=== PATIENT | male | born 1955 | race Hispanic/Latino ===

== ENCOUNTER 2016-12-19 10:06 | Inpatient (IN) | payer OTHER ==
[2016-12-19] MEDS ORDERED: Sodium Chloride 0.9% 1,000 ML IV STA ×2 (10:55→11:09)
--- NOTE | 2016-12-19 10:55 | ED PDOC ---
Arrival/HPI - General Historian: Patient - History of Present Illness Time/Duration: < month Symptom Onset: Gradual Symptom Course: Worsening Quality: Other (described as a numbness type of pain) Severity Level: 10 <Chencho Ruiz - Last Filed: 12/19/16 12:30> <Fan Kessler - Last Filed: 12/19/16 12:40> - General Chief Complaint: Lower Extremity Problem/Injury Time Seen by Provider: 12/19/16 10:24 - History of Present Illness Narrative History of Present Illness (Text): 12/19/16 10:48 This is a 60 year old with PMHx CAD s/p CABG and stents, DM, HTN who presents complaining of right first toe pain. Patient states that it began about 2 weeks ago where it started off as a blister before developing into an ulcer, and he sought treatment. Patient could not specify whether the provider he saw was a PCP or a nondestructive tester. Patient was prescribed 7 days of Augmentin 875 BID and failed outpatient treatment. Patient states that the pain feels like a numbness that is 10/10 and non-radiating. Patient states that he believes it got worse because he has been walking on it. Patient denies fever, chills, chest pain, dyspnea, abdominal pain, dysuria. PMD: Dr. Cam (Chencho Ruiz) Past Medical History - Infectious Disease Hx of Infectious Diseases: None - Tetanus Immunization Tetanus Immunization: Up to Date - Cardiac Hx Hypertension: Yes Hx Pacemaker: No - Pulmonary Hx Respiratory Disorders: Yes Hx Sleep Apnea: Yes - Neurological Hx Paralysis: No - HEENT Hx HEENT Disorder: No - Renal Hx Renal Disorder: No - Endocrine/Metabolic Hx Endocrine Disorders: Yes Hx Diabetes Mellitus Type 2: Yes - Hematological/Oncological Hx Blood Transfusions: No (UNKNOWN- ) Hx Blood Transfusion Reaction: No - Integumentary Hx Dermatological Disorder: No - Musculoskeletal/Rheumatological Hx Musculoskeletal Disorders: Yes (HAND) - Gastrointestinal Hx Gastrointestinal Disorders: No - Genitourinary/Gynecological Other/Comment: R mastectomy at age14 - Psychiatric Hx Emotional Abuse: No Hx Physical Abuse: No Hx Substance Use: No (DENIED PASR ABUSE) - Surgical History Hx Appendectomy: Yes Hx Coronary Stent: Yes (x7) Hx Musculoskeletal Surgery: Yes Hx Open Heart Surgery: Yes (Bypass x 5) Hx Tonsillectomy: Yes Other/Comment: Heart Stents x 7 - Anesthesia Hx Anesthesia Reactions: No Hx Malignant Hyperthermia: No - Suicidal Assessment Feels Threatened In Home Enviroment: No <Chencho Ruiz - Last Filed: 12/19/16 12:30> Family/Social History Smoking Status: Never Smoked Hx Alcohol Use: Yes Frequency of alcohol use: Socially Hx Substance Use: No (DENIED PASR ABUSE) Hx Substance Use Treatment: No <Chencho Ruiz - Last Filed: 12/19/16 12:30> Family/Social History: No Known Family HX <Sukhwinder Kesslero Brant - Last Filed: 12/19/16 12:40> Allergies/Home Meds <Chencho Ruiz - Last Filed: 12/19/16 12:30> <Sukhwinder Kesslero Brant - Last Filed: 12/19/16 12:40> Allergies/Adverse Reactions: Allergies No Known Allergies Allergy (Verified 12/19/16 10:17) Home Medications: Home Meds Medication Instructions Recorded Confirmed Unobtainable 12/19/16 12/19/16 Review of Systems - Physician Review All systems were reviewed & negative as marked: Yes - Review of Systems Constitutional: Normal. absent: Fevers Eyes: Normal ENT: Normal Respiratory: Normal. absent: SOB Cardiovascular: Normal. absent: Chest Pain Gastrointestinal: Normal. absent: Abdominal Pain Genitourinary Male: Normal. absent: Dysuria Musculoskeletal: Other (right first toe pain) Skin: Ulcer (right first toe) Neurological: Normal Endocrine: Normal Hemo/Lymphatic: Normal Psychiatric: Normal <Chencho Ruiz - Last Filed: 12/19/16 12:30> Physical Exam Vital Signs Reviewed: Yes Temperature: Afebrile Blood Pressure: Normal Pulse: Regular Respiratory Rate: Normal Appearance: Positive for: Comfortable Pain Distress: None Mental Status: Positive for: Alert and Oriented X 3 - Systems Exam Head: Present: Atraumatic, Normocephalic Pupils: Present: PERRL Extroacular Muscles: Present: EOMI Conjunctiva: Present: Normal Mouth: Present: Moist Mucous Membranes Neck: Present: Normal Range of Motion Respiratory/Chest: Present: Clear to Auscultation, Good Air Exchange. No: Accessory Muscle Use Cardiovascular: Present: Regular Rate and Rhythm, Normal S1, S2 Abdomen: Present: Distention, Normal Bowel Sounds. No: Tenderness Upper Extremity: Present: Normal Inspection, NORMAL PULSES Lower Extremity: Present: Other (right first toe is warm to the touch. Ulcer on the underside of the first right toe not actively draining.). No: CALF TENDERNESS, NORMAL PULSES (diminished pulses bilaterally) Skin: Present: Warm, Dry. No: Rashes Psychiatric: Present: Alert, Oriented x 3 <Chencho Ruiz - Last Filed: 12/19/16 12:30> Medical Decision Making - Lab Interpretations I have reviewed the lab results: Yes <Chencho Ruiz - Last Filed: 12/19/16 12:30> <Fan Kessler - Last Filed: 12/19/16 12:40> ED Course and Treatment: 12/19/16 11:02 CBC, CMP, VBG with shock, Blood cultures, NS 2L bolus 12/19/16 11:02 Patient discovered with fingerstick glucose 500, so VBG with shock and NS ordered. Spoken with podiatry resident who stated that the Xray images were suspicious of a destructive process. Spoken with Dr. Cam at 12:25 who agreed for admission. (Chencho Ruiz) 12/19/16 12:15 60 yo male presents with toe pain. No fever. Glucose found to be elevated. Labs reviewed. No DKA. Glucose improving. Podiatry consulted. Vancomycin IV and Rocephin IV ordered for tx of Osteo. Signed out to Dr. Garcia to f/u glucose and admit to Dr. Cam. (Fan Kessler) - Lab Interpretations Lab Results: 12/19/16 10:55 12/19/16 10:55 Lab Results 12/19/16 12:33: POC Glucose (mg/dL) 319 H 12/19/16 10:55: pO2 79 H, VBG pH 7.34, VBG pCO2 46.0, VBG HCO3 24.8, VBG Total CO2 26.2, VBG O2 Sat (Calc) 97.2 H, VBG Base Excess -1.3 L, VBG Potassium 5.1, Sodium 129.0 L, Chloride 93.0 L, Glucose 706 H*, Lactate 2.7 H, FiO2 21.0, Venous Blood Potassium 5.1 12/19/16 10:55: Sodium 131 L, Chloride 94 L, Potassium 5.1 H, Carbon Dioxide 23 , Anion Gap 19, BUN 52 H, Creatinine 1.9 H, Est GFR ( Amer) 44, Est GFR ( Non-Af Amer) 36, Random Glucose 611 H* D, Calcium 9.2, Total Bilirubin 0.4, AST 23, ALT 26, Alkaline Phosphatase 96, Total Protein 7.6, Albumin 3.9, Globulin 3.7, Albumin/Globulin Ratio 1.1 12/19/16 10:55: WBC 11.8 H D, RBC 3.87, Hgb 11.5 L, Hct 34.5 L, MCV 89.1, MCH 29.7, MCHC 33.3, RDW 12.6, Plt Count 266, MPV 9.8, Gran % 74.8 H, Lymph % (Auto ) 17.1 L, Kane % (Auto) 6.3 H, Eos % (Auto) 1.4 L, Baso % (Auto) 0.4, Gran # 8.85 H, Lymph # 2.0, Kane # 0.8 H, Eos # 0.2, Baso # 0.05 12/19/16 10:43: POC Glucose (mg/dL) > 500 H* - RAD Interpretation Radiology Orders: 12/19/16 10:43 FOOT RIGHT 3 VIEWS ROUTINE [RAD] Stat - Medication Orders Current Medication Orders: Vancomycin HCl (Vancomycin 1gm) 1 gm in 250 mls @ 167 mls/hr IVPB STAT STA PRN Reason: Protocol Stop: 12/19/16 12:39 Last Admin: 12/19/16 11:15 Dose: 167 mls/hr Ceftriaxone Sodium (Rocephin 2 Gm Ivpb) 2 gm in 100 mls @ 100 mls/hr IVPB STAT STA PRN Reason: Protocol Stop: 12/19/16 12:46 Sodium Chloride (Sodium Chloride 0.9%) 1,000 mls @ 100 mls/hr IV .Q10H LA Insulin Human Regular (Humulin R Med) 0 units SC ACHS LA PRN Reason: Protocol Insulin Lispro Protam/Lispro Human (Humalog Mix 75/25) 10 units SC ACBD LA Discontinued Medications Sodium Chloride (Sodium Chloride 0.9%) 1,000 mls @ 999 mls/hr IV .Q1H1M STA Stop: 12/19/16 11:55 Last Admin: 12/19/16 11:14 Dose: 999 mls/hr Sodium Chloride (Sodium Chloride 0.9%) 1,000 mls @ 999 mls/hr IV .Q1H1M STA Stop: 12/19/16 12:09 Last Admin: 12/19/16 11:45 Dose: 999 mls/hr Insulin Human Regular (Humulin R) 10 units IV STAT STA Stop: 12/19/16 11:27 Last Admin: 12/19/16 11:46 Dose: 10 units Disposition/Present on Arrival - Present on Arrival Any Indicators Present on Arrival: No History of DVT/PE: No History of Uncontrolled Diabetes: No Urinary Catheter: No History of Decub. Ulcer: No History Surgical Site Infection Following: None - Disposition Have Diagnosis and Disposition been Completed?: Yes Disposition Time: 12:25 <Chencho Ruiz - Last Filed: 12/19/16 12:30> <Fan Kessler - Last Filed: 12/19/16 12:40> - Disposition Diagnosis: Diabetic foot ulcer, Hyperglycemia Disposition: HOSPITALIZED Patient Problems: Current Active Problems Problem Status Onset Diabetic foot ulcer Acute Hyperglycemia Acute Condition: FAIR Referrals: Roberto Hung MD [Primary Care Provider] - Follow up with primary Forms: [employer] ([place] Citizen)
[2016-12-19 11:00] LABS: VENOUS BLOOD GAS BASE EXCESS -1.3 mmol/L (0.0-2.0); VENOUS BLOOD PH 7.34 (7.32-7.43)
[2016-12-19 11:01] LABS: BASO # 0.05 K/mm3 (0.0-2.0); BASO % 0.4 % (0.0-3.0); EOS # 0.2 (0.0-0.7); EOS % 1.4 % (1.5-5.0); GRAN # 8.85 (1.4-6.5); GRAN % 74.8 % (50.0-68.0); HEMATOCRIT 34.5 % (42.0-52.0); LYMPH % 17.1 % (22.0-35.0); MEAN CELL VOLUME 89.1 fl (80.0-105.0); MEAN CORPUSCULAR HEMOGLOBIN 29.7 pg (25.0-35.0); MEAN CORPUSCULAR HGB CONC 33.3 g/dl (31.0-37.0); MEAN PLATELET VOLUME 9.8 fl (7.0-11.0); MONO # 0.8 (0.1-0.6); MONO % 6.3 % (1.0-6.0); RED CELL DISTRIBUTION WIDTH 12.6 % (11.5-14.5); WHITE BLOOD COUNT 11.8 10^3/ul (4.5-11.0)
[2016-12-19] MEDS ORDERED: Vancomycin 1gm in NS 250ml 1 GM/250 ML BAG IVPB STA (11:10)
[2016-12-19 11:12] LABS: ALB/GLOB RATIO 1.1 (1.1-1.8); BILIRUBIN,TOTAL 0.4 mg/dL (0.2-1.3); CALCIUM 9.2 mg/dL (8.4-10.5); POTASSIUM 5.1 mmol/L (3.6-5.0); TOTAL PROTEIN 7.6 g/dL (5.8-8.3)
[2016-12-19] MEDS ORDERED: Insulin Regular 1 UNITS/0.01 ML ML IV STA (11:26)
[2016-12-19] MEDS ORDERED: cefTRIAXone 2 GM IN NS 2 GM/100 ML BAG IVPB STA (11:47)
--- NOTE | 2016-12-19 11:58 | CP.PCM.CON ---
History of Present Illness - History of Present Illness History of Present Illness: Podiatry Consult Note - Dr. Wesley 60 year old male patient PMHx DM, HTN, CAD seen in ED for right great toe wound. Patient states the wound developed about 2 weeks ago, and relates that saw Dr. Zamora at an urgent care facility for treatment. Patient states he was prescribed 7 days of Augmentin twice a day, and has since finished the prescription. Patient has also been doing daily epsom salt soaks and daily applications of Neosporin to wound. Patient denies any pain to his right great toe, but believes his wound has been getting worse. Patient also complains of a small wound on the distal tip of his left great toe that he has had for 2 weeks as well. Patient denies any pain to his left great toe wound. Patient denies N/V /F/D/C/SOB/calf pain. No other pedal complaints at this time. PMH: DM, HTN, CAD PSH: CABG, Appendectomy, carpal tunnel release, removal of tumor FH: unknown SH: denies ETOH, denies tobacco use Meds: see med list All: NKDA Review of Systems - Review of Systems All systems: reviewed and no additional remarkable complaints except (as per HPI ) Past Patient History - Infectious Disease Hx of Infectious Diseases: None - Tetanus Immunizations Tetanus Immunization: Up to Date - Past Social History Smoking Status: Never Smoked - CARDIAC Hx Hypertension: Yes Hx Pacemaker: No - PULMONARY Hx Respiratory Disorders: Yes Hx Sleep Apnea: Yes - NEUROLOGICAL Hx Paralysis: No - HEENT Hx HEENT Problems: No - RENAL Hx Chronic Kidney Disease: No - ENDOCRINE/METABOLIC Hx Endocrine Disorders: Yes Hx Diabetes Mellitus Type 2: Yes - HEMATOLOGICAL/ONCOLOGICAL Hx Blood Transfusions: No (UNKNOWN- ) Hx Blood Transfusion Reaction: No - INTEGUMENTARY Hx Dermatological Problems: No - MUSCULOSKELETAL/RHEUMATOLOGICAL Hx Musculoskeletal Disorders: Yes (HAND) - GASTROINTESTINAL Hx Gastrointestinal Disorders: No - GENITOURINARY/GYNECOLOGICAL Other/Comment: R mastectomy at age14 - PSYCHIATRIC Hx Emotional Abuse: No Hx Physical Abuse: No Hx Substance Use: No (DENIED PASR ABUSE) - SURGICAL HISTORY Hx Appendectomy: Yes Hx Coronary Stent: Yes (x7) Hx Musculoskeletal Surgery: Yes Hx Open Heart Surgery: Yes (Bypass x 5) Hx Tonsillectomy: Yes Other/Comment: Heart Stents x 7 - ANESTHESIA Hx Anesthesia Reactions: No Hx Malignant Hyperthermia: No Meds Allergies/Adverse Reactions: Allergies Allergy/AdvReac Type Severity Reaction Status Date / Time No Known Allergies Allergy Verified 12/19/16 20:00 - Medications Medications: Current Medications Sodium Chloride (Sodium Chloride 0.9%) 1,000 mls @ 999 mls/hr IV .Q1H1M STA Stop: 12/19/16 11:55 Last Admin: 12/19/16 11:14 Dose: 999 mls/hr Sodium Chloride (Sodium Chloride 0.9%) 1,000 mls @ 999 mls/hr IV .Q1H1M STA Stop: 12/19/16 12:09 Last Admin: 12/19/16 11:45 Dose: 999 mls/hr Vancomycin HCl (Vancomycin 1gm) 1 gm in 250 mls @ 167 mls/hr IVPB STAT STA PRN Reason: Protocol Stop: 12/19/16 12:39 Last Admin: 12/19/16 11:15 Dose: 167 mls/hr Ceftriaxone Sodium (Rocephin 2 Gm Ivpb) 2 gm in 100 mls @ 100 mls/hr IVPB STAT STA PRN Reason: Protocol Stop: 12/19/16 12:46 Physical Exam - Constitutional Appears: Well, Non-toxic, No Acute Distress - Extremities Exam Additional comments: VASC: DP pulse palpable 2/4 b/l. PT pulse weakly palpable 1/4 b/l. CFT <3 seconds to digits x10. TG warm to warm b/l. Non-pitting edema noted to bilateral LE. Increase in warmth to right hallux. NEURO: Gross sensation absent bilaterally. DERM: Ulceration noted to plantar aspect of right hallux measuring approximately 1.5 x 1.3 x 0.3cm - ulcer is noted to have a mixed fibrogranular base with hyperkeratotic rim and malodor. No drainage or purulence noted. (-) probe to bone. Serous blister noted to distal tuft of right hallux. Erythema noted to right hallux extending proximally to the 1st MPJ. Superficial ulceration noted to plantar aspect of left hallux measuring approximately 0.3 x 0.2 x 0.1 cm with granular base - no drainage, purulence, fluctuance, malodor noted to left ulceration. (-)probe to bone ORTHO: Pain on palpation noted to right hallux plantar ulceration. Right foot XR: cortical destruction noted to the distomedial aspect of hallucal distal phalanx - Neurological Exam Neurological exam: Alert, Oriented x3 - Psychiatric Exam Psychiatric exam: Normal Affect, Normal Mood Results - Vital Signs Recent Vital Signs: Last Vital Signs Temp 98.2 F 12/19/16 10:10 Pulse 71 12/19/16 10:10 Resp 16 12/19/16 10:10 BP 112/71 12/19/16 10:10 Pulse Ox 95 12/19/16 10:10 - Labs Result Diagrams: 12/20/16 06:54 12/20/16 06:54 Labs: Laboratory Results - last 24 hr 12/19/16 12/19/16 12/19/16 10:43 10:55 10:55 WBC 11.8 H D RBC 3.87 Hgb 11.5 L Hct 34.5 L MCV 89.1 MCH 29.7 MCHC 33.3 RDW 12.6 Plt Count 266 MPV 9.8 Gran % 74.8 H Lymph % (Auto) 17.1 L Rowan % (Auto) 6.3 H Eos % (Auto) 1.4 L Baso % (Auto) 0.4 Gran # 8.85 H Lymph # 2.0 Rowan # 0.8 H Eos # 0.2 Baso # 0.05 pO2 VBG pH VBG pCO2 VBG HCO3 VBG Total CO2 VBG O2 Sat (Calc) VBG Base Excess VBG Potassium Sodium 131 L Chloride 94 L Glucose Lactate FiO2 Potassium 5.1 H Carbon Dioxide 23 Anion Gap 19 BUN 52 H Creatinine 1.9 H Est GFR ( Amer) 44 Est GFR (Non-Af Amer) 36 POC Glucose (mg/dL) > 500 H* Random Glucose 611 H* D Calcium 9.2 Total Bilirubin 0.4 AST 23 ALT 26 Alkaline Phosphatase 96 Total Protein 7.6 Albumin 3.9 Globulin 3.7 Albumin/Globulin Ratio 1.1 Venous Blood Potassium 12/19/16 10:55 WBC RBC Hgb Hct MCV MCH MCHC RDW Plt Count MPV Gran % Lymph % (Auto) Rowan % (Auto) Eos % (Auto) Baso % (Auto) Gran # Lymph # Rowan # Eos # Baso # pO2 79 H VBG pH 7.34 VBG pCO2 46.0 VBG HCO3 24.8 VBG Total CO2 26.2 VBG O2 Sat (Calc) 97.2 H VBG Base Excess -1.3 L VBG Potassium 5.1 Sodium 129.0 L Chloride 93.0 L Glucose 706 H* Lactate 2.7 H FiO2 21.0 Potassium Carbon Dioxide Anion Gap BUN Creatinine Est GFR ( Amer) Est GFR (Non-Af Amer) POC Glucose (mg/dL) Random Glucose Calcium Total Bilirubin AST ALT Alkaline Phosphatase Total Protein Albumin Globulin Albumin/Globulin Ratio Venous Blood Potassium 5.1 Assessment & Plan - Assessment and Plan (Free Text) Assessment: 60 year old male PMHx DM, HTN with right hallux ulceration, cellulitis, and distal phalanx osteomyelitis Plan: Patient seen and evaluated in ED Discussed with Chart, vitals, labs reviewed = afebrile, WBC 11.8, glucose 611, ESR 110 Right foot XR reviewed: Findings concerning for osteomyelitis in the tip of the distal phalanx of great toe, cellulitis and ulceration in great toe Bacitracin applied to right hallux ulceration and dressed with DSD Serous blister lanced and dressed with bacitracin and DSD Wound culture taken Silvadene ordered Surgical shoe ordered Recommend admission for osteomyelitis Podiatry will continue to follow while in house
[2016-12-19] MEDS: Sodium Chloride 0.9% 1,000 ML IV SCH ×2 (13:01→23:00)
--- NOTE | 2016-12-19 13:11 | RAD ---
PROCEDURE: Right Foot Radiographs. HISTORY: right first toe ulcer. r/o osteomyelitis COMPARISON: 12/31/2014 FINDINGS: BONES: There is cortical erosion in the tuft of the distal phalanx of the great toe. Bone alignment and mineralization are normal. JOINTS: Normal. SOFT TISSUES: There is soft tissue swelling and ulceration of the tip of the great toe. OTHER FINDINGS: None. IMPRESSION: Findings are concerning for osteomyelitis in the tip of the distal phalanx of the great toe, cellulitis and ulceration in the great toe.
[2016-12-19] MEDS: Insulin Reg-MEDIUM-Coverage SC SCH ×2 (15:30→22:38)
--- NOTE | 2016-12-19 15:51 | CP.PCM.CON ---
History of Present Illness - History of Present Illness History of Present Illness: 60 year old male with PMH of HTN, CAD S/P CABG, S/P appendectomy, S/P carpal tunnel release, obesity with BMI 32 developed a right hallux wound about 2 weeks ago. He was given Augmentin and topical antibiotic ointment for 7 days, but he continued to walk which worsened his wound. He has some discharge from it. He denies walking barefoot on soil, no animal contacts, no soaking feet in water. He also denies fever or chills, no nausea or vomiting, no chest pain, no SOB, no abdominal pain, no diarrhea, no dysuria, no cough or colds. Foot xray is suggestive of osteomyelitis. Infectious diseases consult is requested to further evaluate and manage. Review of Systems - Review of Systems All systems: reviewed and no additional remarkable complaints except (as per HPI ) Past Patient History - Infectious Disease Hx of Infectious Diseases: None - Tetanus Immunizations Tetanus Immunization: Up to Date - Past Social History Smoking Status: Never Smoked - CARDIAC Hx Hypertension: Yes Hx Pacemaker: No - PULMONARY Hx Respiratory Disorders: Yes Hx Sleep Apnea: Yes - NEUROLOGICAL Hx Paralysis: No - HEENT Hx HEENT Problems: No - RENAL Hx Chronic Kidney Disease: No - ENDOCRINE/METABOLIC Hx Endocrine Disorders: Yes Hx Diabetes Mellitus Type 2: Yes - HEMATOLOGICAL/ONCOLOGICAL Hx Blood Transfusions: No (UNKNOWN- ) Hx Blood Transfusion Reaction: No - INTEGUMENTARY Hx Dermatological Problems: No - MUSCULOSKELETAL/RHEUMATOLOGICAL Hx Musculoskeletal Disorders: Yes (HAND) - GASTROINTESTINAL Hx Gastrointestinal Disorders: No - GENITOURINARY/GYNECOLOGICAL Other/Comment: R mastectomy at age14 - PSYCHIATRIC Hx Emotional Abuse: No Hx Physical Abuse: No Hx Substance Use: No (DENIED PASR ABUSE) - SURGICAL HISTORY Hx Appendectomy: Yes Hx Coronary Stent: Yes (x7) Hx Musculoskeletal Surgery: Yes Hx Open Heart Surgery: Yes (Bypass x 5) Hx Tonsillectomy: Yes Other/Comment: Heart Stents x 7 - ANESTHESIA Hx Anesthesia Reactions: No Hx Malignant Hyperthermia: No Meds Allergies/Adverse Reactions: Allergies Allergy/AdvReac Type Severity Reaction Status Date / Time No Known Allergies Allergy Verified 12/19/16 10:17 - Medications Medications: Current Medications Sodium Chloride (Sodium Chloride 0.9%) 1,000 mls @ 100 mls/hr IV .Q10H LA Last Admin: 12/19/16 13:01 Dose: 100 mls/hr Doxycycline Hyclate 100 mg/ (Sodium Chloride) 100 mls @ 100 mls/hr IVPB Q12 LA PRN Reason: Protocol Ampicillin Sodium/Sulbactam (Sodium 3 gm/ Sodium Chloride) 100 mls @ 200 mls/ hr IVPB Q6 LA PRN Reason: Protocol Insulin Human Regular (Humulin R Med) 0 units SC ACHS LA PRN Reason: Protocol Insulin Lispro Protam/Lispro Human (Humalog Mix 75/25) 10 units SC ACBD LA Silver Sulfadiazine (Silvadene 1% 25 Gm) 0 gm TP DAILY LA Physical Exam - Constitutional Appears: Non-toxic, No Acute Distress - Head Exam Head Exam: NORMAL INSPECTION - ENT Exam ENT Exam: Mucous Membranes Moist - Neck Exam Neck exam: Negative for: Lymphadenopathy, Meningismus - Respiratory Exam Respiratory Exam: Decreased Breath Sounds - Cardiovascular Exam Cardiovascular Exam: +S1, +S2 - GI/Abdominal Exam GI & Abdominal Exam: Soft. absent: Tenderness - Extremities Exam Additional comments: right foot with dressings in place Results - Vital Signs Recent Vital Signs: Last Vital Signs Temp 98.2 F 12/19/16 10:10 Pulse 69 12/19/16 13:24 Resp 16 12/19/16 13:24 BP 126/74 12/19/16 13:24 Pulse Ox 98 12/19/16 13:24 - Labs Result Diagrams: 12/19/16 10:55 12/19/16 10:55 Labs: Laboratory Results - last 24 hr 12/19/16 12:33 POC Glucose (mg/dL) 319 H Assessment & Plan - Assessment and Plan (Free Text) Plan: Assessment Sepsis due to infected right hallux infected wound with associated probable osteomyelitis HTN CAD S/P CABG S/P appendectomy S/P carpal tunnel release obesity with BMI 32 Plan Started patient on Doxycycline and Unasyn pending blood cx, wound cx, further plans of Podiatry will monitor clinically
[2016-12-19] MEDS ORDERED: Insulin Lispro (humaLOG) MIX 75/25(10 ml) SC SCH (16:30)
[2016-12-19] MEDS: Ampicillin/Sulbactam 3 GM in Sodium Chloride 0.9% 100 ML IVPB SCH (17:54)
[2016-12-19 20:42] VITALS: BMI 32.2
[2016-12-19] MEDS ORDERED: Pneumococcal 23-Valent Vaccine IM ONE (20:42)
[2016-12-19 21:47] LABS: VENOUS BLOOD GAS BASE EXCESS 1.7 mmol/L (0.0-2.0); VENOUS BLOOD PH 7.41 (7.32-7.43)
[2016-12-20] MEDS: Ampicillin/Sulbactam 3 GM in Sodium Chloride 0.9% 100 ML IVPB SCH ×2 (01:00→06:26)
[2016-12-20] MEDS ORDERED: Silver Sulfadiazine 1% Cream (25 gm) TP SCH (07:00)
[2016-12-20 07:03] LABS: MEAN CELL VOLUME 88.6 fl (80.0-105.0); MEAN CORPUSCULAR HEMOGLOBIN 29.4 pg (25.0-35.0); MEAN CORPUSCULAR HGB CONC 33.1 g/dl (31.0-37.0); MEAN PLATELET VOLUME 9.6 fl (7.0-11.0); RED CELL DISTRIBUTION WIDTH 12.4 % (11.5-14.5); WHITE BLOOD COUNT 10.8 10^3/ul (4.5-11.0)
[2016-12-20 08:06] LABS: ALB/GLOB RATIO 0.9 (1.1-1.8); ALKALINE PHOSPHATASE 94 U/L (38-126); ALT/SGPT 21 U/L (7-56); AST/SGOT 22 U/L (17-59); BILIRUBIN,TOTAL 0.3 mg/dL (0.2-1.3); BLOOD UREA NITROGEN 39 mg/dL (7-21); CALCIUM 8.8 mg/dL (8.4-10.5); CARBON DIOXIDE 26 mmol/L (21-33); CHLORIDE 104 mmol/L (98-107); GFR AFRICAN-AMERICAN > 60; MAGNESIUM 2.2 mg/dL (1.7-2.2); PHOSPHOROUS 3.3 mg/dL (2.5-4.5); POTASSIUM 5.3 mmol/L (3.6-5.0); SODIUM 140 mmol/L (132-148); TOTAL PROTEIN 7.4 g/dL (5.8-8.3)
[2016-12-20 08:31] LABS: GLUCOSE,RANDOM 391 mg/dL (70-110)
[2016-12-20] MEDS ORDERED: Insulin Detemir 100 units/ml Vial (Levemir) SC SCH ×2 (08:45→22:00)
[2016-12-20] MEDS ORDERED: Insulin Regular 1 UNITS/0.01 ML ML SC SCH ×2 (08:45→11:54)
[2016-12-20] MEDS: Pantoprazole 40 mg EC Tab PO SCH (10:42)
[2016-12-20] MEDS: Insulin Regular 1 UNITS/0.01 ML ML SC SCH ×2 (12:18→17:00)
--- NOTE | 2016-12-20 14:04 | CP.PCM.PN ---
Subjective - Date & Time of Evaluation Date of Evaluation: 12/20/16 Time of Evaluation: 12:35 - Subjective Subjective: No new complaints, no fevers. Objective - Vital Signs/Intake and Output Vital Signs (last 24 hours): Temp Pulse Resp BP Pulse Ox 98.2 F 63 20 144/70 95 12/20/16 08:00 12/20/16 08:00 12/20/16 08:00 12/20/16 08:00 12/20/16 08:00 Intake and Output: 12/20/16 12/20/16 06:59 18:59 Intake Total 1080 660 Output Total 2250 1000 Balance -1170 -340 - Medications Medications: Current Medications Atorvastatin Calcium (Lipitor) 80 mg PO HS LA Carvedilol (Coreg) 25 mg PO DAILY LA Furosemide (Lasix) 40 mg PO DAILY LA Sodium Chloride (Sodium Chloride 0.9%) 1,000 mls @ 100 mls/hr IV .Q10H LA Last Admin: 12/19/16 23:00 Dose: 100 mls/hr Doxycycline Hyclate 100 mg/ (Sodium Chloride) 100 mls @ 100 mls/hr IVPB Q12 LA PRN Reason: Protocol Last Admin: 12/19/16 22:37 Dose: 100 mls/hr Ampicillin Sodium/Sulbactam (Sodium 3 gm/ Sodium Chloride) 100 mls @ 200 mls/ hr IVPB Q6 LA PRN Reason: Protocol Last Admin: 12/20/16 06:26 Dose: 200 mls/hr Insulin Detemir (Levemir) 40 unit SC ACB LA Insulin Detemir (Levemir) 50 unit SC HS LA Insulin Human Regular (Humulin R) 40 units SC ACB LA Insulin Human Regular (Humulin R) 32 units SC ACL LA Insulin Human Regular (Humulin R) 40 units SC ACD LA Isosorbide Mononitrate (Imdur Er) 30 mg PO DAILY LA Pantoprazole Sodium (Protonix Ec Tab) 40 mg PO DAILY [facility] Silver Sulfadiazine (Silvadene 1% 25 Gm) 0 gm TP DAILY LA Spironolactone (Aldactone) 50 mg PO DAILY LA - Labs Labs: 12/20/16 06:54 12/20/16 06:54 - Constitutional Appears: Non-toxic, No Acute Distress - Head Exam Head Exam: NORMAL INSPECTION - ENT Exam ENT Exam: Mucous Membranes Moist - Neck Exam Neck Exam: absent: Lymphadenopathy, Meningismus - Respiratory Exam Respiratory Exam: Decreased Breath Sounds - Cardiovascular Exam Cardiovascular Exam: +S1, +S2 - GI/Abdominal Exam GI & Abdominal Exam: Soft. absent: Tenderness Assessment and Plan - Assessment and Plan (Free Text) Plan: Assessment Sepsis due to infected right hallux infected wound with associated probable osteomyelitis HTN CAD S/P CABG S/P appendectomy S/P carpal tunnel release obesity with BMI 32 Plan continue Doxycycline and Unasyn day 2 pending final blood cx (negative x 1 day) , wound cx results; follow up further plans of Podiatry will continue to monitor clinically
--- NOTE | 2016-12-20 14:32 | CP.PCM.PN ---
<Brock Galvez - Last Filed: 12/20/16 14:33> Subjective - Date & Time of Evaluation Date of Evaluation: 12/20/16 Time of Evaluation: 14:31 - Subjective Subjective: Podiatry Progress Note - Dr. Carrero 60 year old male patient PMHx DM, HTN, CAD seen at bedside with attending, Dr. Carrero, for right great toe ulceration. Patient seen resting comfortably, AAOx3 and NAD. Patient denies any acute events overnight. Patient denies any pain to his right foot. Per nursing, patient has not been compliant about wearing surgical shoe when ambulating. Patient denies N/V/F/D/C/SOB/calf pain. No other pedal complaints at this time. Objective - Vital Signs/Intake and Output Vital Signs (last 24 hours): Temp Pulse Resp BP Pulse Ox 98.2 F 94 H 20 158/77 H 95 12/20/16 08:00 12/20/16 10:41 12/20/16 08:00 12/20/16 10:41 12/20/16 08:00 Intake and Output: 12/20/16 12/20/16 06:59 18:59 Intake Total 1080 660 Output Total 2250 1000 Balance -1170 -340 - Medications Medications: Current Medications Atorvastatin Calcium (Lipitor) 80 mg PO [facility] Carvedilol (Coreg) 25 mg PO DAILY [facility] Last Admin: 12/20/16 10:41 Dose: 25 mg Furosemide (Lasix) 40 mg PO DAILY [facility] Last Admin: 12/20/16 10:41 Dose: 40 mg Sodium Chloride (Sodium Chloride 0.9%) 1,000 mls @ 100 mls/hr IV .Q10H [facility] Last Admin: 12/19/16 23:00 Dose: 100 mls/hr Doxycycline Hyclate 100 mg/ (Sodium Chloride) 100 mls @ 100 mls/hr IVPB Q12 [place] PRN Reason: Protocol Last Admin: 12/19/16 22:37 Dose: 100 mls/hr Ampicillin Sodium/Sulbactam (Sodium 3 gm/ Sodium Chloride) 100 mls @ 200 mls/ hr IVPB Q6 [place] PRN Reason: Protocol Last Admin: 12/20/16 06:26 Dose: 200 mls/hr Insulin Detemir (Levemir) 50 unit SC [facility] Insulin Detemir (Levemir) 20 unit SC ACB [facility] Insulin Human Regular (Humulin R) 32 units SC ACL [facility] Last Admin: 12/20/16 12:18 Dose: 32 units Insulin Human Regular (Humulin R) 40 units SC ACD [facility] Isosorbide Mononitrate (Imdur Er) 30 mg PO DAILY [facility] Last Admin: 12/20/16 10:42 Dose: 30 mg Pantoprazole Sodium (Protonix Ec Tab) 40 mg PO DAILY [facility] Last Admin: 12/20/16 10:42 Dose: 40 mg Silver Sulfadiazine (Silvadene 1% 25 Gm) 0 gm TP DAILY [facility] Spironolactone (Aldactone) 50 mg PO DAILY [facility] Last Admin: 12/20/16 10:52 Dose: 50 mg - Labs Labs: 12/20/16 06:54 12/20/16 06:54 - Constitutional Appears: Well, Non-toxic, No Acute Distress - Extremities Exam Additional comments: VASC: DP pulse palpable 2/4 b/l. PT pulse weakly palpable 1/4 b/l. CFT <3 seconds to digits x10. TG warm to warm b/l. Non-pitting edema noted to bilateral LE. Increase in warmth to right hallux. NEURO: Gross sensation absent bilaterally. DERM: Ulceration noted to plantar aspect of right hallux measuring approximately 1.5 x 1.3 x 0.3cm - ulcer is noted to have a mixed fibrogranular base with hyperkeratotic rim and malodor. No drainage or purulence noted. (-) probe to bone. Serous blister noted to distal tuft of right hallux - lanced at previous visit - no fluid expressed this visit. Erythema noted to right hallux extending proximally to the 1st MPJ. Superficial ulceration noted to plantar aspect of left hallux measuring approximately 0.3 x 0.2 x 0.1 cm with granular base - no drainage, purulence, fluctuance, malodor noted to left ulceration. (-) probe to bone ORTHO: No pain on palpation noted to right hallux plantar ulceration. 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 Carrero Chart, vitals, labs reviewed = afebrile, WBC trending downwards @ 10.8 ( yesterday 12/19/16 @ 11.8), glucose 389, ESR 12/19/16 110 RLE MRI ordered F/U right hallux ulcer wound culture results Silvadene applied to ulceration and right hallux dressed with DSD Patient to wear surgical shoes at all times when ambulating Per ID, patient was started on Doxycycline and Unasyn (day 2)pending final blood cx and wound cx results Podiatry will continue to follow patient while in house <Sonido Carrero - Last Filed: 12/21/16 11:34> Objective - Vital Signs/Intake and Output Vital Signs (last 24 hours): Temp Pulse Resp BP Pulse Ox 97.8 F 67 20 147/72 92 L 12/21/16 08:49 12/21/16 10:42 12/21/16 08:49 12/21/16 10:42 12/21/16 08:49 Intake and Output: 12/21/16 12/21/16 06:59 18:59 Intake Total 1200 Output Total 2600 Balance -1400 - Medications Medications: Current Medications Atorvastatin Calcium (Lipitor) 80 mg PO HS [facility] Last Admin: 12/20/16 22:35 Dose: 80 mg Carvedilol (Coreg) 25 mg PO DAILY [facility] Last Admin: 12/21/16 10:42 Dose: 25 mg Furosemide (Lasix) 40 mg PO DAILY [facility] Last Admin: 12/21/16 10:42 Dose: 40 mg Doxycycline Hyclate 100 mg/ (Sodium Chloride) 100 mls @ 100 mls/hr IVPB Q12 [place] PRN Reason: Protocol Last Admin: 12/21/16 10:43 Dose: 100 mls/hr Ampicillin Sodium/Sulbactam (Sodium 3 gm/ Sodium Chloride) 100 mls @ 200 mls/ hr IVPB Q6 [place] PRN Reason: Protocol Last Admin: 12/21/16 05:33 Dose: 200 mls/hr Insulin Detemir (Levemir) 50 unit SC HS [facility] Last Admin: 12/20/16 22:35 Dose: 25 unit Insulin Detemir (Levemir) 20 unit SC ACB [facility] Last Admin: 12/21/16 08:50 Dose: 20 unit Insulin Human Regular (Humulin R) 32 units SC ACL [facility] Last Admin: 12/20/16 12:18 Dose: 32 units Insulin Human Regular (Humulin R) 40 units SC ACD [facility] Last Admin: 12/20/16 17:00 Dose: 40 units Isosorbide Mononitrate (Imdur Er) 30 mg PO DAILY [facility] Last Admin: 12/21/16 10:43 Dose: 30 mg Pantoprazole Sodium (Protonix Ec Tab) 40 mg PO DAILY [facility] Last Admin: 12/21/16 10:43 Dose: 40 mg Silver Sulfadiazine (Silvadene 1% 25 Gm) 0 gm TP DAILY [facility] Spironolactone (Aldactone) 50 mg PO DAILY [facility] Last Admin: 12/21/16 10:42 Dose: 50 mg - Labs Labs: 12/21/16 06:30 12/21/16 06:30 Attending/Attestation - Attestation I have personally seen and examined this patient.: Yes I have fully participated in the care of the patient.: Yes I have reviewed all pertinent clinical information, including history, physical exam and plan: Yes
[2016-12-20] MEDS ORDERED: Sodium Chloride 0.9% 1,000 ML IV SCH (20:10)
[2016-12-21] MEDS: Ampicillin/Sulbactam 3 GM in Sodium Chloride 0.9% 100 ML IVPB SCH ×4 (00:49→18:40)
--- NOTE | 2016-12-21 05:29 | HP ---
CHIEF COMPLAINT AND HISTORY OF PRESENT ILLNESS: This is a 60-year-old male who is coming into the emergency room after he started noticing a ulcer that was forming on the right toe. He has a past medical history of diabetes type 2, hypertension, coronary artery disease. 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 He had gone to an urgent care center where he was given oral antibiotics. He had a 7-day course of Augmentin that he took and finished, but his ulcer did not improve. He was also treating his ulcer with Epsom salt and Neosporin. The patient says that his wound has been getting worse, so he came into the hospital for further evaluation. He has no complaints of any fevers or chills. No nausea, no vomiting. No dysuria, frequency, no nocturia, no abdominal pain, no back pain, no weakness in the arms or legs. REVIEW OF SYSTEMS: All of the review of systems are within normal limits except as mentioned. ALLERGIES: NO KNOWN DRUG ALLERGIES. HOME MEDICATIONS: The medication list has been reviewed. PAST MEDICAL HISTORY: 1. Diabetes type 2. 2. Hypertension. 3. Coronary artery disease, status post CABG. PAST SURGICAL HISTORY: 1. CABG. 2. Appendectomy. 3. Carpel tunnel release. FAMILY HISTORY: Father at 86 of old age. Mother at 54, she had diabetes and hypertension. SOCIAL HISTORY: The patient did have a history of smoking, but quit many years ago. He drinks socially. PHYSICAL EXAMINATION: VITAL SIGNS: Temperature is 98.2, pulse is 63, blood pressure 144/70, respirations 20, O2 saturation 95%. Height is 5 feet, 11 inches. Weight is 231 pounds. BMI is 32.2. GENERAL: The patient lying in bed, uncomfortable, and in no acute distress. HEENT: Atraumatic and normocephalic. Anicteric sclerae. Moist mucosa. [place] conjunctivae. No oral lesions. NECK: No JVD, anterior and posterior adenopathy, thyromegaly, or bruits. CARDIOVASCULAR: S1 and S2 regular. No murmur, rubs, or gallop. LUNGS: Clear to auscultation bilaterally. No wheezes, rales, or rhonchi. ABDOMEN: Bowel sounds are positive. Soft, nontender and nondistended. No hepatosplenomegaly. No rebound and no guarding EXTREMITIES: In the right toe there is 1.5 x 1.3 cm ulcer. There is odor coming from the toe. There is no purulent discharge. He also has superficial ulcer in the left toe, it is about 0.5 cm in diameter. NEUROLOGIC: No facial asymmetry. Tongue is midline. No uvula deviation. Power is 5/5 upper extremity and lower extremity. Sensation intact in upper extremity and lower extremity. PSYCHIATRIC: She is awake, alert and oriented x3. No anxiety or depression. She has normal affect. GENITOURINARY: No CVA tenderness. VASCULAR: 2+ pulses in the carotid pulses and pedal pulses. SKIN: No erythema or nodules SPINE: Shows normal curvature. EXTREMITIES: No cyanosis and clubbing, no edema. Right foot x-ray, there are signs concerning for osteomyelitis in the tip of the distal great toe. LABORATORY DATA: White count of 11.8, hemoglobin 11.5. Chemistry shows a glucose of 611 with a potassium of 5.1, sodium is 131, creatinine is 1.9. ASSESSMENT: 1. Diabetes type 2, uncontrolled with hyperkalemia. 2. Hyponatremia. 3. Acute kidney injury. 4. Hypertension. 5. Coronary artery disease, status post coronary artery bypass graft. 6. Obese with a BMI of 32. 7. Dyslipidemia. 8. R toe ulcer with probable [place] PLAN: The patient is going to be admitted to the hospital. He is going to need surgical evaluation by podiatry. I did review the podiatry note. The patient is also seen by infectious disease. He is going to be on antibiotics. He is on doxycycline for antibiotic. The patient is on Coreg for his coronary artery disease. He is also on Aldactone. He is on his insulin regimen for his diabetes. This has been adjusted according to what is formulated in the hospital. The patient is on IV fluids. I will decrease the patient's rate of his IV fluids. He had elevated glucose and probably had osmotic diuresis. The patient is on ampicillin/sulbactam for his antibiotics as well. has been ordered by podiatry. I appreciate their input. I have also asked Dr. Barriga from infectious disease to follow along. The patient is going to have repeat blood work tomorrow. We will continue to follow closely. Zain Cam MD [facility] # [id number] [place]
[2016-12-21 07:04] LABS: HEMATOCRIT 37.6 % (42.0-52.0); MEAN CELL VOLUME 89.3 fl (80.0-105.0); MEAN CORPUSCULAR HEMOGLOBIN 29.2 pg (25.0-35.0); MEAN CORPUSCULAR HGB CONC 32.7 g/dl (31.0-37.0); MEAN PLATELET VOLUME 9.5 fl (7.0-11.0); RED CELL DISTRIBUTION WIDTH 12.6 % (11.5-14.5)
[2016-12-21 07:31] LABS: ALKALINE PHOSPHATASE 90 U/L (38-126); ALT/SGPT 20 U/L (7-56); AST/SGOT 28 U/L (17-59); BILIRUBIN,TOTAL 0.3 mg/dL (0.2-1.3); BLOOD UREA NITROGEN 31 mg/dL (7-21); CARBON DIOXIDE 26 mmol/L (21-33); CHLORIDE 104 mmol/L (98-107); GFR AFRICAN-AMERICAN > 60; GLUCOSE,RANDOM 187 mg/dL (70-110); PHOSPHOROUS 3.3 mg/dL (2.5-4.5); POTASSIUM 4.4 mmol/L (3.6-5.0); SODIUM 141 mmol/L (132-148); TOTAL PROTEIN 7.7 g/dL (5.8-8.3)
[2016-12-21] MEDS: Insulin Detemir 100 units/ml Vial (Levemir) SC SCH ×2 (08:50→21:55)
--- NOTE | 2016-12-21 10:00 | PN ---
SUBJECTIVE: The patient has no complaints of any chest pain, no shortness of breath, no headache, no dizziness. PHYSICAL EXAMINATION: VITAL SIGNS: Temperature is 97.8, pulse of 63, blood pressure is 135/86 and respirations 20. GENERAL: The patient is lying in bed, flat, comfortable. HEENT: No oral lesion. Anicteric sclerae. Moist mucosa. NECK: No JVD, adenopathy, or thyromegaly. CARDIOVASCULAR: S1 and S2, regular. No murmurs, rubs, or gallops. LUNGS: Clear to auscultation bilaterally. No wheeze, rales, or rhonchi. ABDOMEN: Bowel sounds are positive, soft, nontender and nondistended. EXTREMITIES: No cyanosis, clubbing or edema. Right foot has dressing in place. ASSESSMENT: 1. Right toe ulcer with probable osteomyelitis. 2. Diabetes type 2, uncontrolled. 3. Hyponatremia. 4. Acute kidney injury. 5. Hyperkalemia. 6. Hypertension. 7. Coronary artery disease, status post coronary artery bypass graft. 8. Obese with a BMI of 32. 9. Dyslipidemia. PLAN: The patient is currently on Aldactone. He is going to continue with carvedilol. He is on doxycycline for antibiotics for his ulcer. He is on insulin regimen for his diabetes. The patient's sugar is better controlled. His last fingerstick last night was 165. His hemoglobin A1c is 16.4. He is uncontrolled on his diabetes. The patient is on Lipitor for dyslipidemia. He is on Protonix daily, he is going to continue with. He has been on IV fluids, I will discontinue his IV fluids at this point. His hyperkalemia was not most likely secondary to uncontrolled diabetes. Now, his diabetes is better, it continues to stay improved. I am waiting for MRI to be done. Zain Cam MD
[2016-12-21] MEDS: Pantoprazole 40 mg EC Tab PO SCH (10:43)
--- NOTE | 2016-12-21 11:25 | CP.PCM.PN ---
Subjective - Date & Time of Evaluation Date of Evaluation: 12/21/16 Time of Evaluation: 10:44 - Subjective Subjective: Podiatry Progress Note - Dr. Wesley 60 year old male patient PMHx DM, HTN, CAD seen at bedside for right great to ulceration. Patient seen resting in bed comfortably, AAOx3 and NAD. Patient denies any acute events overnight. Patient still denies any pain to his right foot. Patient has been ambulating in surgical shoe. Patient denies N/V/F/D/C/SOB /calf pain. No other pedal complaints at this time. Objective - Vital Signs/Intake and Output Vital Signs (last 24 hours): Temp Pulse Resp BP Pulse Ox 97.8 F 67 20 147/72 92 L 12/21/16 08:49 12/21/16 08:49 12/21/16 08:49 12/21/16 08:49 12/21/16 08:49 Intake and Output: 12/21/16 12/21/16 06:59 18:59 Intake Total 1200 Output Total 2600 Balance -1400 - Medications Medications: Current Medications Atorvastatin Calcium (Lipitor) 80 mg PO HS [facility] Last Admin: 12/20/16 22:35 Dose: 80 mg Carvedilol (Coreg) 25 mg PO DAILY [facility] Last Admin: 12/20/16 10:41 Dose: 25 mg Furosemide (Lasix) 40 mg PO DAILY [facility] Last Admin: 12/20/16 10:41 Dose: 40 mg Doxycycline Hyclate 100 mg/ (Sodium Chloride) 100 mls @ 100 mls/hr IVPB Q12 [place] PRN Reason: Protocol Last Admin: 12/20/16 22:35 Dose: 100 mls/hr Ampicillin Sodium/Sulbactam (Sodium 3 gm/ Sodium Chloride) 100 mls @ 200 mls/ hr IVPB Q6 [place] PRN Reason: Protocol Last Admin: 12/21/16 05:33 Dose: 200 mls/hr Insulin Detemir (Levemir) 50 unit SC HS [facility] Last Admin: 12/20/16 22:35 Dose: 25 unit Insulin Detemir (Levemir) 20 unit SC ACB [facility] Last Admin: 12/21/16 08:50 Dose: 20 unit Insulin Human Regular (Humulin R) 32 units SC ACL [facility] Last Admin: 12/20/16 12:18 Dose: 32 units Insulin Human Regular (Humulin R) 40 units SC ACD [facility] Last Admin: 12/20/16 17:00 Dose: 40 units Isosorbide Mononitrate (Imdur Er) 30 mg PO DAILY [facility] Last Admin: 12/20/16 10:42 Dose: 30 mg Pantoprazole Sodium (Protonix Ec Tab) 40 mg PO DAILY [facility] Last Admin: 12/20/16 10:42 Dose: 40 mg Silver Sulfadiazine (Silvadene 1% 25 Gm) 0 gm TP DAILY [facility] Spironolactone (Aldactone) 50 mg PO DAILY [facility] Last Admin: 12/20/16 10:52 Dose: 50 mg - Labs Labs: 12/21/16 06:30 12/21/16 06:30 - Constitutional Appears: Well, Non-toxic, No Acute Distress - Extremities Exam Additional comments: VASC: DP pulse palpable 2/4 b/l. PT pulse weakly palpable 1/4 b/l. CFT <3 seconds to digits x10. TG warm to warm b/l. Non-pitting edema noted to bilateral LE. Increase in warmth to right hallux. NEURO: Gross sensation absent bilaterally. DERM: Ulceration noted to plantar aspect of right hallux measuring approximately 1.5 x 1.3 x 0.3cm - ulcer is noted to have a mixed fibrogranular base with hyperkeratotic rim and malodor. No drainage or purulence noted. (-) probe to bone. Serous blister noted to distal tuft of right hallux - lanced at previous visit - serous drainaged expressed this visit. Erythema noted to right hallux extending proximally to the 1st MPJ. Superficial ulceration noted to plantar aspect of left hallux measuring approximately 0.3 x 0.2 x 0.1 cm with granular base - no drainage, purulence, fluctuance, malodor noted to left ulceration. (-)probe to bone ORTHO: No pain on palpation noted to right hallux plantar ulceration. 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 Wesley Chart, vitals, labs reviewed = afebrile, WBC increased @ 12.0 (trending upwards since yesterday, 12/20 @ 10.8), ESR 12/19 110, A1c 16.4 Serous blister deroofed Silvadene applied to wounds and right hallux dressed with DSD Dr. Gilberto Hung consulted for PICC line insertion Dr. Vel Puri consulted for evaluation for HBO therapy - A1c, CXR, EKG ordered Physical Therapy consulted - forefoot wedge shoe ordered; ambulation training for weight bearing in wedge shoe F/U Right hallux ulcer wound culture pending; awaiting report F/U RLE MRI Continue IV abx per ID - Doxycycline and Unsayn (day 3); pending final blood cx and wound cx Podiatry will continue to follow patient while in house
[2016-12-21] MEDS: Insulin Regular 1 UNITS/0.01 ML ML SC SCH ×2 (11:51→17:27)
--- NOTE | 2016-12-21 14:58 | CP.PCM.PN ---
Subjective - Date & Time of Evaluation Date of Evaluation: 12/21/16 Time of Evaluation: 12:25 - Subjective Subjective: Comfortable, no fevers. Objective - Vital Signs/Intake and Output Vital Signs (last 24 hours): Temp Pulse Resp BP Pulse Ox 97.8 F 67 20 147/72 92 L 12/21/16 08:49 12/21/16 08:49 12/21/16 08:49 12/21/16 08:49 12/21/16 08:49 Intake and Output: 12/21/16 12/21/16 06:59 18:59 Intake Total 1200 Output Total 2600 Balance -1400 - Medications Medications: Current Medications Atorvastatin Calcium (Lipitor) 80 mg PO HS [facility] Last Admin: 12/20/16 22:35 Dose: 80 mg Carvedilol (Coreg) 25 mg PO DAILY [facility] Last Admin: 12/20/16 10:41 Dose: 25 mg Furosemide (Lasix) 40 mg PO DAILY [facility] Last Admin: 12/20/16 10:41 Dose: 40 mg Doxycycline Hyclate 100 mg/ (Sodium Chloride) 100 mls @ 100 mls/hr IVPB Q12 [facility] PRN Reason: Protocol Last Admin: 12/20/16 22:35 Dose: 100 mls/hr Ampicillin Sodium/Sulbactam (Sodium 3 gm/ Sodium Chloride) 100 mls @ 200 mls/ hr IVPB Q6 [place] PRN Reason: Protocol Last Admin: 12/21/16 05:33 Dose: 200 mls/hr Insulin Detemir (Levemir) 50 unit SC HS [facility] Last Admin: 12/20/16 22:35 Dose: 25 unit Insulin Detemir (Levemir) 20 unit SC ACB [facility] Last Admin: 12/21/16 08:50 Dose: 20 unit Insulin Human Regular (Humulin R) 32 units SC ACL [facility] Last Admin: 12/20/16 12:18 Dose: 32 units Insulin Human Regular (Humulin R) 40 units SC ACD [facility] Last Admin: 12/20/16 17:00 Dose: 40 units Isosorbide Mononitrate (Imdur Er) 30 mg PO DAILY [facility] Last Admin: 12/20/16 10:42 Dose: 30 mg Pantoprazole Sodium (Protonix Ec Tab) 40 mg PO DAILY [facility] Last Admin: 12/20/16 10:42 Dose: 40 mg Silver Sulfadiazine (Silvadene 1% 25 Gm) 0 gm TP DAILY [facility] Spironolactone (Aldactone) 50 mg PO DAILY [facility] Last Admin: 12/20/16 10:52 Dose: 50 mg - Labs Labs: 12/21/16 06:30 12/21/16 06:30 - Constitutional Appears: Non-toxic, No Acute Distress - Head Exam Head Exam: NORMAL INSPECTION - ENT Exam ENT Exam: Mucous Membranes Moist - Neck Exam Neck Exam: absent: Meningismus - Respiratory Exam Respiratory Exam: Decreased Breath Sounds - Cardiovascular Exam Cardiovascular Exam: +S1, +S2 - GI/Abdominal Exam GI & Abdominal Exam: Soft. absent: Tenderness Assessment and Plan - Assessment and Plan (Free Text) Plan: Assessment Sepsis due to infected right hallux infected wound with associated probable osteomyelitis, now growing coagulase negative staph and gram negative bacilli HTN CAD S/P CABG S/P appendectomy S/P carpal tunnel release obesity with BMI 32 Plan continue Doxycycline and Unasyn day 3 pending identification and sensitivities of the bacteria in the wound; blood cx are negative follow up further plans of Podiatry will continue to monitor clinically
--- NOTE | 2016-12-21 16:20 | RAD ---
HISTORY: medical clearance COMPARISON: 08/29/2014 TECHNIQUE: Chest PA and lateral FINDINGS: LUNGS: No active pulmonary disease. PLEURA: No significant pleural effusion identified. No pneumothorax apparent. CARDIOVASCULAR: Cardiomegaly unchanged. Status post sternotomy. The 2 most cephalad sternotomy cerclage wires are discontinuous as above. OSSEOUS STRUCTURES: Sternotomy minimal mid thoracic spondylosis VISUALIZED UPPER ABDOMEN: Normal. OTHER FINDINGS: None. IMPRESSION: No active disease. No interval pathology noted
[2016-12-21] MEDS ORDERED: Gadodiamide 287 MG/ML VIAL (20ML) IV ONE (16:25)
--- NOTE | 2016-12-21 20:28 | MRI ---
EXAM: MR Right Lower Extremity Without and With Intravenous Contrast, Foot EXAM DATE/TIME: 12/21/2016 4:00 PM CLINICAL HISTORY: The patient age is 60 years old and is male; Condition or disease; Other: Non healing wound; Patient HX: ? Osteo big toe; Additional info: R/O osteomyelitis right hallux Facility exam id and description: Mri footwwort foot w/ w/o contrast right TECHNIQUE: Multiplanar magnetic resonance images of the right foot without and with intravenous contrast. CONTRAST: 20 mL of OMNISCAN administered intravenously. COMPARISON: DX - FOOT RIGHT 3 VIEWS ROUTINE 12/19/2016 11:05:08 AM FINDINGS: This study concentrates on the mid to forefoot. LIGAMENTS: Medial collateral: No visible acute tear. Lateral collateral: No visible acute tear. Lisfranc: No visualized acute tear. TENDONS: Flexor: No visualized acute tear. Extensor: No visualized acute tear. Muscles: Muscle edema is identified, suggestive of myositis. Fluid: There is a minimal first MTP joint fusion. Sinus tarsi: Edema and fluid are seen within the sinus tarsi. Plantar fascia: No visualized acute tear. The plantar fascia is incompletely visualized. Bones/joints: Minimal edema is identified involving the talar neck and calcaneus, which is nonspecific. Infection cannot be excluded. There is dorsal spurring at the talonavicular joint. Hypertrophic arthropathy is visualized involving the first MTP joint. Mild degenerative changes are noted at the calcaneocuboid joint. Cystic change is identified within the bone marrow adjacent to the first MTP joint, secondary to arthropathy. Soft tissues: There is soft tissue swelling of the visualized right foot, most significant dorsally, suggestive of cellulitis. Edema is identified within the distal first phalanx, consistent with osteomyelitis in the appropriate clinical setting. Foci of hypointensity are identified within the adjacent soft tissues, suggestive of gas. IMPRESSION: 1. There is soft tissue swelling of the visualized right foot, most significant dorsally, suggestive of cellulitis. 2. Edema is identified within the distal first phalanx, consistent with osteomyelitis in the appropriate clinical setting. Foci of hypointensity are identified within the adjacent soft tissues, suggestive of gas. 3. Minimal edema is identified involving the talar neck and calcaneus, which is nonspecific. Infection cannot be excluded. 4. Degenerative change/arthropathy is noted above. 5. Muscle edema is identified, suggestive of myositis. 6. Additional findings described above.
--- NOTE | 2016-12-21 23:03 | CARD ---
APPROVED REPORT EKG Measurement Heart [id number] <Conclusion> Sinus rhythm with 1st degree AV block Left axis deviation Septal infarct, age undetermined ST & T wave abnormality, consider lateral ischemia Abnormal ECG
[2016-12-22] MEDS: Ampicillin/Sulbactam 3 GM in Sodium Chloride 0.9% 100 ML IVPB SCH ×2 (00:02→05:35)
--- NOTE | 2016-12-22 06:59 | CP.PCM.PN ---
Subjective - Date & Time of Evaluation Date of Evaluation: 12/22/16 Time of Evaluation: 06:55 - Subjective Subjective: Pt has very poor veins,needs iv access. Objective - Vital Signs/Intake and Output Vital Signs (last 24 hours): Temp Pulse Resp BP Pulse Ox 98.3 F 69 18 151/86 H 92 L 12/21/16 16:00 12/21/16 16:00 12/21/16 16:00 12/21/16 16:00 12/21/16 16:00 Intake and Output: 12/21/16 12/22/16 18:59 06:59 Intake Total 420 1120 Output Total 700 900 Balance -280 220 - Medications Medications: Current Medications Atorvastatin Calcium (Lipitor) 80 mg PO HS [facility] Last Admin: 12/21/16 21:55 Dose: 80 mg Carvedilol (Coreg) 25 mg PO DAILY [facility] Last Admin: 12/21/16 10:42 Dose: 25 mg Furosemide (Lasix) 40 mg PO DAILY [facility] Last Admin: 12/21/16 10:42 Dose: 40 mg Doxycycline Hyclate 100 mg/ (Sodium Chloride) 100 mls @ 100 mls/hr IVPB Q12 [facility] PRN Reason: Protocol Last Admin: 12/21/16 21:55 Dose: 100 mls/hr Ampicillin Sodium/Sulbactam (Sodium 3 gm/ Sodium Chloride) 100 mls @ 200 mls/ hr IVPB Q6 [facility] PRN Reason: Protocol Last Admin: 12/22/16 05:35 Dose: 200 mls/hr Insulin Detemir (Levemir) 20 unit SC ACB [facility] Last Admin: 12/21/16 08:50 Dose: 20 unit Insulin Detemir (Levemir) 25 unit SC HS [facility] Last Admin: 12/21/16 21:55 Dose: 25 unit Insulin Human Regular (Humulin R) 32 units SC ACL [facility] Last Admin: 12/21/16 11:51 Dose: 32 units Insulin Human Regular (Humulin R) 40 units SC ACD [facility] Last Admin: 12/21/16 17:27 Dose: 40 units Isosorbide Mononitrate (Imdur Er) 30 mg PO DAILY [facility] Last Admin: 12/21/16 10:43 Dose: 30 mg Pantoprazole Sodium (Protonix Ec Tab) 40 mg PO DAILY [facility] Last Admin: 12/21/16 10:43 Dose: 40 mg Silver Sulfadiazine (Silvadene 1% 25 Gm) 0 gm TP DAILY [facility] Spironolactone (Aldactone) 50 mg PO DAILY [facility] Last Admin: 12/21/16 10:42 Dose: 50 mg - Labs Labs: 12/21/16 06:30 12/21/16 06:30 - Constitutional Appears: No Acute Distress Assessment and Plan - Assessment and Plan (Free Text) Assessment: Poor venous access Plan: Hep lock inserted in the R antecubital region. # 22 angiocath used.
[2016-12-22] MEDS: Insulin Detemir 100 units/ml Vial (Levemir) SC SCH ×2 (09:18→22:39)
[2016-12-22] MEDS ORDERED: Collagenase 250 Units/gm Ointment(30 gm) TOP SCH (10:00)
--- NOTE | 2016-12-22 10:02 | PN ---
DATE: 12/22/2016 SUBJECTIVE: He is comfortable in bed in no acute distress. Right foot pain is controlled with current medications. He had MRI done yesterday, which showed osteomyelitis of the distal phalanx. He is currently on IV antibiotics as per ID. REVIEW OF SYSTEMS: As per HPI. Rest of 12-point review of systems reviewed and negative. PHYSICAL EXAMINATION: GENERAL: Comfortable in bed in no acute distress. VITAL SIGNS: Temperature 98.7, heart rate 70 per minute, blood pressure 135/80, and respiratory rate 18 per minute. HEENT: Normal. Pallor positive. NECK: No lymphadenopathy. CHEST: Air entry present and equal bilaterally. No added sound. CARDIOVASCULAR: S1 and S2 normal. No murmur. No gallop. ABDOMEN: Soft and nontender. No hepatosplenomegaly. EXTREMITIES: No edema. Right foot in dressing. LABORATORY DATA: White count 12,000, hemoglobin 12.3, hematocrit 37.6, and platelet count is 71. Glucose 125 and A1c is 16.4. ASSESSMENT: 1. Osteomyelitis. 2. Uncontrolled diabetes mellitus. Hemoglobin A1c 16.4. 3. Hyponatremia. 4. Acute kidney injury. 5. Chronic anemia, multifactorial likely related to chronic disease and dyserythropoiesis. 6. Morbid obesity. 7. Coronary artery disease. 8. Status post bypass surgery. 9. Dyslipidemia. PLAN: Currently on antibiotic doxycycline as per ID. Also on Zosyn. Also on Augmentin. We will await ID recommendation based on MRI results of osteomyelitis. We will continue cardiac medication Coreg 25 mg daily. Continue Lasix 40 mg daily. Continue insulin and Imdur. We will do iron studies, B12, and folate. Cintia Randolph MD [facility]
[2016-12-22] MEDS: Pantoprazole 40 mg EC Tab PO SCH (10:12)
--- NOTE | 2016-12-22 11:19 | CON ---
For hyperbaric oxygen by Dr. Wesley, for clearance. HISTORY OF PRESENT ILLNESS: He is a 60-year-old man with a history of a blister forming on his right first toe about 2 weeks before he got to the emergency room, saw the field account manager. He was given Augmentin on the outpatient. Numbness began, he did not get better, came to the ER. PAST MEDICAL HISTORY: He has a past medical history of CAD, status post CABG with stents; diabetes; hypertension; sleep apnea. He has disorders of his hands. PAST SURGICAL HISTORY: He had a right mastectomy at age 14. He had an appendectomy, coronary stents x7; bypass, five-vessel; tonsillectomy. He had musculoskeletal surgery. SOCIAL HISTORY: Never smoked, drinks alcohol. No drugs. ALLERGIES: NO KNOWN DRUG ALLERGIES. MEDICATIONS: He is on insulin, spironolactone, Coreg, Crestor, Imdur, Lasix, Levemir, pantoprazole. REVIEW OF SYSTEMS: On review of systems, no acute vision or hearing changes. No shortness of breath. No cough. No chest pain. No palpitations. No abdominal pain, nausea, vomiting, constipation, diarrhea. No problems urinating. He has right first toe pain with an ulcer, this started to come up within the past 2 to 3 weeks. No sweating. No anxiety. No depression. PHYSICAL EXAMINATION: VITAL SIGNS: 98 temp; 76 pulse; 166/97, 151/86 blood pressure; 20 respiratory rate; 96% O2 sat on room air. GENERAL: He is alert and oriented x3. Pleasant, comfortable. No acute distress. His right foot is bandaged. HEENT: His head is atraumatic, normocephalic. Extraocular muscles are intact. Pupils equal and reactive to light. Throat is moist. NECK: Supple. Thyroid midline. No palpable or appreciable lymphadenopathy. HEART: Regular rate. Normal S1 and S2. LUNGS: Decreased breath sounds bilaterally, but clear to auscultation. ABDOMEN: Soft, nontender. Positive bowel sounds. Obese. No guarding. No rebound. No CVA tenderness. EXTREMITIES: Have no edema. Right first toe is bandaged, there is an ulcer there. Otherwise, his skin for the most part is intact. DIAGNOSTIC DATA: He had multiple tests. He has a 12 white count, 12.3 hemoglobin, 37.6 hematocrit with 271 platelets. The pH is 7.4, O2 is 88.5. Last blood sugar is 96. He has 141 sodium, potassium 4.4, BUN 31, creatinine 1.2, GFR is greater than 60, calcium is 9. Phosphorus 3.3. Magnesium 2. Total bilirubin is 0.3, AST is 28, ALT is 29, alk phos 90, total protein is 7.7, albumin is 3.8. He has had an x-ray of the foot and it showed findings that are concerning for osteomyelitis of the tip of the distal phalanx of the great toe, cellulitis and ulceration in the great toe is present. He had a chest x-ray, no active disease. He had an EKG, sinus rhythm with first-degree AV block, left axis deviation and septal infarct, age undetermined. I also checked his ears, his tympanic membranes were visualized with mild wax in the canals, they were okay. After evaluation, discussion, physical exam, reviewing his x-rays, EKG, labs, medications, he is medically optimized and cleared for hyperbaric oxygen and hopefully, he does well, for his right first toe osteomyelitis. Vel Puri DO
[2016-12-22] MEDS: cefTRIAXone 1 gm 1 GM/100 ML BAG IVPB SCH (11:39)
--- NOTE | 2016-12-22 12:39 | CP.PCM.PN ---
Subjective - Date & Time of Evaluation Date of Evaluation: 12/22/16 Time of Evaluation: 11:36 - Subjective Subjective: Podiatry Progress Note - Dr. Wesley 61 year old male patient PMHx DM, HTN, CAD seen for right hallux ulceration. Patient seen out of bed and walking in surgical shoe, AAOx3 and NAD. Patient denies any acute events overnight. Patient denies any pain to his right great toe. Patient denies N/V/F/D/C/SOB/calf pain. No other pedal complaints at this time. Objective - Vital Signs/Intake and Output Vital Signs (last 24 hours): Temp Pulse Resp BP Pulse Ox 98 F 76 20 166/97 H 96 12/22/16 08:25 12/22/16 10:15 12/22/16 08:25 12/22/16 10:15 12/22/16 08:25 Intake and Output: 12/22/16 12/22/16 06:59 18:59 Intake Total 1120 Output Total 900 Balance 220 - Medications Medications: Current Medications Atorvastatin Calcium (Lipitor) 80 mg PO HS [facility] Last Admin: 12/21/16 21:55 Dose: 80 mg Carvedilol (Coreg) 25 mg PO DAILY [facility] Last Admin: 12/22/16 10:15 Dose: 25 mg Collagenase (Santyl) 0 gm TOP DAILY [facility] Furosemide (Lasix) 40 mg PO DAILY [facility] Last Admin: 12/22/16 10:13 Dose: 40 mg Doxycycline Hyclate 100 mg/ (Sodium Chloride) 100 mls @ 100 mls/hr IVPB Q12 [facility] PRN Reason: Protocol Last Admin: 12/22/16 10:12 Dose: 100 mls/hr Ceftriaxone Sodium (Rocephin 1 Gram Ivpb) 1 gm in 100 mls @ 100 mls/hr IVPB DAILY [facility] PRN Reason: Protocol Last Admin: 12/22/16 11:39 Dose: 100 mls/hr Insulin Detemir (Levemir) 20 unit SC ACB [facility] Last Admin: 12/22/16 09:18 Dose: Not Given Insulin Detemir (Levemir) 25 unit SC HS [facility] Last Admin: 12/21/16 21:55 Dose: 25 unit Insulin Human Regular (Humulin R) 32 units SC ACL [facility] Last Admin: 12/21/16 11:51 Dose: 32 units Insulin Human Regular (Humulin R) 40 units SC ACD [facility] Last Admin: 12/21/16 17:27 Dose: 40 units Isosorbide Mononitrate (Imdur Er) 30 mg PO DAILY [facility] Last Admin: 12/22/16 10:14 Dose: 30 mg Pantoprazole Sodium (Protonix Ec Tab) 40 mg PO DAILY [facility] Last Admin: 12/22/16 10:12 Dose: 40 mg Silver Sulfadiazine (Silvadene 1% 25 Gm) 0 gm TP DAILY [facility] Spironolactone (Aldactone) 50 mg PO DAILY [facility] Last Admin: 12/22/16 10:15 Dose: 50 mg - Labs Labs: 12/21/16 06:30 12/21/16 06:30 - Constitutional Appears: Well, Non-toxic, No Acute Distress - Extremities Exam Additional comments: VASC: DP pulse palpable 2/4 b/l. PT pulse weakly palpable 1/4 b/l. CFT <3 seconds to digits x10. TG warm to warm b/l. Non-pitting edema noted to bilateral LE. Increase in warmth to right hallux. NEURO: Gross sensation absent bilaterally. DERM: Ulceration noted to plantar aspect of right hallux measuring approximately 1.5 x 1.3 x 0.3cm - ulcer is noted to have a mixed fibrogranular base with hyperkeratotic rim and malodor. No drainage or purulence noted. (-) probe to bone. Previous serous blister noted to distal tuft of right hallux - deroofed during yesterday's visit - appears to have a mixed necrotic and granular base, and communicates with plantar hallux ulceration. Erythema noted to right hallux extending proximally to the 1st MPJ. Superficial ulceration noted to plantar aspect of left hallux measuring approximately 0.3 x 0.2 x 0.1 cm with granular base - no drainage, purulence, fluctuance, malodor noted to left ulceration. (-)probe to bone ORTHO: No pain on palpation noted to right hallux plantar ulceration. - Neurological Exam Neurological Exam: Alert, Awake, Oriented x3 - Psychiatric Exam Psychiatric exam: Normal Affect, Normal Mood Assessment and Plan - Assessment and Plan (Free Text) Assessment: 60 year old male PMHx DM, HTN with right hallux ulceration, cellulitis, and probable distal phalanx osteomyelitis Plan: Patient seen and evaluated at bedside with attending, Dr. Wesley Chart, vitals, labs reviewed = afebrile Silvadene applied to right hallux and dressed with optifoam - Santyl ordered for area of necrotic tissue. Begin tomorrow Santyl + Optifoam dressing changes to right hallux RLE MRI reviewed: - Soft tissue swelling dorsally, suggetive of cellulitis - Edema within distal 1st phalanx consistent with osteomyelitis. Foci of hypointensity identified within adjacent of soft itssue Per ID, continue Doxycycline and Unasyn day 4 pending wound cx - recs are appreciated Right hallux wound culture final report reviewed; morg morganii and coagulase neg staph Per Dr. Puri, patient is medically optimized and cleared for hyperbaric oxygen therapy HBO therapy ordered, patient to receive daily treatments while in house starting today Patient to receive PICC s/p HBO therapy Awaiting physical therapy consultation for forefoot wedge shoe and ambulation training Podiatry will continue to follow patient while in house
[2016-12-22] MEDS: Insulin Regular 1 UNITS/0.01 ML ML SC SCH ×2 (13:44→17:59)
--- NOTE | 2016-12-22 13:45 | CP.PCM.PN ---
Subjective - Date & Time of Evaluation Date of Evaluation: 12/22/16 Time of Evaluation: 12:15 - Subjective Subjective: Comfortable, afebrile, not in distress. Objective - Vital Signs/Intake and Output Vital Signs (last 24 hours): Temp Pulse Resp BP Pulse Ox 98 F 76 20 166/97 H 96 12/22/16 08:25 12/22/16 10:15 12/22/16 08:25 12/22/16 10:15 12/22/16 08:25 Intake and Output: 12/22/16 12/22/16 06:59 18:59 Intake Total 1120 Output Total 900 Balance 220 - Medications Medications: Current Medications Atorvastatin Calcium (Lipitor) 80 mg PO HS [facility] Last Admin: 12/21/16 21:55 Dose: 80 mg Carvedilol (Coreg) 25 mg PO DAILY [facility] Last Admin: 12/22/16 10:15 Dose: 25 mg Collagenase (Santyl) 0 gm TOP DAILY [facility] Furosemide (Lasix) 40 mg PO DAILY [facility] Last Admin: 12/22/16 10:13 Dose: 40 mg Doxycycline Hyclate 100 mg/ (Sodium Chloride) 100 mls @ 100 mls/hr IVPB Q12 [facility] PRN Reason: Protocol Last Admin: 12/22/16 10:12 Dose: 100 mls/hr Ceftriaxone Sodium (Rocephin 1 Gram Ivpb) 1 gm in 100 mls @ 100 mls/hr IVPB DAILY [facility] PRN Reason: Protocol Insulin Detemir (Levemir) 20 unit SC ACB [facility] Last Admin: 12/22/16 09:18 Dose: Not Given Insulin Detemir (Levemir) 25 unit SC HS [facility] Last Admin: 12/21/16 21:55 Dose: 25 unit Insulin Human Regular (Humulin R) 32 units SC ACL [facility] Last Admin: 12/21/16 11:51 Dose: 32 units Insulin Human Regular (Humulin R) 40 units SC ACD [facility] Last Admin: 12/21/16 17:27 Dose: 40 units Isosorbide Mononitrate (Imdur Er) 30 mg PO DAILY [facility] Last Admin: 12/22/16 10:14 Dose: 30 mg Pantoprazole Sodium (Protonix Ec Tab) 40 mg PO DAILY [facility] Last Admin: 12/22/16 10:12 Dose: 40 mg Silver Sulfadiazine (Silvadene 1% 25 Gm) 0 gm TP DAILY [facility] Spironolactone (Aldactone) 50 mg PO DAILY [facility] Last Admin: 12/22/16 10:15 Dose: 50 mg - Labs Labs: 12/21/16 06:30 12/21/16 06:30 - Constitutional Appears: Non-toxic, No Acute Distress - Head Exam Head Exam: NORMAL INSPECTION - Respiratory Exam Respiratory Exam: Decreased Breath Sounds - Cardiovascular Exam Cardiovascular Exam: +S1, +S2 - GI/Abdominal Exam GI & Abdominal Exam: Soft. absent: Tenderness - Extremities Exam Additional comments: right foot with dressings in place Assessment and Plan - Assessment and Plan (Free Text) Plan: Assessment Sepsis due to infected right hallux infected wound with associated probable osteomyelitis, now growing coagulase negative staph and Morganella HTN CAD S/P CABG S/P appendectomy S/P carpal tunnel release obesity with BMI 32 Plan continue Doxycycline and changed Unasyn to Rocephin day 4; blood cx are negative ; Coagulase negative staph in the wound is probably a contaminant - will need at least 4-6 weeks of antibiotics for osteomyelitis, with weekly ESR, CRP, CBC, CMP - reviewed MRI of the foot showing osteomyelitis of the distal phalanx of the 1st toe on the right follow up further plans of Podiatry will continue to monitor clinically
[2016-12-22 21:34] VITALS: O2SAT 95
[2016-12-23] MEDS: Insulin Detemir 100 units/ml Vial (Levemir) SC SCH (08:43)
[2016-12-23 08:48] VITALS: RESP 18; TEMP 98
[2016-12-23] MEDS: cefTRIAXone 1 gm 1 GM/100 ML BAG IVPB SCH (10:28)
[2016-12-23 10:32] VITALS: BP 175/101; PULSE 90
[2016-12-23] MEDS: Pantoprazole 40 mg EC Tab PO SCH (10:32)
[2016-12-23] MEDS: Insulin Regular 1 UNITS/0.01 ML ML SC SCH (12:36)
--- NOTE | 2016-12-23 13:37 | CP.PCM.PN ---
Subjective - Date & Time of Evaluation Date of Evaluation: 12/23/16 Time of Evaluation: 12:30 - Subjective Subjective: Comfortable in bed, less pain in the right foot, no fevers overnight. Objective - Vital Signs/Intake and Output Vital Signs (last 24 hours): Temp Pulse Resp BP Pulse Ox 98.0 F 83 18 145/85 95 12/23/16 08:00 12/23/16 08:00 12/23/16 08:00 12/23/16 08:00 12/23/16 08:00 Intake and Output: 12/23/16 12/23/16 06:59 18:59 Intake Total 240 Output Total 650 Balance -410 - Medications Medications: Current Medications Atorvastatin Calcium (Lipitor) 80 mg PO HS [facility] Last Admin: 12/22/16 22:27 Dose: 80 mg Carvedilol (Coreg) 25 mg PO DAILY [facility] Last Admin: 12/22/16 10:15 Dose: 25 mg Collagenase (Santyl) 0 gm TOP DAILY [facility] Furosemide (Lasix) 40 mg PO DAILY [facility] Last Admin: 12/22/16 10:13 Dose: 40 mg Doxycycline Hyclate 100 mg/ (Sodium Chloride) 100 mls @ 100 mls/hr IVPB Q12 [facility] PRN Reason: Protocol Last Admin: 12/22/16 22:28 Dose: 100 mls/hr Ceftriaxone Sodium (Rocephin 1 Gram Ivpb) 1 gm in 100 mls @ 100 mls/hr IVPB DAILY [facility] PRN Reason: Protocol Last Admin: 12/22/16 11:39 Dose: 100 mls/hr Insulin Detemir (Levemir) 20 unit SC ACB [facility] Last Admin: 12/23/16 08:43 Dose: Not Given Insulin Detemir (Levemir) 25 unit SC HS [facility] Last Admin: 12/22/16 22:39 Dose: Not Given Insulin Human Regular (Humulin R) 32 units SC ACL [facility] Last Admin: 12/22/16 13:44 Dose: Not Given Insulin Human Regular (Humulin R) 40 units SC ACD [facility] Last Admin: 12/22/16 17:59 Dose: 40 units Isosorbide Mononitrate (Imdur Er) 30 mg PO DAILY [facility] Last Admin: 12/22/16 10:14 Dose: 30 mg Lorazepam (Ativan) 1 mg PO Q6 PRN; Protocol PRN Reason: Anxiety Last Admin: 12/23/16 07:30 Dose: 1 mg Pantoprazole Sodium (Protonix Ec Tab) 40 mg PO DAILY [facility] Last Admin: 12/22/16 10:12 Dose: 40 mg Silver Sulfadiazine (Silvadene 1% 25 Gm) 0 gm TP DAILY [facility] Spironolactone (Aldactone) 50 mg PO DAILY [facility] Last Admin: 12/22/16 10:15 Dose: 50 mg - Labs Labs: 12/21/16 06:30 12/21/16 06:30 - Constitutional Appears: Non-toxic, No Acute Distress - Head Exam Head Exam: NORMAL INSPECTION - ENT Exam ENT Exam: Mucous Membranes Moist - Neck Exam Neck Exam: absent: Lymphadenopathy, Meningismus - Respiratory Exam Respiratory Exam: Decreased Breath Sounds - Cardiovascular Exam Cardiovascular Exam: +S1, +S2 - GI/Abdominal Exam GI & Abdominal Exam: Soft. absent: Tenderness - Extremities Exam Additional comments: right foot with dressings in place Assessment and Plan - Assessment and Plan (Free Text) Plan: Assessment Sepsis due to infected right hallux infected wound with associated probable osteomyelitis, now growing coagulase negative staph (probably a contaminant ) and Morganella HTN CAD S/P CABG S/P appendectomy S/P carpal tunnel release obesity with BMI 32 Plan continue Rocephin day 5; blood cx are negative; Coagulase negative staph in the wound is probably a contaminant - will need at least 4-6 weeks of antibiotics for osteomyelitis, with weekly ESR, CRP, CBC, CMP - reviewed MRI of the foot showing osteomyelitis of the distal phalanx of the 1st toe on the right patient to follow up with Podiatry as an outpatient
--- NOTE | 2016-12-23 14:56 | CP.PCM.PN ---
<Brock Galvez - Last Filed: 12/23/16 14:52> Subjective - Date & Time of Evaluation Date of Evaluation: 12/23/16 Time of Evaluation: 14:52 - Subjective Subjective: Podiatry Progress Note - Dr. Carrero 61 year old male patient PMHx DM, HTN, CAD seen at bedside for right hallux ulceration. Patient seen resting comfortably, AAOx3 and NAD. Patient denies any acute events overnight. Patient denies any pain to his right great toe. Patient states she has been undergoing HBO therapy without any issues. Patient denies N/ V/F/D/C/SOB/calf pain. No other pedal complaints at this time. Objective - Vital Signs/Intake and Output Vital Signs (last 24 hours): Temp Pulse Resp BP Pulse Ox 98.0 F 90 18 175/101 H 95 12/23/16 08:00 12/23/16 10:29 12/23/16 08:00 12/23/16 10:30 12/23/16 08:00 Intake and Output: 12/23/16 12/23/16 06:59 18:59 Intake Total 240 Output Total 650 Balance -410 - Medications Medications: Current Medications Atorvastatin Calcium (Lipitor) 80 mg PO HS [facility] Last Admin: 12/22/16 22:27 Dose: 80 mg Carvedilol (Coreg) 25 mg PO DAILY [facility] Last Admin: 12/23/16 10:29 Dose: 25 mg Collagenase (Santyl) 0 gm TOP [facility] Last Admin: 12/23/16 13:59 Dose: Not Given Furosemide (Lasix) 40 mg PO DAILY [facility] Last Admin: 12/23/16 10:30 Dose: 40 mg Ceftriaxone Sodium (Rocephin 1 Gram Ivpb) 1 gm in 100 mls @ 100 mls/hr IVPB [facility] PRN Reason: Protocol Last Admin: 12/23/16 10:28 Dose: 100 mls/hr Insulin Detemir (Levemir) 20 unit SC ACB [facility] Last Admin: 12/23/16 08:43 Dose: Not Given Insulin Detemir (Levemir) 25 unit SC HS [facility] Last Admin: 12/22/16 22:39 Dose: Not Given Insulin Human Regular (Humulin R) 32 units SC ACL [facility] Last Admin: 12/23/16 12:36 Dose: 32 units Insulin Human Regular (Humulin R) 40 units SC ACD [facility] Last Admin: 12/22/16 17:59 Dose: 40 units Isosorbide Mononitrate (Imdur Er) 30 mg PO DAILY [facility] Last Admin: 12/23/16 10:29 Dose: 30 mg Lorazepam (Ativan) 1 mg PO Q6 PRN; Protocol PRN Reason: Anxiety Last Admin: 12/23/16 07:30 Dose: 1 mg Pantoprazole Sodium (Protonix Ec Tab) 40 mg PO [facility]ILY [facility] Last Admin: 12/23/16 10:32 Dose: 40 mg Silver Sulfadiazine (Silvadene 1% 25 Gm) 0 gm TP [facility] Spironolactone (Aldactone) 50 mg PO DAILY [facility] Last Admin: 12/23/16 11:24 Dose: 50 mg - Labs Labs: 12/21/16 06:30 12/21/16 06:30 - Constitutional Appears: Well, Non-toxic, No Acute Distress - Extremities Exam Additional comments: VASC: DP pulse palpable 2/4 b/l. PT pulse weakly palpable 1/4 b/l. CFT <3 seconds to digits x10. TG warm to warm b/l. Non-pitting edema noted to bilateral LE. Increase in warmth to right hallux. NEURO: Gross sensation absent bilaterally. DERM: Ulceration noted to plantar aspect of right hallux measuring approximately 1.5 x 1.3 x 0.3cm - ulcer is noted to have a mixed fibrogranular base with hyperkeratotic rim and malodor. No drainage or purulence noted. (-) probe to bone. Previous serous blister noted to distal tuft of right hallux appears to have a mixed necrotic and granular base, and communicates with plantar hallux ulceration. Erythema noted to right hallux extending proximally to the 1st MPJ. Superficial ulceration noted to plantar aspect of left hallux measuring approximately 0.3 x 0.2 x 0.1 cm with granular base - no drainage, purulence, fluctuance, malodor noted to left ulceration. (-)probe to bone ORTHO: No pain on palpation noted to right hallux plantar ulceration. - Neurological Exam Neurological Exam: Alert, Awake, Oriented x3 - Psychiatric Exam Psychiatric exam: Normal Affect, Normal Mood Assessment and Plan - Assessment and Plan (Free Text) Assessment: 60 year old male PMHx DM, HTN with right hallux ulceration, cellulitis, and probable distal phalanx osteomyelitis Plan: Patient seen and evaluated at bedside Discussed with attending, Dr. Carrero Chart, vitals, labs reviewed = afebrile Santyl applied to right hallux and dressed with optifoam Per ID, continue Rocephin day 5; will need at least 4-6 weeks of abx for osteomyelitis Continue HBO therapy while in house Patient to receive PICC s/p HBO therapy Awaiting physical therapy consultation for forefoot wedge shoe and ambulation training Podiatry will continue to follow patient while in house <Sonido Carrero - Last Filed: 12/24/16 08:22> Objective - Vital Signs/Intake and Output Vital Signs (last 24 hours): Temp Pulse Resp BP Pulse Ox 98.0 F 90 18 175/101 H 95 12/23/16 08:00 12/23/16 10:29 12/23/16 08:00 12/23/16 10:30 12/23/16 08:00 - Medications Medications: Current Medications Atorvastatin Calcium (Lipitor) 80 mg PO HS [facility] Last Admin: 12/22/16 22:27 Dose: 80 mg Carvedilol (Coreg) 25 mg PO DAILY [facility] Last Admin: 12/23/16 10:29 Dose: 25 mg Collagenase (Santyl) 0 gm TOP [facility] Last Admin: 12/23/16 13:59 Dose: Not Given Furosemide (Lasix) 40 mg PO [facility]ILY [facility] Last Admin: 12/23/16 10:30 Dose: 40 mg Ceftriaxone Sodium (Rocephin 1 Gram Ivpb) 1 gm in 100 mls @ 100 mls/hr IVPB [facility] PRN Reason: Protocol Last Admin: 12/23/16 10:28 Dose: 100 mls/hr Insulin Detemir (Levemir) 20 unit SC ACB [facility] Last Admin: 12/23/16 08:43 Dose: Not Given Insulin Detemir (Levemir) 25 unit SC HS [facility] Last Admin: 12/22/16 22:39 Dose: Not Given Insulin Human Regular (Humulin R) 32 units SC ACL [facility] Last Admin: 12/23/16 12:36 Dose: 32 units Insulin Human Regular (Humulin R) 40 units SC ACD [facility] Last Admin: 12/22/16 17:59 Dose: 40 units Isosorbide Mononitrate (Imdur Er) 30 mg PO DAILY [facility] Last Admin: 12/23/16 10:29 Dose: 30 mg Lorazepam (Ativan) 1 mg PO Q6 PRN; Protocol PRN Reason: Anxiety Last Admin: 12/23/16 07:30 Dose: 1 mg Pantoprazole Sodium (Protonix Ec Tab) 40 mg PO [facility]ILY [facility] Last Admin: 12/23/16 10:32 Dose: 40 mg Silver Sulfadiazine (Silvadene 1% 25 Gm) 0 gm TP [facility] Spironolactone (Aldactone) 50 mg PO DAILY [facility] Last Admin: 12/23/16 11:24 Dose: 50 mg - Labs Labs: 12/21/16 06:30 12/21/16 06:30 Attending/Attestation - Attestation I have personally seen and examined this patient.: Yes I have fully participated in the care of the patient.: Yes I have reviewed all pertinent clinical information, including history, physical exam and plan: Yes
--- NOTE | 2016-12-24 23:24 | CP.PCM.DIS ---
Provider - Provider Date of Admission: 12/19/16 12:27 Attending physician: Zain Cam MD Primary care physician: Roberto Hung MD Time Spent in preparation of Discharge (in minutes): 60 Hospital Course - Lab Results Lab Results: Micro Results 12/19/16 23:08 Toe Gram Stain - Final 12/19/16 23:08 Toe Wound Culture - Final Morg Morganii Ss Morganii Coagulase Neg Staphylococcus Most Recent Lab Values WBC 12.0 10^3/ul (4.5-11.0) H 12/21/16 06:30 RBC 4.21 10^6/uL (3.5-6.1) 12/21/16 06:30 Hgb 12.3 g/dL (14.0-18.0) L 12/21/16 06:30 Hct 37.6 % (42.0-52.0) L 12/21/16 06:30 MCV 89.3 fl (80.0-105.0) 12/21/16 06:30 MCH 29.2 pg (25.0-35.0) 12/21/16 06:30 MCHC 32.7 g/dl (31.0-37.0) 12/21/16 06:30 RDW 12.6 % (11.5-14.5) 12/21/16 06:30 Plt Count 271 10^3/uL (120.0-450.0) 12/21/16 06:30 MPV 9.5 fl (7.0-11.0) 12/21/16 06:30 Gran % 74.8 % (50.0-68.0) H 12/19/16 10:55 Lymph % (Auto) 17.1 % (22.0-35.0) L 12/19/16 10:55 [place] % (Auto) 6.3 % (1.0-6.0) H 12/19/16 10:55 Eos % (Auto) 1.4 % (1.5-5.0) L 12/19/16 10:55 Baso % (Auto) 0.4 % (0.0-3.0) 12/19/16 10:55 Gran # 8.85 (1.4-6.5) H 12/19/16 10:55 Lymph # 2.0 (1.2-3.4) 12/19/16 10:55 [place] # 0.8 (0.1-0.6) H 12/19/16 10:55 Eos # 0.2 (0.0-0.7) 12/19/16 10:55 Baso # 0.05 K/mm3 (0.0-2.0) 12/19/16 10:55 ESR 110 mm/hr (0.00-15.0) H 12/19/16 12:23 pO2 44 mm/Hg (30-55) 12/19/16 21:43 VBG pH 7.41 (7.32-7.43) 12/19/16 21:43 VBG pCO2 42.0 (40-60) 12/19/16 21:43 VBG HCO3 26.6 mmol/l (21-28) 12/19/16 21:43 VBG Total CO2 27.9 mmol.L (22-28) 12/19/16 21:43 VBG O2 Sat (Calc) 88.5 % (40-65) H 12/19/16 21:43 VBG Base Excess 1.7 mmol/L (0.0-2.0) 12/19/16 21:43 VBG Potassium 4.3 mmol/L (3.6-5.2) 12/19/16 21:43 Sodium 133.0 mmol/L (132-148) 12/19/16 21:43 Chloride 102.0 mmol/L (98-107) 12/19/16 21:43 Glucose 379 mg/dl (75-110) H 12/19/16 21:43 Lactate 0.8 mmol/L (0.7-2.1) 12/19/16 21:43 FiO2 21.0 % 12/19/16 21:43 Sodium 141 mmol/L (132-148) 12/21/16 06:30 Potassium 4.4 mmol/L (3.6-5.0) 12/21/16 06:30 Chloride 104 mmol/L (98-107) 12/21/16 06:30 Carbon Dioxide 26 mmol/L (21-33) 12/21/16 06:30 Anion Gap 15 (10-20) 12/21/16 06:30 BUN 31 mg/dL (7-21) H 12/21/16 06:30 Creatinine 1.2 mg/dL (0.5-1.4) 12/21/16 06:30 Est GFR ( Amer) > 60 12/21/16 06:30 Est GFR (Non-Af Amer) > 60 12/21/16 06:30 POC Glucose (mg/dL) 316 mg/dL (65-110) H 12/23/16 11:44 Random Glucose 187 mg/dL (70-110) H 12/21/16 06:30 Hemoglobin A1c 16.4 % (4.2-6.5) H 12/21/16 12:19 Calcium 9.0 mg/dL (8.4-10.5) 12/21/16 06:30 Phosphorus 3.3 mg/dL (2.5-4.5) 12/21/16 06:30 Magnesium 2.0 mg/dL (1.7-2.2) 12/21/16 06:30 Total Bilirubin 0.3 mg/dL (0.2-1.3) 12/21/16 06:30 AST 28 U/L (17-59) 12/21/16 06:30 ALT 20 U/L (7-56) 12/21/16 06:30 Alkaline Phosphatase 90 U/L (38-126) 12/21/16 06:30 Total Protein 7.7 g/dL (5.8-8.3) 12/21/16 06:30 Albumin 3.8 g/dL (3.0-4.8) 12/21/16 06:30 Globulin 3.9 gm/dL 12/21/16 06:30 Albumin/Globulin Ratio 1.0 (1.1-1.8) L 12/21/16 06:30 Venous Blood Potassium 4.3 mmol/L (3.6-5.2) 12/19/16 21:43 - Hospital Course Hospital Course: DATE: 12/23/2016 1. Osteomyelitis, right toe. 2. Uncontrolled diabetes mellitus. Hemoglobin A1c 16.4. 3. Hyponatremia. 4. Acute kidney injury. 5. Chronic anemia, multifactorial likely related to chronic disease and dyserythropoiesis. 6. Morbid obesity. 7. Coronary artery disease. 8. Status post bypass surgery. 9. Dyslipidemia. HOSPITAL COURSE : admitted with pain right toe. Right foot pain is controlled with current medications. MRI showed osteomyelitis of the distal phalanx. treated with IV antibiotics. DM II uncontrolled. PICC line placed. REVIEW OF SYSTEMS: As per HPI. Rest of 12-point review of systems reviewed and negative. PHYSICAL EXAMINATION: GENERAL: Comfortable in bed in no acute distress. VITAL SIGNS: Temperature 98.7, heart rate 70 per minute, blood pressure 135/80, and respiratory rate 18 per minute. HEENT: Normal. Pallor positive. NECK: No lymphadenopathy. CHEST: Air entry present and equal bilaterally. No added sound. CARDIOVASCULAR: S1 and S2 normal. No murmur. No gallop. ABDOMEN: Soft and nontender. No hepatosplenomegaly. EXTREMITIES: No edema. Right foot in dressing. LABORATORY DATA: White count 12,000, hemoglobin 12.3, hematocrit 37.6, and platelet count is 71. Glucose 125 and A1c is 16.4. PLAN: ceftrioxone 1 gm daily in oncology infusion room for 4 weeks as per ID. continue home meds. condition on discharge : stable. Dispo : discharge home. FU : Dr. Cam in 1 week. - Date & Time of H&P Date of H&P: 12/23/16 Time of H&P: 15:00 Discharge Exam - Head Exam Head Exam: NORMAL INSPECTION Discharge Plan - Follow Up Plan Condition: FAIR Disposition: HOME/ ROUTINE Instructions: Pneumococcal Vaccine for Adults (GEN), How to Check Your Blood Sugar (GEN), Peripherally Inserted Central Catheters and Midline Catheters (GEN) , Basic Carbohydrate Counting (DC), Acute Wound Care (DC), Fall Prevention (DC) Additional Instructions: Instructed to follow up with DR. Wesley in wound care center on Monday. Instructed to call the doctor if your symptom worsen . If you notive any redness or swelling in foot or pain not relieve.
== END 2016-12-23 15:30 | disposition home or self-care (01) | DRG 872 ==
LOC: ED 10:06 → ERH 12:27 → 5RSO 13:36
PROVIDERS: ADMIT Internal Medicine Nephrology; ATTEND Internal Medicine Nephrology
DX: A41.9 Sepsis, unspecified organism (principal); N17.9 Acute kidney failure, unspecified; M86.8X7 Other osteomyelitis, ankle and foot; E11.69 Type 2 diabetes mellitus with other specified complication; E87.1 Hypo-osmolality and hyponatremia; E11.621 Type 2 diabetes mellitus with foot ulcer; L97.519 Non-pressure chronic ulcer of other part of right foot with unspecified severity; E11.65 Type 2 diabetes mellitus with hyperglycemia; D63.8 Anemia in other chronic diseases classified elsewhere; L03.031 Cellulitis of right toe; I25.10 Atherosclerotic heart disease of native coronary artery without angina pectoris; I10 Essential (primary) hypertension; E87.5 Hyperkalemia; E78.5 Hyperlipidemia, unspecified; E66.01 Morbid (severe) obesity due to excess calories; Z68.32 Body mass index [BMI] 32.0-32.9, adult; Z79.4 Long term (current) use of insulin; Z87.891 Personal history of nicotine dependence; Z95.5 Presence of coronary angioplasty implant and graft; Z95.1 Presence of aortocoronary bypass graft

== ENCOUNTER 2017-01-18 06:59 | Day surgery (SDC) | payer OTHER ==
[2017-01-18 08:32] VITALS: BMI 32.2
[2017-01-18] MEDS ORDERED: Propofol 10 mg/ml Inj (20 ML) ONE (09:25)
[2017-01-18] MEDS ORDERED: Midazolam 2 MG/2 ML VIAL ONE (09:25)
[2017-01-18] MEDS ORDERED: Lactated Ringer's 1,000 ML IV SCH (10:45)
[2017-01-18 10:52] VITALS: TEMP 97.7
[2017-01-18 11:51] VITALS: RESP 20
[2017-01-18 14:51] VITALS: BP 164/74; PULSE 60; O2SAT 95
--- NOTE | 2017-01-18 17:58 | OP ---
PROCEDURE DATE: 01/18/2017 PREOPERATIVE DIAGNOSIS: Otitis media with effusion. POSTOPERATIVE DIAGNOSIS: Otitis media with effusion. PROCEDURE: Bilateral tympanostomy with insertion of Kennedy Grommet tubes. SURGEON: Jeff Chong DO. TYPE OF ANESTHESIA: General via LMA. ESTIMATED BLOOD LOSS: Minimal. OPERATIVE PROCEDURE: This is a 61-year-old white male who is undergoing hyperbaric treatments and developed otitis media with effusion bilaterally and could not tolerate further treatments. The patient was taken to the operating room, prepped in routine fashion, underwent anesthesia via LMA intubation. The patient's right external auditory canal was examined with the use of the operating microscope and cerumen was debrided from the ear canal. Myringotomy incision was made in the anteroinferior quadrant in radial fashion. Kennedy Grommet ventilation tube was inserted through followed by Ciprodex drops. The same procedure was then carried out on the contralateral side with small hemostasis controlled with use of topical adrenaline. The patient tolerated the procedure well, was taken from the operating room to the recovery room in stable condition. Jeff Chong DO
== END 2017-01-18 15:00 | disposition home or self-care (01) ==
LOC: SDS 06:59
PROVIDERS: ATTEND Otolaryngology
DX: H65.493 Other chronic nonsuppurative otitis media, bilateral (principal); I25.10 Atherosclerotic heart disease of native coronary artery without angina pectoris; I10 Essential (primary) hypertension; I25.2 Old myocardial infarction
CPT/HCPCS: 69436; 82948; J0171; J1885; J2250; J2405; J2704; J3010; J7120 ×2

== ENCOUNTER 2017-05-19 04:15 | Inpatient (IN) | payer OTHER ==
[2017-05-19 04:16] VITALS: BMI 32.1
--- NOTE | 2017-05-19 04:28 | ED PDOC ---
Arrival/HPI - General Time Seen by Provider: 05/19/17 04:25 Historian: Patient - History of Present Illness Narrative History of Present Illness (Text): 05/19/17 04:25 A 61 year old male, whose past medical history includes CAD s/p CABG and stents , DM, HTN, presents to the emergency department s/p a fall obtaining a laceration to his left eye. The patient states that he was walking his dog this morning when he began to feel weak and fell. The patient denies fevers, chills, LOC, headache, chest pain, shortness of breath, dyspnea on exertion, cough, abdominal pain, nausea, vomiting, diarrhea, back pain, neck pain, urinary/bowel changes, or any other complaint. PMD: Dr. Cam Time/Duration: Prior to Arrival Symptom Onset: Sudden Symptom Course: Unchanged Activities at Onset: Rest, Light Context: Walking Past Medical History - Provider Review Nursing Documentation Reviewed: Yes - Infectious Disease Hx of Infectious Diseases: None - Tetanus Immunization Tetanus Immunization: Up to Date - Cardiac Hx Pacemaker: No - Pulmonary Hx Respiratory Disorders: Yes Hx Sleep Apnea: Yes - Neurological Hx Paralysis: No - HEENT Hx HEENT Disorder: No - Renal Hx Renal Disorder: No - Endocrine/Metabolic Hx Diabetes Mellitus Type 2: Yes - Hematological/Oncological Hx Blood Transfusions: No (UNKNOWN- ) Hx Blood Transfusion Reaction: No - Integumentary Hx Dermatological Disorder: No - Musculoskeletal/Rheumatological Hx Musculoskeletal Disorders: Yes (HAND) - Gastrointestinal Hx Gastrointestinal Disorders: No - Genitourinary/Gynecological Other/Comment: R mastectomy at age14 - Psychiatric Hx Emotional Abuse: No Hx Physical Abuse: No Hx Substance Use: No (DENIED PASR ABUSE) - Surgical History Hx Appendectomy: Yes Hx Coronary Stent: Yes (x7) Hx Musculoskeletal Surgery: Yes Hx Open Heart Surgery: Yes (Bypass x 5) Hx Tonsillectomy: Yes Other/Comment: Heart Stents x 7 - Anesthesia Hx Anesthesia Reactions: No Hx Malignant Hyperthermia: No - Suicidal Assessment Feels Threatened In Home Enviroment: No Family/Social History - Physician Review Nursing Documentation Reviewed: Yes Family/Social History: No Known Family HX Smoking Status: Never Smoked Hx Alcohol Use: No (DENIES) Hx Substance Use: No (DENIED PASR ABUSE) Hx Substance Use Treatment: No Allergies/Home Meds Allergies/Adverse Reactions: Allergies No Known Allergies Allergy (Verified 05/19/17 13:34) Home Medications: Home Meds Medication Instructions Recorded Confirmed Carvedilol [Coreg] 25 mg PO DAILY 12/19/16 05/19/17 Furosemide [Lasix] 40 mg PO DAILY 12/19/16 05/19/17 Insulin Aspart, Recombinant 16 unit SC ACBL 12/19/16 05/19/17 [Novolog] Insulin Detemir [Levemir] 25 unit SC HS 12/19/16 05/19/17 Isosorbide Mononitrate ER [Imdur 30 mg PO DAILY 12/19/16 05/19/17 ER] Rosuvastatin Calcium [Crestor] 20 mg PO DAILY 12/19/16 05/19/17 Aspirin [Ecotrin] 81 mg PO DAILY 01/16/17 05/19/17 ALPRAZolam [Xanax] 0.25 mg PO DAILY 02/03/17 05/19/17 Review of Systems - Physician Review All systems were reviewed & negative as marked: Yes - Review of Systems Constitutional: absent: Fevers, Night Sweats Respiratory: absent: SOB, Cough Cardiovascular: absent: Chest Pain, VAZ Gastrointestinal: absent: Abdominal Pain, Diarrhea, Nausea, Vomiting Genitourinary Male: absent: Urinary Output Changes Musculoskeletal: absent: Back Pain, Neck Pain Skin: Laceration (Laceration above left eye.) Neurological: Other (Generalized weakness.). absent: Headache Physical Exam Vital Signs Reviewed: Yes Vital Signs Temp Pulse Resp BP Pulse Ox 05/19/17 08:07 98.1 F 88 18 148/86 96 05/19/17 06:59 98.2 F 88 16 186/90 H 95 05/19/17 06:43 83 179/108 H 05/19/17 06:16 98.5 F 94 H 16 199/84 H 94 L 05/19/17 04:36 98.1 F 90 18 143/81 90 L Appearance: Positive for: Well-Appearing, Non-Toxic, Comfortable Pain Distress: None Mental Status: Positive for: Alert and Oriented X 3 - Systems Exam Head: Present: Normocephalic, Laceration (Laceratio over the let eye. ) Pupils: Present: PERRL Extroacular Muscles: Present: EOMI Conjunctiva: Present: Normal Mouth: Present: Moist Mucous Membranes Neck: Present: Normal Range of Motion Respiratory/Chest: Present: Clear to Auscultation, Good Air Exchange. No: Respiratory Distress, Accessory Muscle Use Cardiovascular: Present: Regular Rate and Rhythm, Normal S1, S2. No: Murmurs Abdomen: Present: Normal Bowel Sounds. No: Tenderness, Distention, Peritoneal Signs Back: Present: Normal Inspection Upper Extremity: Present: Normal Inspection. No: Cyanosis, Edema Lower Extremity: Present: Normal Inspection. No: Edema Neurological: Present: GCS=15, CN II-XII Intact, Speech Normal Skin: Present: Warm, Dry, Normal Color. No: Rashes Psychiatric: Present: Alert, Oriented x 3, Normal Insight, Normal Concentration Medical Decision Making ED Course and Treatment: 05/19/17 04:29 Impression: A 61 year old male presents to the emergency department for a laceration above his eye which he obtained after a fall. The patient states that he felt weak and sick before the fell. Plan: -- Head CT -- EKG -- Labs -- Reassess and disposition Progress Notes: EK05/19/17 04:46 Ordered, reviewed, and independently interpreted the EKG. Rate : 90 BPM Rhythm : Sinus Rhythm with 1st degree AV block Interpretation : Non- specific ST segment changes CT Head Without Intravenous Contrast Dictated and Authenticated by: Devendra Justin MD 05/19/2017 5:21 AM Eastern Time ([place] & [place]) IMPRESSION: No evidence of an acute intracranial hemorrhage, midline shift or mass effect is identified.Changes of an acute infarct may not be visible on CT for up to 24 to 48 hours. If this is of clinical concern, a follow up examination and/or MRI may be of benefit. pt with borderline trop, influenza, hypertension , will observe on remote tele case d/w dr cam accepts 05/19/17 06:44 - Lab Interpretations Lab Results: 05/19/17 04:30 05/19/17 04:30 Lab Results 05/19/17 07:25: POC Glucose (mg/dL) 243 H 05/19/17 04:30: Influenza Typ A,B (EIA) Pos for influenza a H 05/19/17 04:30: Sodium 137, Potassium 3.8, Chloride 95 L, Carbon Dioxide 28, Anion Gap 17, BUN 21, Creatinine 1.5, Est GFR ( Amer) 57, Est GFR (Non- Af Amer) 47, Random Glucose 277 H, Calcium 8.8, Total Bilirubin 0.7, AST 36, ALT 35, Alkaline Phosphatase 68, Troponin I 0.11 D, Total Protein 7.7, Albumin 3.9, Globulin 3.8, Albumin/Globulin Ratio 1.0 L 05/19/17 04:30: WBC 12.0 H D, RBC 4.30, Hgb 12.9 L, Hct 38.5 L, MCV 89.5, MCH 30.0, MCHC 33.5, RDW 13.4, Plt Count 197, MPV 9.6, Gran % 72.4 H, Lymph % (Auto ) 13.5 L, [place] % (Auto) 13.8 H, Eos % (Auto) 0.1 L, Baso % (Auto) 0.2, Gran # 8.72 H, Lymph # (Auto) 1.6, [place] # (Auto) 1.7 H, Eos # (Auto) 0.0, Baso # (Auto ) 0.02 I have reviewed the lab results: Yes - RAD Interpretation Radiology Orders: 05/19/17 04:25 HEAD W/O CONTRAST [CT] Stat 05/19/17 06:33 CHEST PORTABLE [RAD] Stat - EKG Interpretation Interpreted by ED Physician: Yes Type: 12 lead EKG - Medication Orders Current Medication Orders: Acetaminophen (Tylenol 325mg Tab) 650 mg PO Q4H PRN PRN Reason: Fever >100.5 F Albuterol/Ipratropium (Duoneb 3 Mg/0.5 Mg (3 Ml) Ud) 3 ml IH BIDRESP [facility] Last Admin: 05/20/17 07:59 Dose: 3 ml Alprazolam (Xanax) 0.25 mg PO DAILY PRN; Protocol PRN Reason: Anxiety Stop: 05/26/17 10:01 Last Admin: 05/19/17 22:40 Dose: 0.25 mg Behavioural Document 05/19/17 22:40 SD (Rec: 05/20/17 00:14 SD [id number]) Maintenance Maintenance Dose Yes Re-Assess: Reassess Psych Meds Document 05/19/17 23:40 SD (Rec: 05/20/17 00:17 SD [id number]) Reassess Psych Med Effective Aspirin (Ecotrin) 81 mg PO DAILY [facility] Last Admin: 05/19/17 10:10 Dose: 81 mg Atorvastatin Calcium (Lipitor) 80 mg PO DAILY [facility] Last Admin: 05/19/17 10:14 Dose: 80 mg Carvedilol (Coreg) 25 mg PO DAILY [facility] Last Admin: 05/19/17 10:12 Dose: 25 mg Fluticasone Propionate (Flonase) 1 actuation NS DAILY [facility] Furosemide (Lasix) 40 mg PO DAILY [facility] Last Admin: 05/19/17 10:14 Dose: Guaifenesin/Dextromethorphan (Mucinex-Dm 600-30 Mg) 1 tab PO BID [facility] Last Admin: 05/19/17 19:33 Dose: 1 tab Insulin Detemir (Levemir) 25 unit SC [facility] Last Admin: 05/19/17 22:31 Dose: 25 unit MAR Blood Glucose Document 05/19/17 22:31 SD (Rec: 05/19/17 22:32 SD [id number]) Blood Glucose Finger Stick Blood Glucose (70-120) 195 Subcutaneous Administrations Document 05/19/17 22:31 SD (Rec: 05/19/17 22:32 SD [id number]) Injection Site MAR Injection Site Right Deltoid Charges for Administration # of Subcutaneous Administrations 1 Insulin Human Lispro (Humalog) [facility] Last Admin: 05/20/17 08:28 Dose: 16 units MAR Blood Glucose Document 05/20/17 08:28 DLL (Rec: 05/20/17 08:28 DLL [id number]) Blood Glucose Finger Stick Blood Glucose (70-120) 183 Subcutaneous Administrations Document 05/20/17 08:28 DLL (Rec: 05/20/17 08:28 DLL [id number]) Injection Site MAR Injection Site Right Arm Charges for Administration # of Subcutaneous Administrations 1 Insulin Human Regular (Humulin R Med) 0 units SC [facility] PRN Reason: Protocol Last Admin: 05/20/17 08:28 Dose: 1 units MAR Blood Glucose Document 05/20/17 08:28 DLL (Rec: 05/20/17 08:29 DLL [id number]) Blood Glucose Finger Stick Blood Glucose (70-120) 183 Subcutaneous Administrations Document 02/17/18 08:28 DLL (Rec: 02/17/18 08:29 DLL [id number]) Injection Site MAR Injection Site Right Arm Charges for Administration # of Subcutaneous Administrations 1 Isosorbide Mononitrate (Imdur Er) 30 mg PO DAILY [facility] Last Admin: 05/19/17 10:17 Dose: Levofloxacin (Levaquin) 500 mg PO DAILY [facility] PRN Reason: Protocol Naproxen (Anaprox Ds) 550 mg PO BID [facility] Last Admin: 05/19/17 19:33 Dose: 550 mg Oseltamivir Phosphate (Tamiflu Cap) 75 mg PO BID [facility] PRN Reason: Protocol Stop: 05/24/17 08:56 Last Admin: 05/19/17 18:03 Dose: 75 mg Sodium Chloride (Slocomb Nasal [place]) 1 ml NS Q3 [facility] Last Admin: 05/20/17 06:20 Dose: Not Given Non-Admin Reason: Patient Asleep Spironolactone (Aldactone) 50 mg PO DAILY [facility] Last Admin: 05/19/17 10:11 Dose: 50 mg Discontinued Medications Aspirin (Aspirin Chewable) 81 mg PO DAILY [facility] Last Admin: 05/19/17 10:11 Dose: Atorvastatin Calcium (Lipitor) 40 mg PO DIN [facility] Carvedilol (Coreg) 12.5 mg PO BID [facility] Last Admin: 05/19/17 10:11 Dose: 12.5 mg Furosemide (Lasix) 40 mg PO DAILY [facility] Last Admin: 05/19/17 10:13 Dose: 40 mg MAR Blood Pressure Document 05/19/17 10:13 LO (Rec: 05/19/17 10:13 LO [id number]) Blood Pressure Blood Pressure (100/60-150/90) 139/90 Hydralazine HCl (Apresoline) 10 mg IVP STAT STA Stop: 05/19/17 06:37 Last Admin: 05/19/17 06:43 Dose: 10 mg IVP Administration Document 05/19/17 06:43 AB (Rec: 05/19/17 06:43 AB [id number] Charges for Administration # of IVP Administrations 1 MAR Pulse and Blood Pressure Document 05/19/17 06:43 AB (Rec: 05/19/17 06:43 AB [id number]) Pulse Pulse Rate (60-90) 83 Blood Pressure Blood Pressure (100/60-150/90) 179/108 Sodium Chloride (Sodium Chloride 0.9%) 1,000 mls @ 60 mls/hr IV .[id number] [facility] Stop: 05/20/17 06:09 Last Admin: 05/19/17 15:33 Dose: 60 mls/hr eMAR Start Stop Document 05/19/17 15:33 VS (Rec: 05/19/17 15:33 VS [id number]) Intravenous Solution Start Date 05/19/17 Start Time 15:33 End Date 05/19/17 Insulin Human Regular (Humulin R Low) 0 units SC [facility] PRN Reason: Protocol Last Admin: 05/19/17 07:29 Dose: 2 units MAR Blood Glucose Document 05/19/17 07:29 LA (Rec: 05/19/17 07:29 LA [facility] [id number]) Blood Glucose Finger Stick Blood Glucose (70-120) 243 Subcutaneous Administrations Document 05/19/17 07:29 LA (Rec: 05/19/17 07:29 LA [facility] [id number]) Injection Site MAR Injection Site Left Deltoid Charges for Administration # of Subcutaneous Administrations 1 Isosorbide Mononitrate (Imdur Er) 30 mg PO DAILY [facility] Last Admin: 05/19/17 10:17 Dose: 30 mg Levofloxacin (Levaquin) 500 mg PO STAT [facility] PRN Reason: Protocol Stop: 05/19/17 06:20 Last Admin: 05/19/17 06:29 Dose: 500 mg Ondansetron HCl (Zofran Inj) 4 mg IVP ONCE ONE Stop: 05/19/17 13:23 Last Admin: 05/19/17 18:03 Dose: 4 mg IVP Administration Document 05/19/17 18:03 VS (Rec: 05/19/17 18:03 VS [id number]) Charges for Administration # of IVP Administrations 1 Oseltamivir Phosphate (Tamiflu Cap) 75 mg PO STAT [facility] PRN Reason: Protocol Stop: 05/19/17 06:19 Last Admin: 05/19/17 06:29 Dose: 75 mg Pneumococcal Polyvalent Vaccine (Pneumovax 23 Vaccine) 0.5 ml IM .ONCE ONE Stop: 05/19/17 14:11 Procedure: Wound Repair - Consent Obtained Consent obtained: Verbal - Performed by Performed by: Attending Physician - Indications Indication(s):: Laceration - Location Location:: Eyebrow Shape:: Linear Dimensions Length cm: 2.6 - Debris Debris:: None - Irrigated Irrigated with ml of normal saline: 50 - Complexity Complexity:: Simple (one layer) - Wound repair method [employer]:: Tissue glue - Scribe Statement The provider has reviewed the documentation as recorded by the Scribe Alisia Jones Provider Scribe Attestation: All medical record entries made by the Scribe were at my direction and personally dictated by me. I have reviewed the chart and agree that the record accurately reflects my personal performance of the history, physical exam, medical decision making, and the department course for this patient. I have also personally directed, reviewed, and agree with the discharge instructions and disposition. Disposition/Present on Arrival - Present on Arrival Any Indicators Present on Arrival: No History of DVT/PE: No History of Uncontrolled Diabetes: No Urinary Catheter: No History Surgical Site Infection Following: None - Disposition Have Diagnosis and Disposition been Completed?: Yes Diagnosis: Syncope, Elevated troponin I level, Laceration of eyebrow, left Disposition: HOSPITALIZED Disposition Time: 07:00 Condition: FAIR
[2017-05-19 05:20] LABS: BASO # 0.02 K/mm3 (0.0-2.0); BASO % 0.2 % (0.0-3.0); EOS % 0.1 % (1.5-5.0); GRAN # 8.72 (1.4-6.5); GRAN % 72.4 % (50.0-68.0); HEMOGLOBIN 12.9 g/dL (14.0-18.0); LYMPH # 1.6 (1.2-3.4); LYMPH % 13.5 % (22.0-35.0); MEAN CELL VOLUME 89.5 fl (80.0-105.0); MEAN CORPUSCULAR HGB CONC 33.5 g/dl (31.0-37.0); MEAN PLATELET VOLUME 9.6 fl (7.0-11.0); MONO # 1.7 (0.1-0.6); MONO % 13.8 % (1.0-6.0); RBC 4.3 10^6/uL (3.5-6.1); RED CELL DISTRIBUTION WIDTH 13.4 % (11.5-14.5)
--- NOTE | 2017-05-19 05:22 | CT ---
EXAM: CT Head Without Intravenous Contrast CLINICAL HISTORY: 61 years old, male; Signs and symptoms; Weakness, extremity TECHNIQUE: Axial computed tomography images of the head/brain without intravenous contrast. All CT scans at this facility use one or more dose reduction techniques, viz.: automated exposure control; ma/kV adjustment per patient size (including targeted exams where dose is matched to indication; i.e. head); or iterative reconstruction technique. 399 images are submitted. Coronal and sagittal reformatted images were created and reviewed. Axial reformatted images were created and reviewed. COMPARISON: No relevant prior studies available. FINDINGS: Brain: Cerebral and cerebellar volume loss. Patchy hypodensity is seen in the periventricular and subcortical white matter. No hemorrhage. Ventricles: Unremarkable. No ventriculomegaly. Bones/joints: Unremarkable. No acute fracture. Soft tissues: Unremarkable. Sinuses: Moderate patchy sinus disease. Mastoid air cells: Opacification of left mastoid air cells. Fluid and soft tissue is seen around the left ossicles in the middle and inner ear. These findings represent left-sided otomastoiditis disease. Orbits: The globe and lens are intact. IMPRESSION: No evidence of an acute intracranial hemorrhage, midline shift or mass effect is identified.Changes of an acute infarct may not be visible on CT for up to 24 to 48 hours. If this is of clinical concern, a follow up examination and/or MRI may be of benefit.
[2017-05-19 05:37] LABS: ALBUMIN 3.9 g/dL (3.0-4.8); CALCIUM 8.8 mg/dL (8.4-10.5)
[2017-05-19 05:48] LABS: TROPONIN I 0.11 ng/mL
[2017-05-19] MEDS ORDERED: levoFLOXacin 500 MG TAB PO STA (06:19)
[2017-05-19] MEDS ORDERED: Insulin Regular 1 UNITS/0.01 ML ML ONE (07:29)
[2017-05-19] MEDS ORDERED: Insulin Reg-LOW-Coverage SC SCH (07:30)
--- NOTE | 2017-05-19 09:42 | RAD ---
HISTORY: Chest pain COMPARISON: 12/21/2016 FINDINGS: LUNGS: The lungs are well inflated. No focal consolidation. There is mild pulmonary venous congestion PLEURA: No significant pleural effusion identified, no pneumothorax apparent. CARDIOVASCULAR: The heart is normal in size. Status post CABG with OSSEOUS STRUCTURES: No significant abnormalities. VISUALIZED UPPER ABDOMEN: Normal. OTHER FINDINGS: None. IMPRESSION: No active pulmonary disease.
--- NOTE | 2017-05-19 10:24 | CARD ---
APPROVED REPORT EKG Measurement Heart [id number] <Conclusion> Sinus rhythm with 1st degree AV block Left axis deviation Anterior DC, old IVCD STTW changes c/w ischemia No change
[2017-05-19] MEDS: Insulin Reg-MEDIUM-Coverage SC SCH ×3 (11:32→22:31)
[2017-05-19] MEDS: Insulin Lispro 1 UNITS/0.01 ML SC SCH (11:34)
[2017-05-19] MEDS: Albuterol-Ipratrop 3 mg / 0.5 (3 ml) UD IH SCH ×2 (12:17→20:03)
--- NOTE | 2017-05-19 13:22 | CP.PCM.PN ---
Subjective - Date & Time of Evaluation Date of Evaluation: 05/19/17 Time of Evaluation: 13:21 - Subjective Subjective: HOUSE DOC NOTE House Doc paged as patient was feeling weak and short of breath. I went down to see patient immediately. Patient was resting in bed with daughter at bedside. Patient reported he was walking to the bathroom to vomit and when walking back he felt short of breath and lightheaded. Patient was given 1 duoneb tx and put on 6L O2 by nasal canula. Patient reported his SOB had improved but he still felt weak. As per patient, he has been unable to eat anything and after drinking some heather darrin he had thrown up. Will give patient 1L of NS at rate of 60cc/hr and ordered 1 dose of Zofran ivp. Accucheck 223. STAT EKG, ABG, BMP, Mag, Phos were ordered- will follow up. Will adjust O2 requirement as per ABG result. Vitals at end of encounter as follows: BP 118/73 HR 74 O2 97% on 6L NC Patient was placed on strict bedrest and Fall Precautions. Dr Valadez (cardio) was spoken to by nursing who reported no further management. Will reach out to Dr Cam (PMD). Objective - Vital Signs/Intake and Output Vital Signs (last 24 hours): Temp Pulse Resp BP Pulse Ox 98.3 F 90 20 139/90 94 L 05/19/17 09:35 05/19/17 12:23 05/19/17 09:35 05/19/17 10:13 05/19/17 09:35 - Medications Medications: Current Medications Acetaminophen (Tylenol 325mg Tab) 650 mg PO Q4H PRN PRN Reason: Fever >100.5 F Albuterol/Ipratropium (Duoneb 3 Mg/0.5 Mg (3 Ml) Ud) 3 ml IH BIDRESP [facility] Last Admin: 05/19/17 12:17 Dose: 3 ml Alprazolam (Xanax) 0.25 mg PO DAILY PRN; Protocol PRN Reason: Anxiety Stop: 05/26/17 10:01 Aspirin (Aspirin Chewable) 81 mg PO DAILY [facility] Last Admin: 05/19/17 10:11 Dose: Not Given Aspirin (Ecotrin) 81 mg PO DAILY [facility] Last Admin: 05/19/17 10:10 Dose: 81 mg Atorvastatin Calcium (Lipitor) 40 mg PO DIN [facility] Atorvastatin Calcium (Lipitor) 80 mg PO DAILY [facility] Last Admin: 05/19/17 10:14 Dose: 80 mg Carvedilol (Coreg) 12.5 mg PO BID [facility] Last Admin: 05/19/17 10:11 Dose: 12.5 mg Carvedilol (Coreg) 25 mg PO DAILY [facility] Last Admin: 05/19/17 10:12 Dose: 25 mg Furosemide (Lasix) 40 mg PO DAILY [facility] Last Admin: 05/19/17 10:13 Dose: 40 mg Furosemide (Lasix) 40 mg PO DAILY [facility] Last Admin: 05/19/17 10:14 Dose: Not Given Insulin Detemir (Levemir) 25 unit SC HS [facility] Insulin Human Lispro (Humalog) 16 units SC ACBL [facility] Last Admin: 05/19/17 11:34 Dose: 16 units Insulin Human Regular (Humulin R Med) 0 units SC [facility] PRN Reason: Protocol Last Admin: 05/19/17 11:32 Dose: 7 units Isosorbide Mononitrate (Imdur Er) 30 mg PO DAILY [facility] Last Admin: 05/19/17 10:17 Dose: 30 mg Isosorbide Mononitrate (Imdur Er) 30 mg PO DAILY [facility] Last Admin: 05/19/17 10:17 Dose: Not Given Oseltamivir Phosphate (Tamiflu Cap) 75 mg PO BID [facility] PRN Reason: Protocol Stop: 05/24/17 08:56 Last Admin: 05/19/17 10:14 Dose: 75 mg Spironolactone (Aldactone) 50 mg PO DAILY [facility] Last Admin: 05/19/17 10:11 Dose: 50 mg
[2017-05-19] MEDS ORDERED: Sodium Chloride 0.9% 1,000 ML IV SCH (13:30)
[2017-05-19 13:36] LABS: ARTERIAL BLOOD GAS HCO3 26.5 mmol/L (21-28); ARTERIAL BLOOD GAS O2 SAT 96.7 % (95-98); ARTERIAL BLOOD GAS PCO2 40 mm/Hg (35-45); ARTERIAL BLOOD GAS PH 7.43 (7.35-7.45); ARTERIAL BLOOD GAS TCO2 27.7 mmol.L (22-28)
[2017-05-19 13:58] LABS: CALCIUM 8.7 mg/dL (8.4-10.5)
[2017-05-19] MEDS ORDERED: Influenza Vaccine 60 mcg/0.5 mL SYR (4YR UP) IM ONE (14:10)
[2017-05-19] MEDS ORDERED: Pneumococcal 23-Valent Vaccine IM ONE (14:10)
--- NOTE | 2017-05-19 16:03 | CON ---
DATE: 05/19/2017 CONSULTATION INDICATIONS: Fall, head and facial trauma, borderline troponin. HISTORY OF PRESENT ILLNESS: This is a 61-year-old man, who is known to me with coronary artery disease, remote coronary bypass surgery and remote coronary intervention, who fell early this morning while walking his dog. He tripped over a step and fell hitting his face in the left eye area. There was a laceration. He did not experience dizziness, lightheadedness or loss of consciousness. There was no chest pain, palpitations, orthopnea, PND, edema, claudication, fever, chills, rigor, sweats, hemoptysis, abdominal pain, nausea, vomiting, diarrhea, constipation or melena. He had recent upper respiratory symptoms and was positive for flu. His troponin was 0.011. PAST MEDICAL HISTORY: Notable for coronary artery disease with a remote coronary bypass surgery in 2009, more recently he has undergone coronary interventions. He has a history of hypertension, diabetes, hyperlipidemia, he has had osteomyelitis of the right toe, carpal tunnel surgery and appendectomy remotely. MEDICATIONS AT THE TIME OF ADMISSION: Include Coreg, Lasix, Insulin, Imdur, Protonix, Crestor, Aldactone and aspirin. ALLERGIES: THERE ARE NO MEDICATION ALLERGIES. SOCIAL HISTORY: He is a nonsmoker. Denies significant alcohol. Lives at home. He is ambulatory. REVIEW OF SYSTEMS: Ten-point review of systems is otherwise unremarkable. FAMILY HISTORY: Noncontributory. PHYSICAL EXAMINATION: GENERAL: He is a well-developed male, lying on a stretcher in the emergency room, in no acute distress. VITAL SIGNS: Notable for sinus rhythm, 88 beats per minute; afebrile; 148/86; 18; 96% on room air. HEENT: Reveals no neck vein distention, thyromegaly, carotid bruits. Mucous membranes moist. Conjunctivae pink. Some dried blood on the left side of the face. There is a laceration. LUNGS: Examination of the lung cosby revealed clear lung cosby. No wheezes or rhonchi. HEART: Examination of the heart revealed normal first and second heart sounds. Soft systolic murmur along the left sternal border. PMI not palpable. ABDOMEN: Soft. Bowel sounds present. No mass, organomegaly, tenderness, rebound, guarding, CVA tenderness or palpable abdominal aortic aneurysm. EXTREMITIES: Revealed no cyanosis, clubbing or edema. NEUROLOGIC: Awake, alert, oriented. SKIN: Warm and dry. No rash or cellulitis. PSYCHIATRIC: Normal as to mood and affect. LABORATORY AND IMAGING: CT scan of the head reveals no significant findings. See report for details. A portable chest x-ray is not interpreted yet. No evidence of CHF, infiltrate or effusion by my reading. White count 12,000, hemoglobin 12.9, hematocrit 38.5, platelet count 197,000. Chemistries unremarkable. Creatinine 1.5, blood sugar 277. LFTs unremarkable. Troponin 0.11. Influenza was positive for influenza A. 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 Hehas a significant cardiac history, but he did not experience chest pain. There was no evidence of arrhythmia. His EKG is done, but not in thesystem yet, I will review it. Apparently, it was unremarkable. He will be admitted to telemetry. I will resume his usual cardiac medications. I will review his old records. He will get Aldactone, aspirin, Coreg, Imdur, Lasix, Lipitor as a replacement for Crestor. He is getting Tamiflu. He received hydralazine. I will follow along with you. I will make additional recommendations based on his clinical course. We will monitor neurologic signs as well. Wong Valadez MD MTDD
[2017-05-19] MEDS: guaiFENesin-DM 600-30 mg ER Tab PO SCH (19:33)
[2017-05-19] MEDS: Naproxen 550 mg Tab PO SCH (19:33)
[2017-05-19] MEDS: Insulin Detemir 100 units/ml Vial (Levemir) SC SCH (22:31)
--- NOTE | 2017-05-20 07:04 | HP ---
HISTORY OF PRESENT ILLNESS: This is a 61-year-old male who is coming into the hospital after he had a fall. The patient states that he has been having significant amount of fatigue and weakness. He has been unable to get up from his bed because of the extreme fatigue he has. He has had some congestion. He states that he was taking his dog out for a walk and he had a fall. He does have history of coronary artery disease with CABG and stent in place. He has diabetes type 2 and hypertension. The patient had an injury to the left side of his eye. He states that he did not lose consciousness, but was not able to stop his fall. He has no fevers or chills. No nausea. No vomiting. No dysuria or frequency. No nocturia. REVIEW OF SYSTEMS: All other review of symptoms are within normal limits except what is mentioned. ALLERGIES: NO KNOWN DRUG ALLERGIES. HOME MEDICATIONS: Medications have been reviewed on the [facility]. He is on carvedilol, Lasix, NovoLog, Levemir, Protonix, Crestor, Aldactone and aspirin. PAST MEDICAL HISTORY: As above. PAST SURGICAL HISTORY: Tonsillectomy and right mastectomy. SOCIAL HISTORY: He is not a smoker. He has no history of alcoholism. He lives at home. He quit smoking about 5 years ago. FAMILY HISTORY: Noncontributory. PHYSICAL EXAMINATION: VITAL SIGNS: Temperature is 98.3, pulse of 73, blood pressure 139/90, respirations 22, O2 saturations 91%. GENERAL: The patient lying in bed, uncomfortable, and in no acute distress. HEENT: Atraumatic and normocephalic. No oral lesions. In the left eye, there is some erythema. There is small laceration. No significant bleeding. He does have some mild bleeding near his nose that is dry. NECK: No JVD, anterior and posterior adenopathy, thyromegaly, or bruits. CARDIOVASCULAR: S1 and S2 regular. No murmur, rubs, or gallop. LUNGS: Clear to auscultation bilaterally. No wheezes, rales, or rhonchi. ABDOMEN: Bowel sounds are positive. Soft, nontender and nondistended. No hepatosplenomegaly. No rebound and no guarding. EXTREMITIES: No cyanosis, clubbing, or edema. NEUROLOGIC: No facial asymmetry. Tongue is midline. No uvula deviation. Power is 5/5 upper extremity and lower extremity. Sensation intact in upper extremity and lower extremity. PSYCHIATRIC: She is awake, alert and oriented x3. No anxiety or depression. She has normal affect. GENITOURINARY: No CVA tenderness. VASCULAR: 2+ pulses in the carotid pulses and pedal pulses. SKIN: No erythema or nodules SPINE: Shows normal curvature. LABORATORY DATA: White count is 12.0. His chemistry shows creatinine of 1.7. He has troponin that was 0.11. The patient has an ABG showed pH of 7.4 with pCO2 of 40. Serology shows an influenza that is positive. His CT of the head shows no evidence of acute intracranial hemorrhage or mass effect. His chest x-ray done shows no active disease and no infiltrates. His EKG shows heart rate of 90 with QTc 494, left axis deviation, nonspecific ST changes. ASSESSMENT: 1. Viral syndrome secondary to flu. 2. Fall. 3. Coronary artery disease. 4. Diabetes type 2. 5. Dyslipidemia. 6. Carpal tunnel syndrome. PLAN: The patient is admitted to the hospital. He has viral syndrome secondary to flu. The patient has been started on IV fluids. The patient is on Tamiflu. He is going to continue with Tylenol as needed. He is on Xanax as needed. I have continued him on his Lipitor for dyslipidemia. The patient is receiving insulin for his diabetes and he is on Flonase. The patient is receiving Coreg for his coronary artery disease. He is on Aldactone. I will continue his Levaquin orally. The patient is going to be placed on contact isolation. We will get cardiac evaluation and also Cardiology evaluation. Will have repeat blood work done tomorrow. Zain Cam MD
--- NOTE | 2017-05-20 07:47 | CP.PCM.PN ---
Subjective - Date & Time of Evaluation Date of Evaluation: 05/20/17 Time of Evaluation: 07:00 - Subjective Subjective: Stable on 3R. No CP or SOB. He is starting to feel better. He did not eat much yesterday. V/S noted. PE: Lungs: clear Cor.: S1S2 Abd.: soft Ext.: no edema Neuro.: alert Labs 05/19 noted. Cr.= 1.7, trops 0.11 and 0.10 ECG 05/19: RSR, LAD, anterior IA, old, IVCD, STTW changes. No acute changes Objective - Vital Signs/Intake and Output Vital Signs (last 24 hours): Temp Pulse Resp BP Pulse Ox 97.8 F 80 20 117/67 96 05/19/17 16:00 05/20/17 00:48 05/19/17 16:00 05/19/17 16:00 05/19/17 16:00 Intake and Output: 05/20/17 05/20/17 06:59 18:59 Intake Total 840 Balance 840 - Medications Medications: Current Medications Acetaminophen (Tylenol 325mg Tab) 650 mg PO Q4H PRN PRN Reason: Fever >100.5 F Albuterol/Ipratropium (Duoneb 3 Mg/0.5 Mg (3 Ml) Ud) 3 ml IH BIDRESP [facility] Last Admin: 05/19/17 20:03 Dose: 3 ml Alprazolam (Xanax) 0.25 mg PO DAILY PRN; Protocol PRN Reason: Anxiety Stop: 05/26/17 10:01 Last Admin: 05/19/17 22:40 Dose: 0.25 mg Aspirin (Ecotrin) 81 mg PO DAILY [facility] Last Admin: 05/19/17 10:10 Dose: 81 mg Atorvastatin Calcium (Lipitor) 80 mg PO DAILY [facility] Last Admin: 05/19/17 10:14 Dose: 80 mg Carvedilol (Coreg) 25 mg PO DAILY [facility] Last Admin: 05/19/17 10:12 Dose: 25 mg Fluticasone Propionate (Flonase) 1 actuation NS DAILY [facility] Furosemide (Lasix) 40 mg PO DAILY [facility] Last Admin: 05/19/17 10:14 Dose: Not Given Guaifenesin/Dextromethorphan (Mucinex-Dm 600-30 Mg) 1 tab PO BID [facility] Last Admin: 05/19/17 19:33 Dose: 1 tab Insulin Detemir (Levemir) 25 unit SC HS [facility] Last Admin: 05/19/17 22:31 Dose: 25 unit Insulin Human Lispro (Humalog) 16 units SC ACBL [facility] Last Admin: 05/19/17 11:34 Dose: 16 units Insulin Human Regular (Humulin R Med) 0 units SC ACHS [facility] PRN Reason: Protocol Last Admin: 05/19/17 22:31 Dose: Not Given Isosorbide Mononitrate (Imdur Er) 30 mg PO DAILY [facility] Last Admin: 05/19/17 10:17 Dose: Not Given Levofloxacin (Levaquin) 500 mg PO DAILY [facility] PRN Reason: Protocol Naproxen (Anaprox Ds) 550 mg PO BID [facility] Last Admin: 05/19/17 19:33 Dose: 550 mg Oseltamivir Phosphate (Tamiflu Cap) 75 mg PO BID [facility] PRN Reason: Protocol Stop: 05/24/17 08:56 Last Admin: 05/19/17 18:03 Dose: 75 mg Sodium Chloride (Childress Nasal Pierson) 1 ml NS Q3 [facility] Last Admin: 05/19/17 21:30 Dose: 1 puff Spironolactone (Aldactone) 50 mg PO DAILY [facility] Last Admin: 05/19/17 10:11 Dose: 50 mg - Labs Labs: 05/19/17 13:20 Assessment and Plan - Assessment and Plan (Free Text) Assessment: Mechanical Fall with facial laceration/head trauma Influenza CAD/Remote CABG/PCI Acute on chronic kidney disease HBP Diabetes HLD S/P Urmila., CTS OM right toe Plan Await AM labs Tamiflu Continue cardiac meds OOB to chair as farooq. Monitor: I/O, neuro signs, labs, renal fx. sats. etc. Will follow.
[2017-05-20 07:52] LABS: BASO # 0.02 K/mm3 (0.0-2.0); BASO % 0.3 % (0.0-3.0); EOS % 0.5 % (1.5-5.0); GRAN # 3.77 (1.4-6.5); GRAN % 62.4 % (50.0-68.0); HEMOGLOBIN 11.8 g/dL (14.0-18.0); LYMPH # 1.4 (1.2-3.4); LYMPH % 22.8 % (22.0-35.0); MEAN CELL VOLUME 90.2 fl (80.0-105.0); MEAN CORPUSCULAR HEMOGLOBIN 28.9 pg (25.0-35.0); MEAN PLATELET VOLUME 9.9 fl (7.0-11.0); MONO # 0.9 (0.1-0.6); RBC 4.09 10^6/uL (3.5-6.1); RED CELL DISTRIBUTION WIDTH 13.7 % (11.5-14.5); WHITE BLOOD COUNT 6.1 10^3/ul (4.5-11.0)
[2017-05-20] MEDS: Albuterol-Ipratrop 3 mg / 0.5 (3 ml) UD IH SCH ×2 (07:59→19:40)
[2017-05-20] MEDS: Insulin Reg-MEDIUM-Coverage SC SCH ×4 (08:28→22:16)
[2017-05-20] MEDS: Insulin Lispro 1 UNITS/0.01 ML SC SCH ×2 (08:28→13:05)
[2017-05-20 08:48] LABS: ALBUMIN 3.5 g/dL (3.0-4.8)
--- NOTE | 2017-05-20 10:03 | CARD ---
APPROVED REPORT EKG Measurement Heart [id number] <Conclusion> RSR with 1st degree AVB LAD IVCD Anterior IN, age unknown STTW changes c/w ischemia Prolonged QTc
[2017-05-20] MEDS: guaiFENesin-DM 600-30 mg ER Tab PO SCH ×2 (10:21→17:43)
[2017-05-20] MEDS: levoFLOXacin 500 MG TAB PO SCH (10:21)
[2017-05-20] MEDS: Naproxen 550 mg Tab PO SCH ×2 (10:22→17:43)
[2017-05-20] MEDS: Fluticasone Nasal 50 mcg/Spray NS SCH (10:22)
--- NOTE | 2017-05-20 21:11 | PN ---
DATE: SUBJECTIVE: The patient is a 61-year-old white male. The patient states he has not been feeling well for the last 3 to 4 days. He was so weak, tired that he stayed in bed for 3 to 4 days. He has no energy to get out of bed. He fell hurting his left side of the face after he took the dog out to walk. The patient has past medical history significant for coronary artery disease and hypertension, status post open heart surgery. PHYSICAL EXAMINATION: GENERAL: On examination today, he is awake and alert, able to communicate. VITAL SIGNS: He is afebrile, pulse 75, respirations 20, blood pressure 139/90. LUNGS: Bilateral fair airflow. No rhonchi or crackle. HEART: S1 and S2 audible. ABDOMEN: Soft. Nontender. No rebound. NEUROLOGIC: He is awake, alert, oriented, communicative. SKIN: He has resolving ecchymosis around his left eye. ASSESSMENT: 1. Viral syndrome. 2. Status post fall with left periorbital ecchymosis. 3. Hypertension. 4. Hyperlipidemia. 5. Api-oznjoka-uexyamnva diabetes. 6. Hypertension. PLAN: The patient's MAR reviewed. Found to be appropriate. Continue current medications. The patient wishes to go home. We will reevaluate in the a.m. and make discharge plan. Becca Alvarado MD
--- NOTE | 2017-05-20 21:28 | PN ---
DATE: 05/20/2017 PULMONARY PROGRESS NOTE REFERRING PHYSICIAN: Zain Cam MD. SUBJECTIVE: He is sitting at the side of the bed, feels a little better. Decreased rhinitis, cough, and shortness of breath. Tolerated CPAP well. No nausea, no vomiting, no diarrhea. No leg pain, leg swelling. PHYSICAL EXAMINATION: GENERAL: In no acute distress. VITAL SIGNS: Temperature 98, heart rate 69, respiratory rate is 20, blood pressure 130/70, pulse ox 95% on room air. HEENT: Moist mucous membrane. Crowded airway. Mallampati score is IV. NECK: Supple. No JVD. LUNGS: Have a few scattered rhonchi. HEART: S1 and S2. ABDOMEN: Soft, nontender, no organomegaly. EXTREMITIES: There is no edema. NEUROLOGIC: Awake, alert, follows simple command. MEDICATIONS: He is on Aldactone 50 mg daily, naproxen 550 mg twice a day, Coreg 25 mg daily, DuoNeb q.12 hours, Ecotrin 81 mg daily, Flonase one spray each nostril daily, insulin coverage, Imdur ER 30 mg daily, Lasix 40 mg daily, Levaquin 500 mg daily, Levemir 25 units at bedtime, Lipitor 80 mg daily, Mucinex DM one tab twice a day, nasal saline one spray to each nostril q.3 hours, Tamiflu 75 mg twice a day, Tylenol p.r.n., Xanax 0.25 mg daily p.r.n. LABORATORY DATA: Hemoglobin 11.8, hematocrit 36.9, WBC of 6.1, platelet count is 185. Sodium 138, potassium 3.8, chloride 98, bicarbonate 29, BUN 39, creatinine 2.0, glucose 183, calcium 9.0. AST 33, ALT 36, alk phos is 59, albumin is 3.5. IMPRESSION AND PLAN: Influenza A infection with sinusitis and acute bronchitis, may have sleep apnea syndrome, coronary artery disease, diabetes, hyperlipidemia, history of carpal tunnel syndrome. I agree with the present management. Continue antiinflammatory medication. Continue antibiotics. CPAP while sleeping, gastric prophylaxis, deep vein thrombosis prophylaxis. Thank you and we will follow with you. Kendra Landon MD
[2017-05-20] MEDS: Insulin Detemir 100 units/ml Vial (Levemir) SC SCH (22:23)
[2017-05-21] MEDS: Insulin Reg-MEDIUM-Coverage SC SCH ×2 (07:50→12:10)
[2017-05-21] MEDS: Insulin Lispro 1 UNITS/0.01 ML SC SCH ×2 (07:51→12:11)
[2017-05-21] MEDS: Albuterol-Ipratrop 3 mg / 0.5 (3 ml) UD IH SCH (08:08)
[2017-05-21 09:33] VITALS: RESP 20; TEMP 97.5; O2SAT 95
[2017-05-21 09:40] LABS: CALCIUM 9.2 mg/dL (8.4-10.5)
[2017-05-21] MEDS: guaiFENesin-DM 600-30 mg ER Tab PO SCH (10:17)
[2017-05-21] MEDS: Naproxen 550 mg Tab PO SCH (10:17)
[2017-05-21] MEDS: Fluticasone Nasal 50 mcg/Spray NS SCH (10:17)
[2017-05-21] MEDS: levoFLOXacin 500 MG TAB PO SCH (10:21)
[2017-05-21 10:27] VITALS: BP 155/84; PULSE 73
--- NOTE | 2017-05-21 21:56 | PN ---
DATE: 05/21/2017 PULMONARY PROGRESS NOTE ATTENDING PHYSICIAN: Zain Cam MD SUBJECTIVE: He is sitting side of the bed. Night was unremarkable. Feels better. Decreased cough. Decreased shortness of breath. No nausea, no diarrhea, leg pain or leg swelling. OBJECTIVE: GENERAL: In no acute distress. VITAL SIGNS: Temperature is 98, heart rate 73, respiratory rate is 20, blood pressure 155/84, pulse ox 95% on room air. HEENT: Moist mucous membrane. Crowded airway. Mallampati score is 4. NECK: Supple. No JVD. LUNGS: Has fair airflow with few rhonchi. HEART: S1 and S2. ABDOMEN: Soft, nontender, no organomegaly. EXTREMITIES: There is no edema. NEUROLOGIC: Awake, alert, follows simple command. MEDICATIONS: Reviewed. No new changes in medication reported since yesterday. LABORATORY DATA: Reviewed and noted. Sodium 144, potassium 4.2, chloride 101, bicarbonate 29, BUN 36, creatinine 1.5, glucose 122, calcium is 9.2. Influenza A was positive. IMPRESSION AND PLAN: Influenza A infection triggering chronic obstructive lung disease, has obstructive sleep apnea syndrome, coronary artery disease, diabetes, hyperlipidemia, history of carpal tunnel syndrome. Pulmonary point of view, he is doing very good and could be discharged home on Tamiflu inhaled bronchodilator. The patient has known sleep apnea syndrome, does not have a CPAP, may need to schedule him for separate study as an outpatient CPAP, we will try to make arrangements. Thank you and we will follow with you. Kendra Landon MD
--- NOTE | 2017-05-22 05:23 | DS ---
HISTORY OF PRESENT ILLNESS: The patient is a 61-year-old white male who passed out at home. He was having generalized weakness and fatigue. Patient passed out at home and has a left periorbital bruise that seems to be resolving. Patient was seen and examined today. PHYSICAL EXAMINATION: GENERAL: He is awake, alert, oriented, wished to go home. VITAL SIGNS: Afebrile, pulse 73, respirations 18, blood pressure 155/84. LUNGS: Bilateral good airflow. No rhonchi or crackle. HEART: S1 and S2 audible. ABDOMEN: Soft and nontender. No rebound. No guarding. NEUROLOGIC: He is awake, alert, oriented. Able to communicate, ambulatory. LABORATORY EXAM: Sodium 144, potassium 4.2, chloride 101, CO2 29, BUN 36, creatinine 1.5, blood sugar 122. His flu test is positive. ASSESSMENT AND PLAN: 1. Viral syndrome. 2. Status post syncope. 3. Left periorbital contusion. 4. History of hypertension. 5. Tuz-xaqegjj-tcohrxskm diabetes. PLAN: Patient is being discharged home today on Levaquin 500 daily for 5 more days and he will finish his course of Tamiflu. A prescription is given 75 mg twice a day for 3 days. He will follow with PMD. Becca Alvarado MD
[2017-05-22] MEDS ORDERED: Pantoprazole 40 mg EC Tab PO SCH (06:30)
--- NOTE | 2017-05-23 09:32 | CON ---
DATE: 05/19/2017 PULMONARY CONSULTATION REFERRING PHYSICIAN: Zain Cam MD REASON FOR CONSULTATION: Cough, rhinitis, shortness of breath, has influenza A positive. HISTORY OF PRESENT ILLNESS: This is a 61-year-old gentleman with known history of severe cardiomyopathy, coronary artery disease with coronary bypass surgery, multiple stents, diabetes, hypertension, obesity, may have sleep apnea syndrome in the past, refused to use CPAP/BiPAP, over the last 2 to 3 days, has been sick with cough, shortness of breath, headache and fever, did not go out. Finally, he had to take is dog out, but slipped, hit his head on the floor, brought into emergency room with a fever, cough, shortness of breath, rhinitis, found to have influenza A positive, started on Tamiflu, also placed on antibacterial medications, bronchodilator. No hemoptysis, no hematemesis, no hematuria. No diarrhea. No leg swelling reported. PAST MEDICAL HISTORY: Sleep apnea syndrome, coronary artery disease, history of coronary bypass surgery, history of coronary stent, diabetes, hypertension and obesity. ALLERGIES: NONE KNOWN. SOCIAL HISTORY: He smokes 1 or 2 cigarettes when drinking alcohol. FAMILY HISTORY: No significant cardiopulmonary disease reported. MEDICATIONS: He is on Aldactone 50 mg daily, Coreg 25 mg daily, DuoNeb q. 12 hours, Ecotrin 81 mg daily, insulin coverage, Imdur ER 30 mg daily, Lasix 40 mg daily, Levemir 25 units at bedtime, Lipitor 80 mg daily, IV fluid normal saline 60 mL per hour, Tamiflu 75 mg twice a day, Tylenol p.r.n., Xanax 0.25 mg daily p.r.n. REVIEW OF SYSTEMS: He has headache, rhinitis, cough, sputum production. No chest pain. No nausea. No vomiting. No diarrhea. No leg pain or leg swelling. PHYSICAL EXAMINATION: GENERAL: Lying in the bed with mild distress secondary to cough and shortness of breath. VITAL SIGNS: Temperature is 98, heart rate 73, respiratory rate is 22, blood pressure 139/90, pulse ox 91% on 2 liters nasal cannula. HEENT: Moist mucous membranes. Crowded airway. Mallampati score is IV. Mild facial tenderness. NECK: Supple. No JVD. LUNGS: Has scattered rhonchi. HEART: S1 and S2. ABDOMEN: Soft, nontender, no organomegaly. EXTREMITIES: No edema. NEUROLOGIC: Awake and alert and follows simple commands. LABORATORY DATA: Shows hemoglobin 12.9, hematocrit 38.5, WBC 12.0, platelet is 197. Has ABG done, which shows pH 7.43, pCO2 40, O2 72 that is on nasal cannula. Sodium 134, potassium 4.0, chloride 95, bicarbonate 29, BUN 26, creatinine 1.7, glucose 165, calcium 8.7, phosphorus 2.5, magnesium 2.0, troponin 0.10. Influenza A is positive. CT of the head was unremarkable. Chest x-ray done, which shows no active pulmonary disease. IMPRESSION AND PLAN: Influenza A infection with sinusitis and acute bronchitis, history of coronary artery disease, multiple coronary stents, history of coronary artery bypass graft, diabetes, hypertension, obesity, known history of sleep apnea syndrome. I agree with Dr. Zain Cam, with the present management. Continue Tamiflu. We will add nasal saline 2 sprays to each nostril q. 6 hours, Flonase one spray each nostril twice a day. Add inhaled bronchodilator, gastric prophylaxis, deep venous thrombosis prophylaxis. We will try continuous positive airway pressure 8 cm 30% oxygen while sleeping. May use Motrin for headache and fever. Gastric prophylaxis. Thank you and we will follow with you. Kendra Landon MD
== END 2017-05-21 15:50 | disposition home or self-care (01) | DRG 194 ==
LOC: ED 04:15 → ERH 06:39 → OBSVTOIN 08:55 → 3RNO 09:33
PROVIDERS: ADMIT Internal Medicine Nephrology; ATTEND Internal Medicine Nephrology
DX: J10.1 Influenza due to other identified influenza virus with other respiratory manifestations (principal); I42.9 Cardiomyopathy, unspecified; E11.22 Type 2 diabetes mellitus with diabetic chronic kidney disease; J44.0 Chronic obstructive pulmonary disease with (acute) lower respiratory infection; W10.9XXA Fall (on) (from) unspecified stairs and steps, initial encounter; I12.9 Hypertensive chronic kidney disease with stage 1 through stage 4 chronic kidney disease, or unspecified chronic kidney disease; I25.10 Atherosclerotic heart disease of native coronary artery without angina pectoris; J20.9 Acute bronchitis, unspecified; E78.5 Hyperlipidemia, unspecified; F17.210 Nicotine dependence, cigarettes, uncomplicated; G47.33 Obstructive sleep apnea (adult) (pediatric); J31.0 Chronic rhinitis; N18.9 Chronic kidney disease, unspecified; S01.112A Laceration without foreign body of left eyelid and periocular area, initial encounter; Y93.K1 Activity, walking an animal; Z79.82 Long term (current) use of aspirin; Z90.49 Acquired absence of other specified parts of digestive tract; Z95.1 Presence of aortocoronary bypass graft; Z95.5 Presence of coronary angioplasty implant and graft; J32.9 Chronic sinusitis, unspecified

== ENCOUNTER 2017-09-03 21:05 | Inpatient (IN) | payer OTHER ==
[2017-09-03 21:06] VITALS: BMI 32.1
[2017-09-03] MEDS ORDERED: Nitroglycerin 2% Ointment Foilpak UD TOP STA (21:29)
[2017-09-03] MEDS ORDERED: Albuterol-Ipratrop 3 mg / 0.5 (3 ml) UD IH STA (21:32)
--- NOTE | 2017-09-03 21:34 | ED PDOC ---
Arrival/HPI - General Chief Complaint: Chest Pain Time Seen by Provider: 09/03/17 21:17 Historian: Patient, Family (daughter at bedside) - History of Present Illness Narrative History of Present Illness (Text): 09/03/172119 pt p/w + 2 days onset of sob, worsening with exertion; pt states he also noted substernal/central chest pain/pressure, at most pain is 7-8/10; pt states pain is non-radiating, + general weakness/fatigue, + diaphoretic, + lightheaded/dizzy , nearly passed out today; pt states he was painting rooms in his house over the last 2 days, and today the above symptoms became severe; pt's daughter noted pt's complaints and instructed pt to come to Emergency department for further eval; pt states no subjective fever, + chills/shakes, no abd pain, + nausea, no vomiting, no numbness/tingling, no urinary/bowel changes, no incontinence, no fall/trauma/sick contact, no defense travel administrator denied LOC pt denied hutchison pt denied vision changes pt is here for further eval pt's without other complaints PCP: Dr Cam Cards: Dr Saleh Past medical hx: extensive cardiac diseae (9 stents, 5 vessel bypass/CABG) last cardiac eval was 6 months ago Time/Duration: < week (2 days) Symptom Onset: Sudden Symptom Course: Worsening Quality: Tightness, Cramping Severity Level: 8, Severe Activities at Onset: Other (worse with exertion) Context: Exertion, Home Past Medical History - Provider Review Nursing Documentation Reviewed: Yes - Travel History Have you recently traveled outside [place] w/in the past 3 mons?: No - Past History Past History: No Previous - Infectious Disease Hx of Infectious Diseases: None - Tetanus Immunization Tetanus Immunization: Up to Date - Cardiac Hx Hypertension: Yes Hx Pacemaker: No - Pulmonary Hx Respiratory Disorders: Yes Hx Sleep Apnea: Yes - Neurological Hx Paralysis: No - HEENT Hx HEENT Disorder: No - Renal Hx Renal Disorder: No - Endocrine/Metabolic Hx Diabetes Mellitus Type 2: Yes - Hematological/Oncological Hx Blood Transfusions: No (UNKNOWN- ) Hx Blood Transfusion Reaction: No - Integumentary Hx Dermatological Disorder: No - Musculoskeletal/Rheumatological Hx Musculoskeletal Disorders: Yes (HAND) - Gastrointestinal Hx Gastrointestinal Disorders: No - Genitourinary/Gynecological Other/Comment: R mastectomy at age14 - Psychiatric Hx Emotional Abuse: No Hx Physical Abuse: No Hx Substance Use: No (DENIED PASR ABUSE) - Surgical History Hx Appendectomy: Yes Hx Coronary Stent: Yes (x7) Hx Musculoskeletal Surgery: Yes Hx Open Heart Surgery: Yes (Bypass x 5) Hx Tonsillectomy: Yes Other/Comment: Heart Stents x 9 - Anesthesia Hx Anesthesia: Yes Hx Anesthesia Reactions: No Hx Malignant Hyperthermia: No - Suicidal Assessment Feels Threatened In Home Enviroment: No Family/Social History - Physician Review Nursing Documentation Reviewed: Yes Family/Social History: No Known Family HX Smoking Status: Never Smoked Hx Alcohol Use: No (DENIES) Hx Substance Use: No (DENIED PASR ABUSE) Hx Substance Use Treatment: No Allergies/Home Meds Allergies/Adverse Reactions: Allergies No Known Allergies Allergy (Verified 09/03/17 21:27) Home Medications: Home Meds Medication Instructions Recorded Confirmed Carvedilol [Coreg] 25 mg PO DAILY 12/19/16 09/03/17 Furosemide [Lasix] 40 mg PO DAILY 12/19/16 09/03/17 Insulin Aspart, Recombinant 16 unit SC ACBL 12/19/16 09/03/17 [Novolog] Insulin Detemir [Levemir] 25 unit SC HS 12/19/16 09/03/17 Isosorbide Mononitrate ER [Imdur 30 mg PO DAILY 12/19/16 09/03/17 ER] Rosuvastatin Calcium [Crestor] 20 mg PO DAILY 12/19/16 09/03/17 Aspirin [Ecotrin] 81 mg PO DAILY 01/16/17 09/03/17 ALPRAZolam [Xanax] 0.25 mg PO DAILY 02/03/17 09/03/17 Review of Systems - Review of Systems Constitutional: Fatigue. absent: Fevers Eyes: Normal ENT: Normal Respiratory: SOB. absent: Cough, Sputum, Wheezing Cardiovascular: Chest Pain, VAZ. absent: Syncope Gastrointestinal: Nausea. absent: Abdominal Pain, Vomiting Genitourinary Male: Normal Musculoskeletal: Normal Skin: Normal Neurological: Dizziness. absent: Focal Weakness, Speech Changes, Disequilibrium Endocrine: Diaphoresis Hemo/Lymphatic: Normal Psychiatric: Normal Physical Exam - Physical Exam Narrative Physical Exam (Text): 09/03/17 2120 General: alert/awake, GCS = 15, oriented x 3, resting in bed, uncomfortable, cooperative, interactive; NAD Head: NC/AT EYE: PERRLA, EOMI, sclera anicteric, no nystagmus, no photophobia; visual field intact b/l Facial: WNL Oral: uvula/tongue are midline, no exudate/lesions, no drooling/stridor, no dysphonia; intact dentitions; mild dry oral mucosa NECK: intact ROM, no midline tenderness, no nuchal rigidity, no meningeal signs ; no step off Chest: CTA b/l, no w/r/r; no tachypenia, no accessory muscle use noted; coarse breath sounds noted bibasiliar Chest Wall: no crepitus, no lesions, no gross deformities, no focal tenderness Cardiac: +S1, +S2, no m/r/r, no tachycardia Abdominal: +BS, soft/nd/nt, well nourished patient; no masses/rebound/guarding/ rigidity; no alvarez's sign, no mcburney's point tenderness Extremities: intact ROM, strength 5/5 grossly intact in all limbs, neurovasc intact b/l; + ambulatory; reflex +2/2; faint b/l lower ext pitting edema +1/5, no justin's sign b/l BACK: no step off, no midline tenderness, NO crepitus, no gross deformities noted; Intact ROM SKIN: cap refill < 1 sec, no ulcerations, no petechiae, no rashes; no gross pallor NEURO: CNII-XII WNL, no facial asymmetries, no slurr speech, oriented x 3 NIH stroke scale ~ 0 Psych: normal insight, normal affect; follows command with ease Vital Signs Reviewed: Yes Vital Signs Temp Pulse Resp BP Pulse Ox 09/04/17 14:00 97.6 F 73 20 156/90 H 92 L 09/04/17 13:32 72 153/95 H 09/04/17 09:25 161/91 H 09/04/17 06:53 73 09/04/17 06:52 98.2 F 73 18 150/89 92 L 09/04/17 06:00 73 09/04/17 03:32 86 09/04/17 03:31 87 20 159/91 H 95 09/04/17 01:38 99.8 F H 93 H 20 156/95 H 95 09/04/17 00:16 100.2 F H 94 H 20 164/88 H 96 09/03/17 23:29 144/80 09/03/17 23:08 88 19 144/77 95 09/03/17 21:29 98.4 F 100 H 18 204/100 H 95 Temperature: Afebrile Blood Pressure: Hypertensive Pulse: Tachycardic Respiratory Rate: Normal Appearance: Positive for: Well-Appearing, Non-Toxic, Uncomfortable. No: Comfortable, Ill-Appearing, Unkept Pain Distress: None Mental Status: Positive for: Alert and Oriented X 3 - Systems Exam Head: Present: Atraumatic, Normocephalic Medical Decision Making ED Course and Treatment: 09/03/17 21:30 Impression: chest pain/sob, weakness i have consider all the differential diagnosis regarding pt's chief medical complaints/clinical findings, including but are not limited to: r/o acs, r/o chf , r/o infection A/P: chest pain, r/o acs, r/o infection - labs - iv - xray - acs eval - supportive care - observe/reevaluation 2200 pt's bp is improved pt currently has no chest pain pt took ASA prior to Emergency department arrival 2230 pt is made aware of his medical results agrees with admission 09/03/17 22:45 Dr Cam contacted, made aware, agrees with admission; would like to consult Dr Saleh (cards), and Dr Eric (ID) Re-evaluation Time: 22:42 Reassessment Condition: Improved - Critical Care Critical Care Minutes: 45 minutes Critical Care Time: Excluding Proc Time Narrative Critical Care (Text): 09/03/17 22:42 critical care time: 45min, excluding procedure time, excluding time teaching residents/students/mid-level providers; including initial eval/diagnosis, diagnostic interpretation, re-eval, consultations, final disposition - Lab Interpretations Microbiology Results: Microbiology Results 09/03/17 22:07 Blood-Venous Blood Culture - Preliminary NO GROWTH AFTER 24 HOURS 09/03/17 21:30 Blood-Venous Blood Culture - Preliminary NO GROWTH AFTER 24 HOURS Lab Results: 09/03/17 21:37 09/03/17 21:37 Lab Results 09/03/17 21:37: pO2 66 H, VBG pH 7.44 H, VBG pCO2 46.0, VBG HCO3 31.2 H, VBG Total CO2 32.6 H, VBG O2 Sat (Calc) 99.7 H, VBG Base Excess 6.1 H, VBG Potassium 4.1, Sodium 137.0, Chloride 99.0, Glucose 371 H, Lactate 2.3 H, FiO2 21.0, Venous Blood Potassium 4.1 09/03/17 21:37: PT 12.2, INR 1.07, APTT 24.8 L 09/03/17 21:37: Sodium 138, Chloride 97 L, Potassium 4.0, Carbon Dioxide 28, Anion Gap 17, BUN 24 H, Creatinine 1.1, Est GFR ( Amer) > 60, Est GFR ( Non-Af Amer) > 60, Random Glucose 341 H* D, Calcium 9.4, Magnesium 1.9, Total Bilirubin 0.5, AST 38, ALT 40, Alkaline Phosphatase 99, Lactate Dehydrogenase 670, Total Creatine Kinase 126, Troponin I 0.03 D, NT-Pro-B Natriuret Pep 798 H , Total Protein 8.3, Albumin 4.3, Globulin 4.0, Albumin/Globulin Ratio 1.1 09/03/17 21:37: WBC 20.8 H D, RBC 4.90, Hgb 14.7 D, Hct 42.6, MCV 86.9 D, MCH 30.0, MCHC 34.5, RDW 13.3, Plt Count 252, MPV 9.9, Gran % 85.4 H, Lymph % (Auto ) 7.8 L, Leslie % (Auto) 6.3 H, Eos % (Auto) 0.4 L, Baso % (Auto) 0.1, Gran # 17.72 H, Lymph # (Auto) 1.6, Leslie # (Auto) 1.3 H, Eos # (Auto) 0.1, Baso # (Auto ) 0.03 I have reviewed the lab results: Yes Interpretation: Abnormal lab values (elevated BNP/GLUC/wbcs) - RAD Interpretation Narrative RAD Interpretations (Text): 09/03/17 22:43 Chest X-ray (prelim reading): NAD Radiology Orders: 09/03/17 21:29 CHEST TWO VIEWS (PA/LAT) [RAD] Stat Advertising Operations Coordinator: ED Physician - EKG Interpretation EKG Interpretation (Text): 09/03/17 21:37 Sinus tach at 100 bpm, LAD, RBBB, no ectopy, + 1st degree av block, inverted T In leads I, L, non-specific st-t changes, ABNL EKG; no gross changes compare with old ekg 05/2017 Interpreted by ED Physician: Yes Type: 12 lead EKG Comparison: Similar to previous EKG - Medication Orders Current Medication Orders: Acetaminophen (Tylenol 325mg Tab) 650 mg PO Q4 PRN PRN Reason: Fever >100.4 F Last Admin: 09/04/17 02:09 Dose: 650 mg MAR Pain/Vitals Document 09/04/17 02:09 SSE (Rec: 09/04/17 02:09 SSE [id number]) Pain Reassessment Is This A Pain ReAssessment? Yes Sleep Is patient sleeping during reassessment? No Presence of Pain Presence of Pain Yes Pain Scale Used Pain Scale Used Numeric Location Pain Location Body Site Generalized Description Constant Intensity 8 Re-Assess: MAR Pain/Vitals Document 09/04/17 03:09 SSE (Rec: 09/04/17 03:41 SSE [id number]) Pain Reassessment Is This A Pain ReAssessment? Yes Sleep Is patient sleeping during reassessment? No Presence of Pain Presence of Pain No Aspirin (Aspirin Chewable) 81 mg PO DAILY [facility] Last Admin: 09/05/17 09:09 Dose: 81 mg Atorvastatin Calcium (Lipitor) 40 mg PO DIN [facility] Last Admin: 09/05/17 17:41 Dose: 40 mg Carvedilol (Coreg) 12.5 mg PO BID [facility] Last Admin: 09/05/17 17:41 Dose: 12.5 mg Furosemide (Lasix) 40 mg PO DAILY [facility] Last Admin: 09/05/17 09:09 Dose: 40 mg MAR Blood Pressure Document 09/05/17 09:09 BERTO (Rec: 09/05/17 09:09 [facility]ERTO [facility] [id number]) Blood Pressure Blood Pressure (100/60-150/90) 166/78 Insulin Detemir (Levemir) 25 unit SC HS [facility] Last Admin: 09/04/17 22:17 Dose: 25 unit Subcutaneous Administrations Document 09/04/17 22:17 TUBE MILL OPERATOR (Rec: 09/04/17 22:17 TUBE MILL OPERATOR [id number]) Injection Site MAR Injection Site Right Abdomen Charges for Administration # of Subcutaneous Administrations 1 Insulin Human Lispro (Humalog High) 0 units SC ACHS LA PRN Reason: Protocol Last Admin: 09/05/17 16:54 Dose: Insulin Human Lispro (Humalog) 16 units SC ACBL [facility] Last Admin: 09/05/17 11:15 Dose: 16 units Subcutaneous Administrations Document 09/05/17 11:15 BERTO (Rec: 09/05/17 11:16 [facility]ERTO [facility] [id number]) Charges for Administration # of Subcutaneous Administrations 1 Isosorbide Mononitrate (Imdur Er) 30 mg PO DAILY [facility] Last Admin: 09/05/17 09:08 Dose: 30 mg Discontinued Medications Albuterol/Ipratropium (Duoneb 3 Mg/0.5 Mg (3 Ml) Ud) 3 ml IH STAT STA Stop: 09/03/17 21:33 Last Admin: 09/03/17 22:09 Dose: 3 ml Carvedilol (Coreg) 12.5 mg PO BID [facility] Last Admin: 09/05/17 17:44 Dose: Clonidine HCl (Catapres) 0.1 mg PO STAT STA Stop: 09/04/17 01:50 Last Admin: 09/04/17 02:10 Dose: 0.1 mg Furosemide (Lasix) 20 mg IVP STAT STA Stop: 09/03/17 23:12 Last Admin: 09/03/17 23:29 Dose: 20 mg MAR Blood Pressure Document 09/03/17 23:29 LA (Rec: 09/03/17 23:30 LA [id number]) Blood Pressure Blood Pressure (100/60-150/90) 144/80 IVP Administration Document 09/03/17 23:29 LA (Rec: 09/03/17 23:30 LA [id number]) Charges for Administration # of IVP Administrations 1 Ceftriaxone Sodium (Rocephin 1 Gram Ivpb) 1 gm in 100 mls @ 200 mls/hr IVPB STAT STA PRN Reason: Protocol Stop: 09/03/17 22:49 Last Admin: 09/03/17 22:50 Dose: 200 mls/hr eMAR Start Stop Document 09/03/17 22:50 LA (Rec: 09/03/17 22:51 LA [id number]) Intravenous Solution Start Date 09/03/17 Start Time 22:50 End Date 09/03/17 End time 23:20 Total Infusion Time 30 Azithromycin (Zithromax 500mg In Ns) 500 mg in 250 mls @ 167 mls/hr IVPB STAT STA PRN Reason: Protocol Stop: 09/03/17 23:50 Last Admin: 09/04/17 00:23 Dose: 167 mls/hr eMAR Start Stop Document 09/04/17 00:23 SSE (Rec: 09/04/17 00:24 SSE [id number]) Intravenous Solution Start Date 09/04/17 Start Time 00:24 Cefepime HCl (Maxipime 2gm) 2 gm in 100 mls @ 100 mls/hr IVPB Q12 LA PRN Reason: Protocol Stop: 09/09/17 06:31 Last Admin: 09/05/17 11:05 Dose: 100 mls/hr eMAR Start Stop Document 09/05/17 11:05 BERTO (Rec: 09/05/17 11:05 [facility]ERTO [facility] [id number]) Intravenous Solution Start Date 09/05/17 Start Time 11:05 Vancomycin HCl (Vancomycin 1gm) 1 gm in 250 mls @ 167 mls/hr IVPB Q12H LA PRN Reason: Protocol Last Admin: 09/05/17 05:48 Dose: 167 mls/hr eMAR Start Stop Document 09/05/17 05:48 TUBE MILL OPERATOR (Rec: 09/05/17 05:48 TUBE MILL OPERATOR [id number]) Intravenous Solution Start Date 09/05/17 Start Time 05:48 End Date 09/05/17 Insulin Human Regular (Humulin R) 10 units IVP ONCE ONE Stop: 09/03/17 22:11 Last Admin: 09/03/17 22:23 Dose: 10 units MAR Blood Glucose Document 09/03/17 22:23 LA (Rec: 09/03/17 22:23 LA [id number]) Blood Glucose Finger Stick Blood Glucose (70-120) 341 IVP Administration Document 09/03/17 22:23 LA (Rec: 09/03/17 22:23 LA [id number]) Charges for Administration # of IVP Administrations 1 Labetalol HCl (Trandate) 10 mg IV STAT STA Stop: 09/03/17 23:26 Last Admin: 09/04/17 00:23 Dose: Nitroglycerin (Nitro-Bid 2% Oint) 1 ea TOP STAT STA Stop: 09/03/17 21:30 Last Admin: 09/03/17 22:28 Dose: 1 ea Nitroglycerin (Nitrostat Sl Tab) 0.4 mg SL STAT STA Stop: 09/03/17 21:34 Last Admin: 09/03/17 22:08 Dose: 0.4 mg Potassium Chloride (Klor-Con 10) 30 meq PO ONCE ONE Stop: 09/05/17 10:01 Last Admin: 09/05/17 09:08 Dose: 30 meq Disposition/Present on Arrival - Present on Arrival Any Indicators Present on Arrival: No History of DVT/PE: No History of Uncontrolled Diabetes: Yes Urinary Catheter: No History of Decub. Ulcer: No History Surgical Site Infection Following: None - Disposition Have Diagnosis and Disposition been Completed?: Yes Diagnosis: Chest pain with moderate risk of acute coronary syndrome, At risk for sepsis, Dyspnea on exertion, Acute CHF, Hypertensive urgency, Poorly controlled diabetes mellitus, Acute hyperglycemia Disposition: HOSPITALIZED Disposition Time: 22:44 Patient Plan: Admission, Telemetry Patient Problems: Current Active Problems Problem Status Onset Poorly controlled diabetes mellitus Acute Chest pain with moderate risk of acute coronary syndrome Acute At risk for sepsis Acute Dyspnea on exertion Acute Acute CHF Acute Hypertensive urgency Acute Acute hyperglycemia Acute Condition: FAIR
[2017-09-03] MEDS ORDERED: Nitroglycerin 50mg in D5W 50 MG/250 ML BOTTLE IV PRN (21:38)
[2017-09-03 21:48] LABS: BASO # 0.03 K/mm3 (0.0-2.0); BASO % 0.1 % (0.0-3.0); EOS # 0.1 (0.0-0.7); EOS % 0.4 % (1.5-5.0); GRAN # 17.72 (1.4-6.5); GRAN % 85.4 % (50.0-68.0); HEMOGLOBIN 14.7 g/dL (14.0-18.0); LYMPH # 1.6 (1.2-3.4); LYMPH % 7.8 % (22.0-35.0); MEAN CELL VOLUME 86.9 fl (80.0-105.0); MEAN CORPUSCULAR HGB CONC 34.5 g/dl (31.0-37.0); MEAN PLATELET VOLUME 9.9 fl (7.0-11.0); MONO # 1.3 (0.1-0.6); MONO % 6.3 % (1.0-6.0); RBC 4.9 10^6/uL (3.5-6.1); RED CELL DISTRIBUTION WIDTH 13.3 % (11.5-14.5); WHITE BLOOD COUNT 20.8 10^3/ul (4.5-11.0)
[2017-09-03 22:02] LABS: VENOUS BLOOD GAS BASE EXCESS 6.1 mmol/L (0.0-2.0); VENOUS BLOOD GAS PO2 66 mm/Hg (30-55); VENOUS BLOOD PH 7.44 (7.32-7.43)
[2017-09-03 22:07] LABS: ALB/GLOB RATIO 1.1 (1.1-1.8); ALBUMIN 4.3 g/dL (3.0-4.8); ALT/SGPT 40 U/L (7-56); AST/SGOT 38 U/L (17-59); BLOOD UREA NITROGEN 24 mg/dL (7-21); CALCIUM 9.4 mg/dL (8.4-10.5); GFR AFRICAN-AMERICAN > 60; GFR NON-AFRICAN AMERICAN > 60; INR 1.07 (0.93-1.08); PARTIAL THROMBOPLASTIN TIME 24.8 Seconds (25.1-36.5); PROTHROMBIN TIME 12.2 SECONDS (9.4-12.5)
[2017-09-03] MEDS ORDERED: Labetalol 5 mg/ml Inj 20ML IV STA ×2 (22:07→23:25)
[2017-09-03 22:10] LABS: B-TYPE NATRIURETIC PEPTIDE 798 pg/mL (0-450); TROPONIN I 0.03 ng/mL
[2017-09-03] MEDS ORDERED: Insulin Regular 1 UNITS/0.01 ML ML IVP ONE (22:10)
[2017-09-03] MEDS ORDERED: cefTRIAXone 1 gm 1 GM/100 ML BAG IVPB STA (22:20)
[2017-09-03] MEDS ORDERED: Azithromycin 500MG/NS 250ml 500 MG/250 ML BAG IVPB STA (22:21)
[2017-09-04 01:55] LABS: VENOUS BLOOD GAS BASE EXCESS 5.6 mmol/L (0.0-2.0); VENOUS BLOOD GAS PO2 54 mm/Hg (30-55); VENOUS BLOOD PH 7.44 (7.32-7.43)
[2017-09-04] MEDS: Vancomycin 1gm in NS 250ml 1 GM/250 ML BAG IVPB SCH ×2 (06:38→17:33)
[2017-09-04] MEDS: Cefepime IV 2 gm in NS 2 GM/100 ML BAG IVPB SCH ×2 (08:30→22:12)
--- NOTE | 2017-09-04 09:21 | RAD ---
HISTORY: chest pain COMPARISON: 05/19/2017 TECHNIQUE: Chest PA and lateral FINDINGS: LUNGS: No active pulmonary disease. PLEURA: No significant pleural effusion identified. No pneumothorax apparent. CARDIOVASCULAR: Normal. OSSEOUS STRUCTURES: Sternal wires VISUALIZED UPPER ABDOMEN: Normal. OTHER FINDINGS: None. IMPRESSION: No active disease.
--- NOTE | 2017-09-04 11:03 | HP ---
CHIEF COMPLAINT AND HISTORY OF PRESENT ILLNESS: This is a 61-year-old male who is coming to the hospital complaining of pressure on his chest. He states he was painting yesterday and started having this pressure. He states that there was shortness of breath over the past two days. He said the pain was about 7/10. He was having chills. The patient states that it was nonradiating. He felt weak and diaphoretic. He was also feeling lightheadedness. The patient has no abdominal pain. No back pain. No dysuria, frequency. No nocturia. REVIEW OF SYMPTOMS: All other review of symptoms are within normal limits except that was mentioned. ALLERGIES: NO KNOWN DRUG ALLERGIES. PAST MEDICAL HISTORY: Coronary artery disease, diabetes type 2, dyslipidemia, carpal tunnel syndrome, sepsis. PHYSICAL EXAMINATION: VITAL SIGNS: Temperature is 98.2, pulse is 73, blood pressure is 150/89, respirations 18, T-max 100.2. GENERAL: The patient lying in bed, uncomfortable, and in no acute distress. HEENT: Atraumatic and normocephalic. Anicteric sclerae. Moist mucosa. Micro conjunctivae. No oral lesions. NECK: No JVD, anterior and posterior adenopathy, thyromegaly, or bruits. CARDIOVASCULAR: S1 and S2 regular. No murmur, rubs, or gallop. LUNGS: Clear to auscultation bilaterally. No wheezes, rales, or rhonchi. ABDOMEN: Bowel sounds are positive. Soft, nontender and nondistended. No hepatosplenomegaly. No rebound and no guarding EXTREMITIES: No cyanosis, clubbing, or edema. NEUROLOGIC: No facial asymmetry. Tongue is midline. No uvula deviation. Power is 5/5 upper extremity and lower extremity. Sensation intact in upper extremity and lower extremity. PSYCHIATRIC: He is awake, alert and oriented x3. No anxiety or depression. He has normal affect. GENITOURINARY: No CVA tenderness. VASCULAR: 2+ pulses in the carotid pulses and pedal pulses. SKIN: No erythema or nodules SPINE: Shows normal curvature. LABORATORY DATA: White count of 20. Chemistry shows glucose of 341, creatinine is 1.1, troponin is 0.03. His rest of the labs have been reviewed. Chest x-ray shows no infiltrates. EKG shows a heart rate of 102, sinus tachycardia. QTc is 500. ASSESSMENT: 1. Sepsis. 2. Coronary artery disease, status post coronary artery bypass graft. 3. Diabetes type 2. 4. Dyslipidemia. 5. Carpal tunnel syndrome. PLAN: The patient is currently comfortable. He is on aspirin daily. He is going to continue the carvedilol. The patient is on Lasix. He is going to continue with Lipitor for dyslipidemia. He is on antibiotics with cefepime. He was given Rocephin in the ER. He had elevated blood pressures, so he was given labetalol. His blood pressure has improved. He is going to be placed on medical floor. I will get Cardiology and ID to evaluate the patient. Zain Cam MD
--- NOTE | 2017-09-04 12:31 | CP.PCM.CON ---
History of Present Illness - History of Present Illness History of Present Illness: 61 year old male with PMH of HTN, CAD S/P CABG, S/P appendectomy, S/P carpal tunnel release, obesity with BMI 32 came in to [facility] after having chest discomfort while painting a wall. He has baseline dyspnea on exertion which he states has not increased, denies cough, no sore throat, no headache or dizziness , no abdominal pain, no arm pain, no diarrhea, no dysuria, no fever or chills. While having the chest discomfort, he also had diaphoresis, generalized weakness and lightheaded. In the ED, he was noted to have leukocytosis and low grade temperatures. Infectious diseases consult is requested to further evaluate and manage. Review of Systems - Review of Systems All systems: reviewed and no additional remarkable complaints except (as per HPI ) Past Patient History - Infectious Disease Hx of Infectious Diseases: None - Tetanus Immunizations Tetanus Immunization: Up to Date - Past Social History Smoking Status: Unknown If Ever Smoked - CARDIAC Hx Hypertension: Yes Hx Pacemaker: No - PULMONARY Hx Respiratory Disorders: Yes Hx Sleep Apnea: Yes - NEUROLOGICAL Hx Neurological Disorder: No - HEENT Hx HEENT Problems: No - RENAL Hx Chronic Kidney Disease: No - ENDOCRINE/METABOLIC Hx Diabetes Mellitus Type 2: Yes - HEMATOLOGICAL/ONCOLOGICAL Hx Blood Disorders: No - INTEGUMENTARY Hx Dermatological Problems: No - MUSCULOSKELETAL/RHEUMATOLOGICAL Hx Falls: No - GASTROINTESTINAL Hx Gastrointestinal Disorders: No - GENITOURINARY/GYNECOLOGICAL Other/Comment: R mastectomy at age14 - PSYCHIATRIC Hx Emotional Abuse: No Hx Physical Abuse: No - SURGICAL HISTORY Hx Appendectomy: Yes Hx Coronary Stent: Yes (x7) Hx Musculoskeletal Surgery: Yes Hx Open Heart Surgery: Yes (Bypass x 5) Other/Comment: Heart Stents x 9 - ANESTHESIA Hx Anesthesia: Yes Hx Anesthesia Reactions: No Hx Malignant Hyperthermia: No Meds Allergies/Adverse Reactions: Allergies Allergy/AdvReac Type Severity Reaction Status Date / Time No Known Allergies Allergy Verified 09/03/17 21:27 - Medications Medications: Current Medications Acetaminophen (Tylenol 325mg Tab) 650 mg PO Q4 PRN PRN Reason: Fever >100.4 F Last Admin: 09/04/17 02:09 Dose: 650 mg Physical Exam - Constitutional Appears: Non-toxic, Chronically Ill - Head Exam Head Exam: NORMAL INSPECTION - ENT Exam ENT Exam: Mucous Membranes Moist - Neck Exam Neck exam: Negative for: Lymphadenopathy, Meningismus - Respiratory Exam Respiratory Exam: Decreased Breath Sounds. absent: Rales - Cardiovascular Exam Cardiovascular Exam: +S1, +S2 - GI/Abdominal Exam GI & Abdominal Exam: Soft. absent: Tenderness Results - Vital Signs Recent Vital Signs: Last Vital Signs Temp 99.8 F H 09/04/17 01:38 Pulse 86 09/04/17 03:32 Resp 20 09/04/17 03:31 BP 159/91 H 09/04/17 03:31 Pulse Ox 95 09/04/17 03:31 - Labs Result Diagrams: 09/03/17 21:37 09/03/17 21:37 Labs: Laboratory Results - last 24 hr 09/03/17 09/04/17 23:13 01:35 pO2 54 VBG pH 7.44 H VBG pCO2 45.0 VBG HCO3 30.6 H VBG Total CO2 32.0 H VBG O2 Sat (Calc) 93.6 H VBG Base Excess 5.6 H VBG Potassium 3.4 L Sodium 137.0 Chloride 103.0 Glucose 321 H Lactate 1.1 FiO2 21.0 POC Glucose (mg/dL) 263 H Venous Blood Potassium 3.4 L Assessment & Plan - Assessment and Plan (Free Text) Plan: Assessment systemic inflammatory response syndrome, R/O due acute coronary syndrome, R/O sepsis but so far no source of infection identified history of sepsis due to infected right hallux infected wound with associated probable osteomyelitis, grew coagulase negative staph (probably a contaminant) and Morganella HTN CAD S/P CABG S/P appendectomy S/P carpal tunnel release obesity with BMI 32 Plan started Vancomycin and Cefepime pending blood, urine cx, PCT; CXR does not show infiltrates follow up Cardiology evaluation and recommendations will monitor clinically
--- NOTE | 2017-09-04 13:12 | CARD ---
APPROVED REPORT EKG Measurement Heart [id number] <Conclusion> Sinus rhythm with 1st degree AV block Left axis deviation IVCD STTW changes c/w ischemia
[2017-09-04] MEDS ORDERED: Insulin Lispro 1 UNITS/0.01 ML ONE (14:12)
[2017-09-04] MEDS: Insulin Lispro (HUMAlog) HIGH Coverage SC SCH ×3 (14:29→22:15)
[2017-09-04] MEDS: Insulin Lispro 1 UNITS/0.01 ML SC SCH (16:40)
--- NOTE | 2017-09-04 18:16 | CON ---
DATE: 09/04/2017 INDICATIONS: Shortness of breath, chest discomfort, leukocytosis. HISTORY OF PRESENT ILLNESS: This is a 61-year-old man known to me, admitted yesterday through the emergency room. He has been complaining of shortness of breath while painting the basement apartment of his daughter over the weekend. The shortness of breath became worse. There was some nausea. ER mentions chest pain, but this morning, the patient denies any chest pain occurred. He felt chills and nausea. There was no orthopnea, PND, syncope, presyncope, lightheadedness, dizziness, vertigo, palpitations, edema, claudication. PAST MEDICAL HISTORY: Notable for coronary artery disease with remote coronary artery bypass surgery in 2009. He has had coronary stents. The most recent in 05/2015, at which time, the circumflex artery was stented. He had severe triple-vessel disease, five bypasses with patent stents in several locations, mild LV dysfunction was noted at that time. In May of this year, he fell and suffered facial and head trauma. He also had the flu. 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 MEDICATIONS AT THE TIME OF ADMISSION: Include Coreg, Crestor, aspirin, Imdur, Lasix, NovoLog, Levemir, Xanax. ALLERGIES: THERE WERE NO MEDICATION ALLERGIES REPORTED. SOCIAL HISTORY: He lives at home. He does not smoke cigarettes. He does not drink alcohol significantly. He is ambulatory. REVIEW OF SYSTEMS: A 10-point review of systems is otherwise unremarkable except as noted above. FAMILY HISTORY: Noncontributory. PHYSICAL EXAMINATION: VITAL SIGNS: Unremarkable. He is in sinus rhythm. He is afebrile. Blood pressure 150/89, respirations 18-20, O2 sat 92%-95% on room air. GENERAL: He is resting comfortably on a stretcher in the emergency room. HEENT: Reveals no neck vein distention, thyromegaly or carotid bruits. Mucous membranes are moist. Conjunctivae pink. NECK: Supple. LUNGS: Lung cosby clear. HEART: Revealed normal first and second heart sounds. No murmur, gallop, rub or click. ABDOMEN: Soft. Bowel sounds present. No mass, organomegaly, tenderness, rebound, guarding, CVA tenderness or palpable abdominal aortic aneurysm. EXTREMITIES: Revealed no cyanosis, clubbing or edema. NEUROLOGICAL: Awake, alert, and oriented. SKIN: Warm and dry. No rash or cellulitis. PSYCHIATRIC: Normal as to mood and affect. LABORATORY AND IMAGING: A chest x-ray is a portable study, it is not yet interpreted. The lung cosby appear clear to my reading. No CHF, pneumonia or effusion. EKG is not available. Apparently, there were no changes noted. I will review this as soon as it is available. White count 20,800, hemoglobin 14.7, hematocrit 42.6, platelet count normal. PT/INR normal, PTT 24.8. Blood gases are noted. Electrolytes unremarkable. BUN 24, creatinine 1.1. LFTs unremarkable. CK 126, troponin 0.03, BNP 798. IMPRESSION: Jerardo Joseph is a 61-year-old man with known coronary artery disease, admitted with shortness of breath, which progressed this weekend while he was painting his daughter's basement apartment, he utilized latex paint. He says the windows were opened. This morning, he feels better. He does not mention chest pain, but the ER note says he came in complaining of chest pain as well as shortness of breath. PLAN: At this time, I will get serial EKGs and enzymes. I will review his old records. I will get an echocardiogram. He has been cultured. He is on antibiotics. There is an ID consultation pending. He will be in a telemetry bed. He can be out of bed to a chair. We will continue his usual medications including Coreg, Lipitor as a substitute for Crestor, aspirin, Imdur, Lasix. We will monitor I's and O's. Check stool for occult blood. I will follow along with you. I will make additional recommendations based on his clinical course. Nuclear stress testing will be considered as well. Wong Valadez MD MTDShraddha
[2017-09-04] MEDS: Insulin Detemir 100 units/ml Vial (Levemir) SC SCH (22:17)
--- NOTE | 2017-09-04 22:41 | CARD ---
APPROVED REPORT EKG Measurement Heart [id number] <Conclusion> Sinus tachycardia Right bundle branch block Left anterior fascicular block Bifascicular block Left ventricular hypertrophy with repolarization abnormality Abnormal ECG
[2017-09-05 04:43] LABS: URINE BILIRUBIN NEGATIVE (NEGATIVE); URINE BLOOD SMALL (NEGATIVE); URINE GLUCOSE (UA) 500 mg/dL (NEGATIVE); URINE LEUKOCYTE ESTERASE NEGATIVE Leu/uL (NEGATIVE); URINE PROTEIN >=300 mg/dL (<30 mg/dL); URINE UROBILINOGEN 0.2 E.U./dL (<1 E.U./dL)
[2017-09-05 04:50] LABS: URINE APPEARANCE SL CLOUDY (CLEAR); URINE COLOR YELLOW (YELLOW)
[2017-09-05 05:05] LABS: URINE AMORPHOUS SEDIMENT FEW; URINE BACTERIA OCC (NEG); URINE EPITHELIAL CELLS 0 - 2 /hpf (0-5); URINE HYALINE CAST 0 - 2 /hpf; URINE RBC 0 - 2 /hpf (0-2); URINE WBC 0 - 2 /hpf (0-6)
[2017-09-05] MEDS: Vancomycin 1gm in NS 250ml 1 GM/250 ML BAG IVPB SCH (05:48)
[2017-09-05 06:52] LABS: HEMOGLOBIN 13.1 g/dL (14.0-18.0); MEAN CELL VOLUME 87.5 fl (80.0-105.0); MEAN CORPUSCULAR HEMOGLOBIN 29.2 pg (25.0-35.0); MEAN CORPUSCULAR HGB CONC 33.3 g/dl (31.0-37.0); MEAN PLATELET VOLUME 9.7 fl (7.0-11.0); RBC 4.49 10^6/uL (3.5-6.1); RED CELL DISTRIBUTION WIDTH 13.4 % (11.5-14.5); WHITE BLOOD COUNT 12.7 10^3/ul (4.5-11.0)
[2017-09-05 07:56] LABS: ALB/GLOB RATIO 0.9 (1.1-1.8); ALBUMIN 3.4 g/dL (3.0-4.8); ALT/SGPT 34 U/L (7-56); AST/SGOT 22 U/L (17-59); BLOOD UREA NITROGEN 19 mg/dL (7-21); CALCIUM 8.5 mg/dL (8.4-10.5); GFR AFRICAN-AMERICAN > 60; GFR NON-AFRICAN AMERICAN > 60
--- NOTE | 2017-09-05 08:11 | CP.PCM.PN ---
Subjective - Date & Time of Evaluation Date of Evaluation: 09/05/17 Time of Evaluation: 07:00 - Subjective Subjective: Stable on 5R. He feels better. No chst pain or dyspnea. V/S noted. PE: Lungs: clear Cor.: S1S2 Abd.: soft Ext.: no edema Neuro.: alert I/O = 940/200 recorded Labs noted: K+= 3.6, Cr.= 1.1, trop 0.03 BC X2 NG at 24 hrs. ECG 09/04: RSR, LAD, IVCD, STTW changes c/w ischemia Objective - Vital Signs/Intake and Output Vital Signs (last 24 hours): Temp Pulse Resp BP Pulse Ox 97.9 F 69 18 166/87 H 94 L 09/05/17 06:00 09/05/17 06:00 09/05/17 06:00 09/05/17 06:00 09/05/17 06:00 Intake and Output: 09/05/17 09/05/17 06:59 18:59 Intake Total 940 Output Total 200 Balance 740 - Medications Medications: Current Medications Acetaminophen (Tylenol 325mg Tab) 650 mg PO Q4 PRN PRN Reason: Fever >100.4 F Last Admin: 09/04/17 02:09 Dose: 650 mg Aspirin (Aspirin Chewable) 81 mg PO DAILY [facility] Last Admin: 09/04/17 09:24 Dose: 81 mg Atorvastatin Calcium (Lipitor) 40 mg PO DIN [facility] Last Admin: 09/04/17 17:33 Dose: 40 mg Carvedilol (Coreg) 12.5 mg PO BID [facility] Last Admin: 09/04/17 19:33 Dose: 12.5 mg Furosemide (Lasix) 40 mg PO DAILY [facility] Last Admin: 09/04/17 09:25 Dose: 40 mg Cefepime HCl (Maxipime 2gm) 2 gm in 100 mls @ 100 mls/hr IVPB Q12 [facility] PRN Reason: Protocol Stop: 09/09/17 06:31 Last Admin: 09/04/17 22:12 Dose: 100 mls/hr Insulin Detemir (Levemir) 25 unit SC HS [facility] Last Admin: 09/04/17 22:17 Dose: 25 unit Insulin Human Lispro (Humalog High) 0 units SC ACHS [facility] PRN Reason: Protocol Last Admin: 09/04/17 22:15 Dose: Not Given Insulin Human Lispro (Humalog) 16 units SC ACBL [facility] Last Admin: 09/04/17 16:40 Dose: Not Given Isosorbide Mononitrate (Imdur Er) 30 mg PO DAILY [facility] Last Admin: 09/04/17 09:25 Dose: 30 mg - Labs Labs: 09/05/17 06:20 09/05/17 06:20 PT 12.2 SECONDS (9.4-12.5) 09/03/17 21:37 INR 1.07 (0.93-1.08) 09/03/17 21:37 APTT 24.8 Seconds (25.1-36.5) L 09/03/17 21:37 Assessment and Plan - Assessment and Plan (Free Text) Assessment: Dyspnea/Chest Tightness/Nausea CAD/CABG 2009/PCIs-last 05/19 Recent Flu. HBP Dm. HLD OM Rt. Toe CTS Remote AP Plan: Check Echo OOB ad zahra. Out-pt nuclear stress test to be arranged As per MARLEN and Dr. Cam
[2017-09-05] MEDS: Insulin Lispro (HUMAlog) HIGH Coverage SC SCH ×4 (08:46→23:14)
[2017-09-05] MEDS: Insulin Lispro 1 UNITS/0.01 ML SC SCH ×2 (08:47→11:15)
[2017-09-05] MEDS ORDERED: Potassium Chloride 10 mEq ER Tab PO ONE (10:00)
--- NOTE | 2017-09-05 10:22 | PN ---
DATE: 09/05/2017 SUBJECTIVE: The patient has no complaints of any chest pain. No shortness of breath. No headaches or dizziness. He states he is feeling better. He has no chills. OBJECTIVE: VITAL SIGNS: His temperature is 97.9, pulse is 69, blood pressure 166/78, respirations 18.. GENERAL: The patient is lying in bed, flat, comfortable. HEENT: No oral lesion. Anicteric sclerae. Moist mucosa. NECK: No JVD, adenopathy, or thyromegaly. CARDIOVASCULAR: S1 and S2, regular. No murmurs, rubs, or gallops. LUNGS: Clear to auscultation bilaterally. No wheeze, rales, or rhonchi. ABDOMEN: Bowel sounds are positive. Soft, nontender and nondistended. EXTREMITIES: No cyanosis, clubbing or edema. DATA: White count of 12.7, hemoglobin 13.1, creatinine is 1.1. Blood cultures negative x2. ASSESSMENT: 1. Sepsis. 2. Coronary artery disease, status post coronary artery bypass graft. 3. Diabetes type 2. 4. Dyslipidemia. 5. Carpal tunnel syndrome. PLAN: The patient has been on antibiotics. He is being followed by ID, I appreciate their input. The patient is on aspirin, is going to continue with Humalog for his diabetes. He is on Lasix daily. He is receiving his Levemir for his diabetes as well. He is on Lipitor for dyslipidemia. He is on cefepime. He had an echo that has been ordered. I will await input from ID regarding the patient's antibiotics being changed over to oral and for possible discharge. Zain Cam MD
[2017-09-05] MEDS: Cefepime IV 2 gm in NS 2 GM/100 ML BAG IVPB SCH (11:05)
--- NOTE | 2017-09-05 16:07 | CP.PCM.PN ---
Subjective - Date & Time of Evaluation Date of Evaluation: 09/05/17 Time of Evaluation: 11:55 - Subjective Subjective: Comfortable in bed, no chest pain, no SOB at rest, no fevers, no cough, no diarrhea, no abdominal pain. Objective - Vital Signs/Intake and Output Vital Signs (last 24 hours): Temp Pulse Resp BP Pulse Ox 98 F 72 16 148/85 96 09/04/17 22:47 09/04/17 22:47 09/04/17 22:47 09/04/17 22:47 09/04/17 22:47 Intake and Output: 09/05/17 09/05/17 06:59 18:59 Intake Total 940 Output Total 200 Balance 740 - Medications Medications: Current Medications Acetaminophen (Tylenol 325mg Tab) 650 mg PO Q4 PRN PRN Reason: Fever >100.4 F Last Admin: 09/04/17 02:09 Dose: 650 mg Aspirin (Aspirin Chewable) 81 mg PO DAILY [facility] Last Admin: 09/04/17 09:24 Dose: 81 mg Atorvastatin Calcium (Lipitor) 40 mg PO DIN [facility] Last Admin: 09/04/17 17:33 Dose: 40 mg Carvedilol (Coreg) 12.5 mg PO BID [facility] Last Admin: 09/04/17 19:33 Dose: 12.5 mg Furosemide (Lasix) 40 mg PO DAILY [facility] Last Admin: 09/04/17 09:25 Dose: 40 mg Cefepime HCl (Maxipime 2gm) 2 gm in 100 mls @ 100 mls/hr IVPB Q12 [facility] PRN Reason: Protocol Stop: 09/09/17 06:31 Last Admin: 09/04/17 22:12 Dose: 100 mls/hr Vancomycin HCl (Vancomycin 1gm) 1 gm in 250 mls @ 167 mls/hr IVPB Q12H [facility] PRN Reason: Protocol Last Admin: 09/05/17 05:48 Dose: 167 mls/hr Insulin Detemir (Levemir) 25 unit SC HS [facility] Last Admin: 09/04/17 22:17 Dose: 25 unit Insulin Human Lispro (Humalog High) 0 units SC ACHS [facility] PRN Reason: Protocol Last Admin: 09/04/17 22:15 Dose: Not Given Insulin Human Lispro (Humalog) 16 units SC ACBL [facility] Last Admin: 09/04/17 16:40 Dose: Not Given Isosorbide Mononitrate (Imdur Er) 30 mg PO DAILY [facility] Last Admin: 09/04/17 09:25 Dose: 30 mg - Labs Labs: PT 12.2 SECONDS (9.4-12.5) 09/03/17 21:37 INR 1.07 (0.93-1.08) 09/03/17 21:37 APTT 24.8 Seconds (25.1-36.5) L 09/03/17 21:37 - Constitutional Appears: Non-toxic, Chronically Ill - Head Exam Head Exam: NORMAL INSPECTION - ENT Exam ENT Exam: Mucous Membranes Moist - Neck Exam Neck Exam: absent: Meningismus - Respiratory Exam Respiratory Exam: absent: Rales - Cardiovascular Exam Cardiovascular Exam: +S1, +S2 - GI/Abdominal Exam GI & Abdominal Exam: Soft. absent: Tenderness Assessment and Plan - Assessment and Plan (Free Text) Plan: Assessment systemic inflammatory response syndrome, R/O due acute coronary syndrome, no evidence of sepsis identified history of sepsis due to infected right hallux infected wound with associated probable osteomyelitis, grew coagulase negative staph (probably a contaminant) and Morganella HTN CAD S/P CABG S/P appendectomy S/P carpal tunnel release obesity with BMI 32 Plan blood cx are negative, urinalysis does not show pyuria or bacteria, PCT is only 0.24; CXR does not show infiltrates - will d/c antibiotics and observe follow up Cardiology evaluation and recommendations
--- NOTE | 2017-09-05 19:13 | CARD ---
APPROVED REPORT EXAM: Two-dimensional and M-mode echocardiogram with Doppler and color Doppler. INDICATION 2D DIMENSIONS Left Atrium (2D)4.8 (1.6-4.0cm)IVSd1.4 (0.7-1.1cm) LVDd6.0 (3.9-5.9cm)PWd1.4 (0.7-1.1cm) LVDs4.9 (2.5-4.0cm)FS (%) 19.0 % LVEF (%)38.5 (>50%) M-Mode DIMENSIONS Aortic Root3.70 (2.2-3.7cm)Aortic Cusp Exc.2.20 (1.5-2.0cm) Aortic Valve AoV Peak Srvgihpj057.0cm/Monie Peak GR.8mmHg Mitral Valve MV E Ebkiriho22.6cm/sMV A Lycylqbf45.8cm/sE/A ratio0.8 TDI Lateral E' Peak V4.68cm/sMedial E' Peak V4.29cm/sE/Lateral E'14.2 E/Medial E'15.5 Tricuspid Valve TR Peak Gxyftgyq970gv/sRAP [id number] Peak Gr.15mmHg [id number] LEFT VENTRICLE The left ventricle is normal size. There is mild concentric left ventricular hypertrophy. The systolic function is mildly to moderately impaired. There is global hypokinesis of the left ventricle. RIGHT VENTRICLE The right ventricle is normal size. The right ventricular systolic function is normal. ATRIA The left atrium is moderately dilated. The right atrium size is normal. The interatrial septum is intact with no evidence for an atrial septal defect. AORTIC VALVE The aortic valve is normal in structure. No aortic regurgitation is present. There is no aortic valvular stenosis. MITRAL VALVE The mitral valve is normal in structure. Mitral regurgitation is mild. TRICUSPID VALVE The tricuspid valve is normal in structure. The tricuspid valve is normal in structure. There is mild tricuspid regurgitation. PULMONIC VALVE The pulmonary valve is normal in structure. GREAT VESSELS The aortic root is normal in size. The IVC is normal in size and collapses >50% with inspiration. PERICARDIAL EFFUSION There is no pleural effusion. There is no pericardial effusion. <Conclusion> Dilated LA. Mild concentric LVH. Normal LV size size. Mild to moderately reduced LV systolic function. Global LV hypokinesis. Overall EF-40%. Mild tricuspid regurgitation.
[2017-09-05] MEDS: Insulin Detemir 100 units/ml Vial (Levemir) SC SCH (22:40)
[2017-09-06 07:01] VITALS: PULSE 70
[2017-09-06 07:56] VITALS: RESP 18; TEMP 97.6; O2SAT 92
[2017-09-06] MEDS: Insulin Lispro 1 UNITS/0.01 ML SC SCH (08:58)
[2017-09-06] MEDS: Insulin Lispro (HUMAlog) HIGH Coverage SC SCH (08:58)
[2017-09-06 09:00] VITALS: BP 151/86
--- NOTE | 2017-09-06 12:10 | PN ---
DATE: 09/06/2017 SUBJECTIVE: The patient is seen ambulating in his room. He states he feels comfortable. He has had no further chills or recurrence of his presenting symptoms. Antibiotics have been discontinued. The blood cultures have been negative. CURRENT MEDICATIONS: Include aspirin, carvedilol 12.5 mg b.i.d., insulin, Imdur 30 mg daily, Lasix 40 mg daily, Lipitor 40 mg daily, Norvasc 10 mg daily. OBJECTIVE: GENERAL: He is an overweight middle-aged man. VITAL SIGNS: Blood pressure is 150/86 with pulse of 70, respirations are 16. He is afebrile. HEENT: Head normocephalic, atraumatic. NECK: Supple. No JVD noted. CHEST: Bilateral scattered rhonchi. HEART: PMI in normal position. Systolic murmur is present in the left sternal border. ABDOMEN: Soft, mildly obese, nontender, normoactive bowel sounds. EXTREMITIES: No edema. DIAGNOSTIC DATA: No blood work pending from this morning. All cultures have been negative. Echocardiogram was reviewed. This reveals dilated left atrium with mild concentric LVH, normal LV size with mild to moderate LV systolic dysfunction and overall ejection fraction of 40%. Mild tricuspid regurgitation was noted. This is relatively unchanged from prior findings. IMPRESSION: 1. Recent dyspnea, nausea and chest discomfort. Etiology uncertain, clinically improved. 2. Apparent recent influenza, resolved. 3. Coronary artery disease, status post prior bypass surgery and percutaneous coronary interventions. Appears stable at present. RECOMMENDATIONS: From cardiac standpoint, he appears stable to discharge home at this time. Intensification of antihypertensive therapy is advised. Outpatient followup will be arranged. A followup stress test will be planned as well. The need for exercise and weight loss was discussed with him as well. We will be happy to arrange for outpatient followup upon discharge. Jose Luis Rascon MD
--- NOTE | 2017-09-07 06:08 | DS ---
HISTORY OF PRESENT ILLNESS: This is a 61-year-old male who had come into the hospital, was found to have sepsis with an elevated white cell count. He is placed on IV antibiotics. He had blood cultures that were negative. He had an echocardiogram done that showed dilated left atria with mild concentric LVH, EF was 40%. There is mild to moderate reduced LV dysfunction. He is currently comfortable. He is off his antibiotics. He will be discharged home. PHYSICAL EXAMINATION: VITAL SIGNS: His temperature is 97.6, pulse is 71, blood pressure 175/90, respirations 18. GENERAL: The patient is lying in bed, flat, comfortable. HEENT: No oral lesion. Anicteric sclerae. Moist mucosa. NECK: No JVD, adenopathy, or thyromegaly. CARDIOVASCULAR: S1 and S2, regular. No murmurs, rubs, or gallops. LUNGS: Clear to auscultation bilaterally. No wheeze, rales, or rhonchi. ABDOMEN: Bowel sounds are positive, soft, nontender and nondistended. EXTREMITIES: No cyanosis, clubbing or edema. ASSESSMENT: 1. Sepsis, resolved, no source found. 2. Coronary artery disease, status post coronary artery bypass graft. 3. Diabetes type 2. 4. Dyslipidemia. 5. Carpal tunnel syndrome. 6. Congestive heart failure, chronic stable systolic dysfunction, EF of 40%. PLAN: The patient is seen by Dr. Valadez. He is going to continued to be followed. He is on Coreg. He is on aspirin. The patient is on isosorbide. He has a high blood pressure. He normally takes Norvasc which is not on the list of his medications, we will continue Norvasc. He is on Lipitor for dyslipidemia. He is on Lasix. We will discharge him today from the hospital and have him follow up as an outpatient for his blood pressure check. Discharged home. CONDITION: Stable. ACTIVITIES: Increase as tolerated. FOLLOWUP: In 1 to 2 weeks. Zain Cam MD
== END 2017-09-06 11:44 | disposition home or self-care (01) | DRG 872 ==
LOC: ED 21:05 → ERH 22:36 → 5RNO 09-04 14:42
PROVIDERS: ADMIT Internal Medicine Nephrology; ATTEND Internal Medicine Nephrology
DX: A41.9 Sepsis, unspecified organism (principal); I50.22 Chronic systolic (congestive) heart failure; I11.0 Hypertensive heart disease with heart failure; E11.65 Type 2 diabetes mellitus with hyperglycemia; I16.0 Hypertensive urgency; I25.10 Atherosclerotic heart disease of native coronary artery without angina pectoris; G56.00 Carpal tunnel syndrome, unspecified upper limb; E78.5 Hyperlipidemia, unspecified; G47.30 Sleep apnea, unspecified; E66.9 Obesity, unspecified; Z68.32 Body mass index [BMI] 32.0-32.9, adult; Z79.82 Long term (current) use of aspirin; Z95.5 Presence of coronary angioplasty implant and graft; Z95.1 Presence of aortocoronary bypass graft